=== PATIENT | male | born 1980 | race Caucasian/White ===

== ENCOUNTER 2019-08-31 14:27 | Emergency (ER) | payer OTHER ==
[2019-08-31 14:33] VITALS: RESP 18
[2019-08-31] MEDS ORDERED: ONDANSETRON 4 MG/2 ML VIAL IVP STA (14:55)
[2019-08-31] MEDS ORDERED: SODIUM CHLORIDE 0.9% 1,000 ML IV STA (14:55)
[2019-08-31 15:05] LABS: Basophils # (A) 0.1 k/uL (0-0.2); Basophils % (A) 1 %; Eosinophils # (A) 0.1 k/uL (0-0.7); Eosinophils % (A) 1 %; HCT 45.2 % (39.0-53.0); HGB 15.1 gm/dL (13.0-17.5); Lymphocytes # (A) 1.1 k/uL (1.0-4.8); Lymphocytes % (A) 12 %; MCH 30.5 pg (25.0-35.0); MCHC 33.3 g/dL (31.0-37.0); MCV 91.6 fL (80.0-100.0); Mean Platelet Volume 7.4; Monocytes # (A) 0.3 k/uL (0-1.0); Monocytes % (A) 3 %; Neutrophils # (A) 7.1 k/uL (1.3-7.7); Neutrophils % (A) 82 %; Platelet Count 351 k/uL (150-450); RBC 4.94 m/uL (4.30-5.90); RDW 14.8 % (11.5-15.5); WBC 8.7 k/uL (3.8-10.6)
--- NOTE | 2019-08-31 15:10 | ED ---
General Adult HPI - General Chief complaint: Abdominal Pain Stated complaint: Vomiting Time Seen by Provider: 08/31/19 14:38 Source: patient, RN notes reviewed Mode of arrival: ambulatory Limitations: no limitations - History of Present Illness Initial comments: 39-year-old male with a past medical history of kidney stones, psoriasis, alcoholism presents to the emergency department for a little nausea vomiting. Patient states he has been nauseous with episodes of vomiting for the past 24 hours. Patient states he thinks he has food poisoning. He denies any significant abdominal pain. Denies any diarrhea. Patient states that with a possible he actually started feeling better but they seem he needs some fluids and antinausea medication. He does not have any history of fevers.Patient has no other complaints at this time including shortness of breath, chest pain, abdominal pain, headache, or visual changes. - Related Data Home Medications Medication Instructions Recorded Confirmed Divalproex [Depakote] 500 mg PO TID 09/10/14 05/14/15 Ibuprofen [Motrin] 800 mg PO Q6HR PRN 09/10/14 05/14/15 diphenhydrAMINE [Benadryl] 50 mg PO HS PRN 09/10/14 05/14/15 PARoxetine [Paxil] 20 mg PO DAILY 05/14/15 05/14/15 Previous Rx's Medication Instructions Recorded Dicyclomine [Bentyl] 20 mg PO QID #20 tablet 05/14/15 Ondansetron Odt [Zofran ODT] 4 mg PO Q8HR PRN #15 tab 05/14/15 Ondansetron [Zofran ODT] 4 mg PO Q8HR PRN #15 tab 08/31/19 Allergies Allergy/AdvReac Type Severity Reaction Status Date / Time No Known Allergies Allergy Verified 08/31/19 14:29 Review of Systems ROS Statement: Those systems with pertinent positive or pertinent negative responses have been documented in the HPI. ROS Other: All systems not noted in ROS Statement are negative. Past Medical History Past Medical History: Seizure Disorder Additional Past Medical History / Comment(s): kidney stones, psorasis, hx alcoho lism History of Any Multi-Drug Resistant Organisms: None Reported Additional Past Surgical History / Comment(s): oral surgery Past Psychological History: Anxiety Smoking Status: Current every day smoker Past Alcohol Use History: Daily, Occasional Past Drug Use History: Marijuana General Exam Limitations: no limitations General appearance: alert, in no apparent distress Head exam: Present: atraumatic, normocephalic, normal inspection Eye exam: Present: normal appearance, PERRL, EOMI. Absent: scleral icterus, conjunctival injection, periorbital swelling ENT exam: Present: normal exam, mucous membranes moist Neck exam: Present: normal inspection, full ROM. Absent: tenderness, m eningismus, lymphadenopathy Respiratory exam: Present: normal lung sounds bilaterally. Absent: respiratory distress, wheezes, rales, rhonchi, stridor Cardiovascular Exam: Present: regular rate, normal rhythm, normal heart sounds. Absent: systolic murmur, diastolic murmur, rubs, gallop, clicks GI/Abdominal exam: Present: soft, normal bowel sounds. Absent: distended, tenderness, guarding, rebound, rigid Neurological exam: Present: alert Course Vital Signs 08/31/19 14:30 Temperature 98.7 F Pulse Rate 87 Respiratory 18 Rate Blood Pressure 134/79 O2 Sat by Pulse 100 Oximetry Medical Decision Making - Medical Decision Making Vitals are stable. CBC CMP unremarkable. Anion gap of 15 likely related to start racing a ptosis. Amylase and lipase minimally elevated however not 3 times above normal limits. Patient does not have any abdominal pain consistent with pancreatitis. Patient was given fluids and Zofran and actually had significant improvement in pain. Patient will be discharged home to follow up with primary care. He will return here to the emergency room for any worsening symptoms. - Lab Data Result diagrams: 08/31/19 14:43 08/31/19 14:57 Lab Results 08/31/19 08/31/19 Range/Units 14:43 14:57 WBC 8.7 (3.8-10.6) k/uL RBC 4.94 (4.30-5.90) m/uL Hgb 15.1 (13.0-17.5) gm/dL Hct 45.2 (39.0-53.0) % MCV 91.6 (80.0-100.0) fL MCH 30.5 (25.0-35.0) pg MCHC 33.3 (31.0-37.0) g/dL RDW 14.8 (11.5-15.5) % Plt Count 351 (150-450) k/uL Neutrophils % 82 % Lymphocytes % 12 % Monocytes % 3 % Eosinophils % 1 % Basophils % 1 % Neutrophils # 7.1 (1.3-7.7) k/uL Lymphocytes # 1.1 (1.0-4.8) k/uL Monocytes # 0.3 (0-1.0) k/uL Eosinophils # 0.1 (0-0.7) k/uL Basophils # 0.1 (0-0.2) k/uL Sodium 142 (137-145) mmol/L Potassium 4.0 (3.5-5.1) mmol/L Chloride 110 H (98-107) mmol/L Carbon Dioxide 17 L (22-30) mmol/L Anion Gap 15 mmol/L BUN 10 (9-20) mg/dL Creatinine 0.52 L (0.66-1.25) mg/dL Est GFR (CKD-EPI)AfAm >90 (>60 ml/min/1.73 sqM) Est GFR (CKD-EPI)NonAf >90 (>60 ml/min/1.73 sqM) Glucose 108 H (74-99) mg/dL Calcium 9.5 (8.4-10.2) mg/dL Total Bilirubin 0.3 (0.2-1.3) mg/dL AST 28 (17-59) U/L ALT 26 (4-49) U/L Alkaline Phosphatase 70 (38-126) U/L Total Protein 7.2 (6.3-8.2) g/dL Albumin 4.7 (3.5-5.0) g/dL Amylase 115 H (30-110) U/L Lipase 343 H (23-300) U/L Disposition Clinical Impression: Nausea and vomiting Disposition: HOME SELF-CARE Condition: Good Instructions (If sedation given, give patient instructions): Acute Nausea and Vomiting (ED) Additional Instructions: Please take Zofran as directed. Please follow-up with primary care in 1-2 days. Return here to the emergency room for any worsening symptoms. Prescriptions: Ondansetron [Zofran ODT] 4 mg PO Q8HR PRN #15 tab PRN Reason: Nausea Is patient prescribed a controlled substance at d/c from ED?: No Referrals: Roshni Valerio MD [Primary Care Provider] - 1-2 days Time of Disposition: 15:42
[2019-08-31 15:13] LABS: ALT 26 U/L (4-49); AST 28 U/L (17-59); African American GFR (CKD) >90 (>60 ml/min/1.73 sqM); Albumin 4.7 g/dL (3.5-5.0); Alkaline Phosphatase 70 U/L (38-126); Amylase 115 U/L (30-110); Anion Gap 15 mmol/L; Blood Urea Nitrogen 10 mg/dL (9-20); Calcium 9.5 mg/dL (8.4-10.2); Carbon Dioxide 17 mmol/L (22-30); Chloride 110 mmol/L (98-107); Glucose 108 mg/dL (74-99); Non-African American GFR(CKD) >90 (>60 ml/min/1.73 sqM); Sodium 142 mmol/L (137-145); Total Bilirubin 0.3 mg/dL (0.2-1.3); Total Protein 7.2 g/dL (6.3-8.2)
--- NOTE | 2019-08-31 15:22 | XR ---
EXAMINATION TYPE: XR KUB DATE OF EXAM: 08/31/2019 COMPARISON: 05/14/2015 HISTORY: Abdominal pain TECHNIQUE: 2 views upright FINDINGS: There is no sign of intestinal obstruction or pneumoperitoneum. Fecal pattern is normal. Yanci ng bases are clear. There are no pathologic calcifications. IMPRESSION: Nonacute abdomen. No change.
[2019-08-31] MEDS ORDERED: ONDANSETRON 4 MG ODT STARTER PACK 2 TAB BTL PO STA (15:43)
[2019-08-31 15:51] VITALS: BP 120/85; PULSE 88; TEMP 99
== END 2019-08-31 15:51 | disposition home or self-care (01) ==
LOC: EC 14:27
DX: R11.2 Nausea with vomiting, unspecified (principal); G40.909 Epilepsy, unspecified, not intractable, without status epilepticus; F41.9 Anxiety disorder, unspecified; F17.200 Nicotine dependence, unspecified, uncomplicated; Z79.899 Other long term (current) drug therapy
CPT/HCPCS: 36415; 80053; 82150; 83690; 85025; 74018; 99284; 96374; 96361; J2405; S0119

== ENCOUNTER 2019-11-03 08:46 | Emergency (ER) | payer OTHER ==
[2019-11-03 08:58] VITALS: RESP 18
--- NOTE | 2019-11-03 09:11 | ED ---
General Adult HPI - General Chief complaint: Psychiatric Symptoms Stated complaint: (Withdrawal/suicidal thoughts Time Seen by Provider: 11/03/19 08:58 Source: patient, RN notes reviewed Mode of arrival: ambulatory Limitations: no limitations - History of Present Illness Initial comments: Patient is a pleasant 39-year-old male presenting to the emergency department with thoughts of getting off opiates. Patient states he has been on opiates for years and wants to get off them. Last used yesterday. Patient states he has had problems with fentanyl and hydrocodone and others. Patient states he does feel achy all over. Patient states earlier today he felt a little bit suicidal. Patient denies having any plan. No homicidal thoughts. - Related Data Home Medications Medication Instructions Recorded Confirmed Adalimumab [Humira Pen] 40 mg SQ Q14D 11/03/19 11/03/19 PARoxetine HCL [Paxil] 30 mg PO DAILY 11/03/19 11/03/19 Sildenafil Citrate 50 mg PO DAILY PRN 11/03/19 11/03/19 Terbinafine [LamISIL] 250 mg PO DAILY 11/03/19 11/03/19 tiZANidine HCL 4 mg PO DAILY 11/03/19 11/03/19 traZODone HCL [Desyrel] 100 mg PO HS 11/03/19 11/03/19 Allergies Allergy/AdvReac Type Severity Reaction Status Date / Time No Known Allergies Allergy Verified 11/03/19 10:13 Review of Systems ROS Statement: Those systems with pertinent positive or pertinent negative responses have been documented in the HPI. ROS Other: All systems not noted in ROS Statement are negative. Constitutional: Denies: fever Eyes: Denies: eye pain ENT: Denies: ear pain Respiratory: Denies: cough Cardiovascular: Denies: chest pain Gastrointestinal: Denies: vomiting Genitourinary: Denies: dysuria Musculoskeletal: Denies: arthralgia Skin: Reports: rash (Patient states he has psoriasis that is actually improving) Neurological: Reports: headache (Mild headache) Psychiatric: Reports: as per HPI Past Medical History Past Medical History: Seizure Disorder Additional Past Medical History / Comment(s): kidney stones, psorasis, hx alcoholism History of Any Multi-Drug Resistant Organisms: None Reported Additional Past Surgical History / Comment(s): oral surgery Past Psychological History: Anxiety, Bipolar Smoking Status: Current every day smoker, Vaper Past Alcohol Use History: None Reported Past Drug Use History: Marijuana, Opiates General Exam Limitations: no limitations General appearance: alert, in no apparent distress Head exam: Present: normocephalic Eye exam: Present: normal appearance Neck exam: Present: normal inspection Respiratory exam: Present: normal lung sounds bilaterally Cardiovascular Exam: Present: regular rate, normal rhythm GI/Abdominal exam: Present: soft. Absent: tenderness Extremities exam: Present: normal inspection Neurological exam: Present: alert Psychiatric exam: Present: normal affect, normal mood Skin exam: Present: other (Patient has diffuse lesions including the back that appear chronic with patient's history of psoriasis) Course Vital Signs 11/03/19 11/03/19 08:52 12:45 Temperature 98.1 F 99.2 F Pulse Rate 85 74 Respiratory 18 18 Rate Blood Pressure 133/87 127/72 O2 Sat by Pulse 100 98 Oximetry Medical Decision Making - Medical Decision Making Patient seen by mental health services with plan for discharge. Patient reevaluated and denies suicidal ideation and does contract for safety. Patient states he'll head to [place] tomorrow for rehab. Patient was given rehab facility numbers. - Lab Data Lab Results 11/03/19 Range/Units 09:19 Urine Opiates Screen Not Detected (NotDetected) Ur Oxycodone Screen Not Detected (NotDetected) Urine Methadone Screen Not Detected (NotDetected) Ur Propoxyphene Screen Not Detected (NotDetected) Ur Barbiturates Screen Not Detected (NotDetected) U Tricyclic Antidepress Not Detected (NotDetected) Ur Phencyclidine Scrn Not Detected (NotDetected) Ur Amphetamines Screen Not Detected (NotDetected) U Methamphetamines Scrn Not Detected (NotDetected) U Benzodiazepines Scrn Not Detected (NotDetected) Urine Cocaine Screen Not Detected (NotDetected) U Marijuana (THC) Screen Detected H (NotDetected) Disposition Clinical Impression: Depression, Opiate abuse, continuous Disposition: HOME SELF-CARE Condition: Stable Instructions (If sedation given, give patient instructions): Depression (ED), Opioid Withdrawal (ED), Opioid Use Disorder (ED) Additional Instructions: Please follow-up with primary care physician in the next couple days for reche ck. Please follow-up with drug rehab, number provided. Return for thoughts of self-harm, worsening symptoms or other concerns. Is patient prescribed a controlled substance at d/c from ED?: No Referrals: Roshni Valerio MD [Primary Care Provider] - 1-2 days Time of Disposition: 14:36
[2019-11-03 10:38] LABS: Amphetamine Screen,Urine Not Detected (NotDetected); Barbiturate Screen,Urine Not Detected (NotDetected); Benzodiazepines Screen,Urine Not Detected (NotDetected); Cocaine Screen,Urine Not Detected (NotDetected); Methadone Screen, Urine Not Detected (NotDetected); Opiate Screen,Urine Not Detected (NotDetected); Oxycodone Screen, Urine Not Detected (NotDetected); Phencyclidine Screen,Urine Not Detected (NotDetected); Tricyclic Antidepressant,Urine Not Detected (NotDetected); Urn Cannabinoid Scrn Detected (NotDetected)
[2019-11-03] MEDS ORDERED: LORazepam 1 MG TAB PO STA (12:14)
[2019-11-03 14:58] VITALS: BP 134/86; PULSE 82; TEMP 98.8
== END 2019-11-03 14:59 | disposition home or self-care (01) ==
LOC: EC 08:46
DX: F31.9 Bipolar disorder, unspecified (principal); F11.10 Opioid abuse, uncomplicated; L98.9 Disorder of the skin and subcutaneous tissue, unspecified; F41.9 Anxiety disorder, unspecified; F17.290 Nicotine dependence, other tobacco product, uncomplicated; Z79.899 Other long term (current) drug therapy
CPT/HCPCS: 80306; 82075; 99285

== ENCOUNTER 2020-06-12 18:38 | Inpatient (IN) | payer OTHER ==
[2020-06-12 20:02] LABS: Basophils # (A) 0.1 k/uL (0-0.2); Basophils % (A) 1 %; Eosinophils # (A) 0.1 k/uL (0-0.7); Eosinophils % (A) 1 %; HCT 50.3 % (39.0-53.0); HGB 17.3 gm/dL (13.0-17.5); Lymphocytes # (A) 2.1 k/uL (1.0-4.8); Lymphocytes % (A) 19 %; MCH 30.1 pg (25.0-35.0); MCHC 34.5 g/dL (31.0-37.0); MCV 87.2 fL (80.0-100.0); Mean Platelet Volume 7.2; Monocytes # (A) 0.5 k/uL (0-1.0); Monocytes % (A) 5 %; Neutrophils # (A) 8.3 k/uL (1.3-7.7); Neutrophils % (A) 74 %; Platelet Count 304 k/uL (150-450); RBC 5.76 m/uL (4.30-5.90); RDW 14.9 % (11.5-15.5); WBC 11.2 k/uL (3.8-10.6)
[2020-06-12 20:08] LABS: Amphetamine Screen,Urine Not Detected (NotDetected); Barbiturate Screen,Urine Not Detected (NotDetected); Benzodiazepines Screen,Urine Not Detected (NotDetected); Cocaine Screen,Urine Not Detected (NotDetected); Methadone Screen, Urine Not Detected (NotDetected); Opiate Screen,Urine Not Detected (NotDetected); Oxycodone Screen, Urine Not Detected (NotDetected); Phencyclidine Screen,Urine Not Detected (NotDetected); Tricyclic Antidepressant,Urine Not Detected (NotDetected); Urn Cannabinoid Scrn Detected (NotDetected)
[2020-06-12 20:09] LABS: Appearance,Urine Clear (Clear); Bilirubin,Urine Negative (Negative); Blood,Urine Moderate (Negative); Color,Urine Yellow; Glucose,Urine (UA) 4+ (Negative); Ketones,Urine 1+ (Negative); Leukocyte Esterase,Urine Negative (Negative); Mucus,Urine Moderate /hpf; Nitrite,Urine Negative (Negative); Protein,Urine 2+ (Negative); RBC,Urine 6 /hpf (0-5); Specific Gravity,Urine 1.008 (1.001-1.035); Urobilinogen,Urine <2.0 mg/dL (<2.0); WBC,Urine 4 /hpf (0-5)
[2020-06-12 20:10] LABS: ALT 104 U/L (4-49); AST 248 U/L (17-59); African American GFR (CKD) >90 (>60 ml/min/1.73 sqM); Alkaline Phosphatase 80 U/L (38-126); Anion Gap 17 mmol/L; Blood Urea Nitrogen 15 mg/dL (9-20); Calcium 9.4 mg/dL (8.4-10.2); Carbon Dioxide 25 mmol/L (22-30); Chloride 100 mmol/L (98-107); Glucose 238 mg/dL (74-99); Non-African American GFR(CKD) >90 (>60 ml/min/1.73 sqM); Potassium 3.9 mmol/L (3.5-5.1); Sodium 142 mmol/L (137-145); Total Bilirubin 0.6 mg/dL (0.2-1.3); Total Protein 7.4 g/dL (6.3-8.2)
[2020-06-12] MEDS ORDERED: ONDANSETRON 4 MG/2 ML VIAL IVP STA (20:17)
--- NOTE | 2020-06-12 20:20 | ED ---
General Adult HPI - General Source: patient Mode of arrival: ambulatory Limitations: no limitations <Kumar Milton - Last Filed: 06/12/20 21:28> <Jenn Barragan - Last Filed: 06/16/20 02:52> - General Chief complaint: Nausea/Vomiting/Diarrhea Stated complaint: Mental Health/suicidal Time Seen by Provider: 06/12/20 20:15 - History of Present Illness Initial comments: 40-year-old male with history of alcohol abuse presents to emergency Department with a chief complaint of alcohol withdrawal. Patient reports he typically drinks about half a gallon of vodka per day. States his been ongoing for the past year since the pandemic again. Patient reports he lost a job and has turned to alcohol. Patient reports the last time he drank was 12 PM so it has been about 8 hours since his last alcohol drink. Patient reports now he has developed tremors, diaphoretic, increased anxiety nausea, vomiting but no diar jossue. He denies any chest pain or shortness of breath. Patient states he wants to go to [facility] for rehab on Monday but needs some help until then. He's been also expresses suicidal thoughts due to increased drinking. He has a plan to do it with an opiate overdose. (Kumar Milton) - Related Data Home Medications Medication Instructions Recorded Confirmed Adalimumab [Humira(Cf) Pen] 40 mg SQ Q14D 11/03/19 06/12/20 PARoxetine HCL [Paxil] 30 mg PO DAILY 11/03/19 06/12/20 traZODone HCL [Desyrel] 100 mg PO HS 11/03/19 06/12/20 Loratadine [Claritin] 10 mg PO DAILY PRN 06/12/20 06/12/20 Meloxicam 15 mg PO DAILY 06/12/20 06/12/20 busPIRone HCl [Buspar] 5 mg PO BID 06/12/20 06/12/20 Previous Rx's Medication Instructions Recorded ARIPiprazole [Abilify] 2.5 mg PO DAILY #30 tab 06/15/20 Folic Acid 1 mg PO DAILY #30 tablet 06/15/20 Ibuprofen [Motrin] 400 mg PO Q6HR PRN tab 06/15/20 LORazepam [Ativan] 1 mg PO TID PRN #10 tab 06/15/20 Multivitamins, Thera [Multivitamin] 1 tab PO DAILY #30 tablet 06/15/20 Thiamine [Vitamin B-1] 100 mg PO DAILY #30 tablet 06/15/20 chlordiazePOXIDE HCl [Librium] 25 mg PO QID #30 cap 06/15/20 Allergies Allergy/AdvReac Type Severity Reaction Status Date / Time No Known Allergies Allergy Verified 06/12/20 20:44 Review of Systems ROS Other: All systems not noted in ROS Statement are negative. <Kumar Milton - Last Filed: 06/12/20 21:28> ROS Other: All systems not noted in ROS Statement are negative. <Jenn Barragan - Last Filed: 06/16/20 02:52> ROS Statement: Those systems with pertinent positive or pertinent negative responses have been documented in the HPI. Past Medical History Past Medical History: Seizure Disorder Additional Past Medical History / Comment(s): kidney stones, psorasis, hx alcoholism, History of Any Multi-Drug Resistant Organisms: None Reported Additional Past Surgical History / Comment(s): oral surgery, Past Psychological History: Anxiety, Bipolar Smoking Status: Current every day smoker, Vaper Past Alcohol Use History: Abuse, Daily, Heavy Past Drug Use History: Marijuana, Opiates <Kumar Milton - Last Filed: 06/12/20 21:28> General Exam Limitations: no limitations General appearance: alert, in no apparent distress, anxious Head exam: Present: atraumatic, normocephalic, normal inspection Eye exam: Present: normal appearance, PERRL, EOMI Pupils: Present: normal accommodation ENT exam: Present: normal exam, normal oropharynx Neck exam: Present: normal inspection, full ROM. Absent: tenderness Respiratory exam: Present: normal lung sounds bilaterally. Absent: respiratory distress, wheezes, rales, rhonchi, stridor, chest wall tenderness Cardiovascular Exam: Present: regular rate, normal rhythm, normal heart sounds. Absent: systolic murmur GI/Abdominal exam: Present: soft. Absent: distended, tenderness, guarding Extremities exam: Present: normal inspection, full ROM, normal capillary refill. Absent: tenderness, pedal edema, joint swelling Back exam: Present: normal inspection, full ROM. Absent: tenderness, CVA tenderness (R), CVA tenderness (L) Neurological exam: Present: alert, oriented X3, normal gait Psychiatric exam: Present: normal affect, anxious, other (Tremors) Skin exam: Present: warm, dry, intact, normal color <Kumar Milton - Last Filed: 06/12/20 21:28> Course Vital Signs 06/12/20 06/12/20 06/12/20 18:48 21:00 22:09 Temperature 97.4 F L 98.6 F Pulse Rate 124 H 112 H 101 H Respiratory 18 18 18 Rate Blood Pressure 144/78 138/79 O2 Sat by Pulse 100 99 99 Oximetry EKG Findings - EKG Comments: EKG Findings:: Sinus tachycardia, inverted T waves in lead 3. Ventricular rate 123, IN 128, QRS 130, QTC 386. <Kumar Milton - Last Filed: 06/12/20 21:28> Medical Decision Making - Lab Data Result diagrams: 06/12/20 20:38 06/12/20 19:54 <Kumar Milton - Last Filed: 06/12/20 21:28> - Lab Data Result diagrams: 06/14/20 05:04 06/14/20 05:04 <Jenn Barragan - Last Filed: 06/16/20 02:52> - Medical Decision Making 40-year-old male presents to the emergency department with a chief complaint of alcohol intoxication. Does have history of alcohol abuse for the past year due to his life circumstances. On physical examination, patient is very anxious and is tearing up when talking. Patient is also tremulous and diaphoretic, as well as tachycardic. He did express suicidal thoughts with a plan. CBC reveals mild leukocytosis of 11.2 K likely reactive to the vomiting. CMP reveals h yperglycemia of 248. Anion gap of 17. UA also showed glucosuria along with +1 ketones. Blood alcohol 275. However, patient states that he is not diabetic. He also reports decreased food intake over the last few days and has been getting his caloric intake from alcohol. Drug screen positive for marijuana only. Patient will be admitted medically for alcohol intoxication with a psychiatric consult. Case discussed with I spoke with Dr Rizo who will admit. (Kumar Milton) I was available for consultation in the emergency department. The history and physical exam were done by the midlevel provider. I was consulted for this patients care. I reviewed the case with the midlevel provider and based on their presentation of the patient, I agree with the assessment, medical decision making and plan of care as documented. Chart was dictated using [employer] dictation software. Attempts were made to correct any dictation errors however some typographical errors may persist. Patient was seen during a national state of emergency due to the Covid-19 pandemic. (Jenn Barragan) - Lab Data Lab Results 06/12/20 06/12/20 06/12/20 Range/Units 19:31 19:31 19:54 WBC 11.2 H (3.8-10.6) k/uL RBC 5.76 (4.30-5.90) m/uL Hgb 17.3 (13.0-17.5) gm/dL Hct 50.3 (39.0-53.0) % MCV 87.2 (80.0-100.0) fL MCH 30.1 (25.0-35.0) pg MCHC 34.5 (31.0-37.0) g/dL RDW 14.9 (11.5-15.5) % Plt Count 304 (150-450) k/uL MPV 7.2 Neutrophils % 74 % Lymphocytes % 19 % Monocytes % 5 % Eosinophils % 1 % Basophils % 1 % Neutrophils # 8.3 H (1.3-7.7) k/uL Lymphocytes # 2.1 (1.0-4.8) k/uL Monocytes # 0.5 (0-1.0) k/uL Eosinophils # 0.1 (0-0.7) k/uL Basophils # 0.1 (0-0.2) k/uL Sodium (137-145) mmol/L Potassium (3.5-5.1) mmol/L Chloride (98-107) mmol/L Carbon Dioxide (22-30) mmol/L Anion Gap mmol/L BUN (9-20) mg/dL Creatinine (0.66-1.25) mg/dL Est GFR (CKD-EPI)AfAm (>60 ml/min/1.73 sqM) Est GFR (CKD-EPI)NonAf (>60 ml/min/1.73 sqM) Glucose (74-99) mg/dL POC Glucose (mg/dL) (75-99) mg/dL POC Glu Train Attendant ID Calcium (8.4-10.2) mg/dL Magnesium (1.6-2.3) mg/dL Total Bilirubin (0.2-1.3) mg/dL AST (17-59) U/L ALT (4-49) U/L Alkaline Phosphatase (38-126) U/L Total Protein (6.3-8.2) g/dL Albumin (3.5-5.0) g/dL Urine Color Yellow Urine Appearance Clear (Clear) Urine pH 6.0 (5.0-8.0) Ur Specific [place] 1.008 (1.001-1.035) Urine Protein 2+ H (Negative) Urine Glucose (UA) 4+ H (Negative) Urine Ketones 1+ H (Negative) Urine Blood Moderate H (Negative) Urine Nitrite Negative (Negative) Urine Bilirubin Negative (Negative) Urine Urobilinogen <2.0 (<2.0) mg/dL Ur Leukocyte Esterase Negative (Negative) Urine RBC 6 H (0-5) /hpf Urine WBC 4 (0-5) /hpf Urine Mucus Moderate H (None) /hpf Urine Opiates Screen Not Detected (NotDetected) Ur Oxycodone Screen Not Detected (NotDetected) Urine Methadone Screen Not Detected (NotDetected) Ur Propoxyphene Screen Not Detected (NotDetected) Ur Barbiturates Screen Not Detected (NotDetected) U Tricyclic Antidepress Not Detected (NotDetected) Ur Phencyclidine Scrn Not Detected (NotDetected) Ur Amphetamines Screen Not Detected (NotDetected) U Methamphetamines Scrn Not Detected (NotDetected) U Benzodiazepines Scrn Not Detected (NotDetected) Urine Cocaine Screen Not Detected (NotDetected) U Marijuana (THC) Screen Detected H (NotDetected) Serum Alcohol mg/dL Coronavirus (PCR) (Not Detectd) 06/12/20 06/12/20 06/12/20 Range/Units 19:54 20:38 21:15 WBC 11.2 H (3.8-10.6) k/uL RBC 5.56 (4.30-5.90) m/uL Hgb 17.2 (13.0-17.5) gm/dL Hct 48.4 (39.0-53.0) % MCV 87.0 (80.0-100.0) fL MCH 30.9 (25.0-35.0) pg MCHC 35.5 (31.0-37.0) g/dL RDW 14.9 (11.5-15.5) % Plt Count 298 (150-450) k/uL MPV 7.2 Neutrophils % 74 % Lymphocytes % 19 % Monocytes % 5 % Eosinophils % 1 % Basophils % 1 % Neutrophils # 8.3 H (1.3-7.7) k/uL Lymphocytes # 2.1 (1.0-4.8) k/uL Monocytes # 0.6 (0-1.0) k/uL Eosinophils # 0.1 (0-0.7) k/uL Basophils # 0.1 (0-0.2) k/uL Sodium 142 (137-145) mmol/L Potassium 3.9 (3.5-5.1) mmol/L Chloride 100 (98-107) mmol/L Carbon Dioxide 25 (22-30) mmol/L Anion Gap 17 mmol/L BUN 15 (9-20) mg/dL Creatinine 0.72 (0.66-1.25) mg/dL Est GFR (CKD-EPI)AfAm >90 (>60 ml/min/1.73 sqM) Est GFR (CKD-EPI)NonAf >90 (>60 ml/min/1.73 sqM) Glucose 238 H (74-99) mg/dL POC Glucose (mg/dL) (75-99) mg/dL POC Glu Train Attendant ID Calcium 9.4 (8.4-10.2) mg/dL Magnesium (1.6-2.3) mg/dL Total Bilirubin 0.6 (0.2-1.3) mg/dL AST 248 H (17-59) U/L ALT 104 H (4-49) U/L Alkaline Phosphatase 80 (38-126) U/L Total Protein 7.4 (6.3-8.2) g/dL Albumin 5.0 (3.5-5.0) g/dL Urine Color Urine Appearance (Clear) Urine pH (5.0-8.0) Ur Specific [place] (1.001-1.035) Urine Protein (Negative) Urine Glucose (UA) (Negative) Urine Ketones (Negative) Urine Blood (Negative) Urine Nitrite (Negative) Urine Bilirubin (Negative) Urine Urobilinogen (<2.0) mg/dL Ur Leukocyte Esterase (Negative) Urine RBC (0-5) /hpf Urine WBC (0-5) /hpf Urine Mucus (None) /hpf Urine Opiates Screen (NotDetected) Ur Oxycodone Screen (NotDetected) Urine Methadone Screen (NotDetected) Ur Propoxyphene Screen (NotDetected) Ur Barbiturates Screen (NotDetected) U Tricyclic Antidepress (NotDetected) Ur Phencyclidine Scrn (NotDetected) Ur Amphetamines Screen (NotDetected) U Methamphetamines Scrn (NotDetected) U Benzodiazepines Scrn (NotDetected) Urine Cocaine Screen (NotDetected) U Marijuana (THC) Screen (NotDetected) Serum Alcohol 273 H* mg/dL Coronavirus (PCR) Not Detected (Not Detectd) 06/12/20 06/13/20 06/13/20 Range/Units 21:54 06:19 11:45 WBC (3.8-10.6) k/uL RBC (4.30-5.90) m/uL Hgb (13.0-17.5) gm/dL Hct (39.0-53.0) % MCV (80.0-100.0) fL MCH (25.0-35.0) pg MCHC (31.0-37.0) g/dL RDW (11.5-15.5) % Plt Count (150-450) k/uL MPV Neutrophils % % Lymphocytes % % Monocytes % % Eosinophils % % Basophils % % Neutrophils # (1.3-7.7) k/uL Lymphocytes # (1.0-4.8) k/uL Monocytes # (0-1.0) k/uL Eosinophils # (0-0.7) k/uL Basophils # (0-0.2) k/uL Sodium (137-145) mmol/L Potassium (3.5-5.1) mmol/L Chloride (98-107) mmol/L Carbon Dioxide (22-30) mmol/L Anion Gap mmol/L BUN (9-20) mg/dL Creatinine (0.66-1.25) mg/dL Est GFR (CKD-EPI)AfAm (>60 ml/min/1.73 sqM) Est GFR (CKD-EPI)NonAf (>60 ml/min/1.73 sqM) Glucose (74-99) mg/dL POC Glucose (mg/dL) 81 93 102 H (75-99) mg/dL POC Glu Train Attendant Nayana Neavrez, Mary Castillo Calcium (8.4-10.2) mg/dL Magnesium (1.6-2.3) mg/dL Total Bilirubin (0.2-1.3) mg/dL AST (17-59) U/L ALT (4-49) U/L Alkaline Phosphatase (38-126) U/L Total Protein (6.3-8.2) g/dL Albumin (3.5-5.0) g/dL Urine Color Urine Appearance (Clear) Urine pH (5.0-8.0) Ur Specific [place] (1.001-1.035) Urine Protein (Negative) Urine Glucose (UA) (Negative) Urine Ketones (Negative) Urine Blood (Negative) Urine Nitrite (Negative) Urine Bilirubin (Negative) Urine Urobilinogen (<2.0) mg/dL Ur Leukocyte Esterase (Negative) Urine RBC (0-5) /hpf Urine WBC (0-5) /hpf Urine Mucus (None) /hpf Urine Opiates Screen (NotDetected) Ur Oxycodone Screen (NotDetected) Urine Methadone Screen (NotDetected) Ur Propoxyphene Screen (NotDetected) Ur Barbiturates Screen (NotDetected) U Tricyclic Antidepress (NotDetected) Ur Phencyclidine Scrn (NotDetected) Ur Amphetamines Screen (NotDetected) U Methamphetamines Scrn (NotDetected) U Benzodiazepines Scrn (NotDetected) Urine Cocaine Screen (NotDetected) U Marijuana (THC) Screen (NotDetected) Serum Alcohol mg/dL Coronavirus (PCR) (Not Detectd) 06/13/20 06/13/20 06/13/20 Range/Units 11:47 11:47 17:11 WBC 7.7 (3.8-10.6) k/uL RBC 5.01 (4.30-5.90) m/uL Hgb 14.6 (13.0-17.5) gm/dL Hct 44.9 (39.0-53.0) % MCV 89.5 (80.0-100.0) fL MCH 29.2 (25.0-35.0) pg MCHC 32.6 (31.0-37.0) g/dL RDW 15.3 (11.5-15.5) % Plt Count 190 (150-450) k/uL MPV 7.5 Neutrophils % 73 % Lymphocytes % 19 % Monocytes % 5 % Eosinophils % 2 % Basophils % 1 % Neutrophils # 5.6 (1.3-7.7) k/uL Lymphocytes # 1.5 (1.0-4.8) k/uL Monocytes # 0.4 (0-1.0) k/uL Eosinophils # 0.1 (0-0.7) k/uL Basophils # 0.0 (0-0.2) k/uL Sodium 135 L (137-145) mmol/L Potassium 4.1 (3.5-5.1) mmol/L Chloride 98 (98-107) mmol/L Carbon Dioxide 31 H (22-30) mmol/L Anion Gap 6 mmol/L BUN 15 (9-20) mg/dL Creatinine 0.73 (0.66-1.25) mg/dL Est GFR (CKD-EPI)AfAm >90 (>60 ml/min/1.73 sqM) Est GFR (CKD-EPI)NonAf >90 (>60 ml/min/1.73 sqM) Glucose 103 H (74-99) mg/dL POC Glucose (mg/dL) 128 H (75-99) mg/dL POC Glu Train Attendant ID Adelia Lozoya Calcium 9.4 (8.4-10.2) mg/dL Magnesium 1.4 L (1.6-2.3) mg/dL Total Bilirubin (0.2-1.3) mg/dL AST (17-59) U/L ALT (4-49) U/L Alkaline Phosphatase (38-126) U/L Total Protein (6.3-8.2) g/dL Albumin (3.5-5.0) g/dL Urine Color Urine Appearance (Clear) Urine pH (5.0-8.0) Ur Specific [place] (1.001-1.035) Urine Protein (Negative) Urine Glucose (UA) (Negative) Urine Ketones (Negative) Urine Blood (Negative) Urine Nitrite (Negative) Urine Bilirubin (Negative) Urine Urobilinogen (<2.0) mg/dL Ur Leukocyte Esterase (Negative) Urine RBC (0-5) /hpf Urine WBC (0-5) /hpf Urine Mucus (None) /hpf Urine Opiates Screen (NotDetected) Ur Oxycodone Screen (NotDetected) Urine Methadone Screen (NotDetected) Ur Propoxyphene Screen (NotDetected) Ur Barbiturates Screen (NotDetected) U Tricyclic Antidepress (NotDetected) Ur Phencyclidine Scrn (NotDetected) Ur Amphetamines Screen (NotDetected) U Methamphetamines Scrn (NotDetected) U Benzodiazepines Scrn (NotDetected) Urine Cocaine Screen (NotDetected) U Marijuana (THC) Screen (NotDetected) Serum Alcohol mg/dL Coronavirus (PCR) (Not Detectd) Disposition Is patient prescribed a controlled substance at d/c from ED?: No Time of Disposition: 21:12 <Kumar Milton - Last Filed: 06/12/20 21:28> <Jenn Barragan - Last Filed: 06/16/20 02:52> Clinical Impression: Alcohol intoxication, Hyperglycemia Disposition: ADMITTED IP TO THIS HOSP Condition: Fair
[2020-06-12] MEDS ORDERED: THIAMINE 100 MG/ML 2 ML VIAL IVP STA (20:31)
[2020-06-12] MEDS ORDERED: LORazepam 2 MG/ML INJ IV STA (20:33)
[2020-06-12] MEDS ORDERED: SODIUM CHLORIDE 0.9% 1,000 ML IV STA (20:33)
[2020-06-12 20:36] LABS: Alcohol 273 mg/dL
[2020-06-12 20:43] LABS: Basophils # (A) 0.1 k/uL (0-0.2); Basophils % (A) 1 %; Eosinophils # (A) 0.1 k/uL (0-0.7); Eosinophils % (A) 1 %; HCT 48.4 % (39.0-53.0); HGB 17.2 gm/dL (13.0-17.5); Lymphocytes # (A) 2.1 k/uL (1.0-4.8); Lymphocytes % (A) 19 %; MCH 30.9 pg (25.0-35.0); MCHC 35.5 g/dL (31.0-37.0); Mean Platelet Volume 7.2; Monocytes # (A) 0.6 k/uL (0-1.0); Monocytes % (A) 5 %; Neutrophils # (A) 8.3 k/uL (1.3-7.7); Neutrophils % (A) 74 %; Platelet Count 298 k/uL (150-450); RBC 5.56 m/uL (4.30-5.90); RDW 14.9 % (11.5-15.5); WBC 11.2 k/uL (3.8-10.6)
[2020-06-12] MEDS ORDERED: THIAMINE 100 MG/ML 2 ML VIAL IM STA (21:28)
[2020-06-12] MEDS ORDERED: MORPHINE SULFATE 4 MG/ML SYRINGE IV PRN (21:28)
[2020-06-12] MEDS ORDERED: LORazepam 2 MG/ML INJ IV PRN ×2 (21:28)
[2020-06-12] MEDS ORDERED: IBUPROFEN 400 MG TAB PO PRN (21:28)
[2020-06-12] MEDS ORDERED: ACETAMINOPHEN TAB 325 MG TAB PO PRN (21:28)
[2020-06-12] MEDS ORDERED: NALOXONE 0.4 MG/ML 1 ML VIAL IV PRN (21:28)
[2020-06-12] MEDS ORDERED: ONDANSETRON 4 MG/2 ML VIAL IVP PRN (21:28)
[2020-06-12] MEDS: LORazepam 2 MG/ML INJ IV PRN ×2 (21:56→23:14)
[2020-06-12 22:11] LABS: Glucose,Whole Blood 81 mg/dL (75-99)
[2020-06-13] MEDS: LORazepam 2 MG/ML INJ IV PRN ×4 (01:21→19:47)
[2020-06-13 06:21] LABS: Glucose,Whole Blood 93 mg/dL (75-99)
[2020-06-13] MEDS: THIAMINE 100 MG TAB PO SCH ×2 (08:55→16:51)
[2020-06-13 11:48] LABS: Glucose,Whole Blood 102 mg/dL (75-99)
[2020-06-13 12:07] LABS: Basophils % (A) 1 %; Eosinophils # (A) 0.1 k/uL (0-0.7); Eosinophils % (A) 2 %; HCT 44.9 % (39.0-53.0); HGB 14.6 gm/dL (13.0-17.5); Lymphocytes # (A) 1.5 k/uL (1.0-4.8); Lymphocytes % (A) 19 %; MCH 29.2 pg (25.0-35.0); MCHC 32.6 g/dL (31.0-37.0); MCV 89.5 fL (80.0-100.0); Mean Platelet Volume 7.5; Monocytes # (A) 0.4 k/uL (0-1.0); Monocytes % (A) 5 %; Neutrophils # (A) 5.6 k/uL (1.3-7.7); Neutrophils % (A) 73 %; Platelet Count 190 k/uL (150-450); RBC 5.01 m/uL (4.30-5.90); RDW 15.3 % (11.5-15.5); WBC 7.7 k/uL (3.8-10.6)
[2020-06-13 12:15] LABS: African American GFR (CKD) >90 (>60 ml/min/1.73 sqM); Anion Gap 6 mmol/L; Blood Urea Nitrogen 15 mg/dL (9-20); Calcium 9.4 mg/dL (8.4-10.2); Carbon Dioxide 31 mmol/L (22-30); Chloride 98 mmol/L (98-107); Glucose 103 mg/dL (74-99); Magnesium 1.4 mg/dL (1.6-2.3); Non-African American GFR(CKD) >90 (>60 ml/min/1.73 sqM); Potassium 4.1 mmol/L (3.5-5.1); Sodium 135 mmol/L (137-145)
[2020-06-13] MEDS ORDERED: LORATADINE 10 MG TAB PO PRN (17:08)
--- NOTE | 2020-06-13 17:10 | P.HPIM ---
History of Present Illness H&P Date: 06/13/20 Chief Complaint: Nausea/Vomiting/Diarrhea 40-year-old male with history of alcohol abuse presents to emergency Department with a chief complaint of alcohol withdrawal. Patient reports he typically drinks about half a gallon of vodka per day. States his been ongoing for the past year since the pandemic again. Patient reports he lost a job and has turned to alcohol. Patient reports the last time he drank was 12 PM so it has been about 8 hours since his last alcohol drink. Patient reports now he has developed tremors, diaphoretic, increased anxiety nausea, vomiting but no diarrhea. He denies any chest pain or shortness of breath. Patient states he wants to go to [facility] for rehab on Monday but needs some help until then. He's been also expresses suicidal thoughts due to increased drinking. He has a plan to do it with an opiate overdose. CBC reveals mild leukocytosis of 11.2 K likely reactive to the vomiting. CMP reveals hyperglycemia of 248. Anion gap of 17. UA also showed glucosuria along with +1 ketones. Blood alcohol 275. However, patient states that he is not diabetic. He also reports decreased food intake over the last few days and has been getting his caloric intake from alcohol. Drug screen positive for marijuana only. Patient will be admitted medically for alcohol intoxication with a psychiatric consult. Review of Systems REVIEW OF SYSTEMS: CONSTITUTIONAL: No fever, no malaise, no fatigue. HEENT: No recent visual problems or hearing problems. Denied any sore throat. CARDIOVASCULAR: No chest pain, orthopnea, PND, no palpitations, no syncope. PULMONARY: No shortness of breath, no cough, no hemoptysis. GASTROINTESTINAL: No diarrhea, no nausea, no vomiting, no abdominal pain. NEUROLOGICAL: No headaches, no weakness, no numbness. HEMATOLOGICAL: Denies any bleeding or petechiae. GENITOURINARY: Denies any burning micturition, frequency, or urgency. MUSCULOSKELETAL/RHEUMATOLOGICAL: Denies any joint pain, swelling, or any muscle pain. ENDOCRINE: Denies any polyuria or polydipsia. The rest of the 14-point review of systems is negative. Past Medical History Past Medical History: Seizure Disorder Additional Past Medical History / Comment(s): kidney stones, psorasis, hx alcoholism, History of Any Multi-Drug Resistant Organisms: None Reported Additional Past Surgical History / Comment(s): oral surgery, Past Psychological History: Anxiety, Bipolar Smoking Status: Current every day smoker, Vaper Past Alcohol Use History: Abuse, Daily, Heavy Past Drug Use History: Marijuana, Opiates Medications and Allergies Home Medications Medication Instructions Recorded Confirmed Type Adalimumab [Humira Pen] 40 mg SQ Q14D 11/03/19 06/12/20 History PARoxetine HCL [Paxil] 30 mg PO DAILY 11/03/19 06/12/20 History traZODone HCL [Desyrel] 100 mg PO HS 11/03/19 06/12/20 History Loratadine [Claritin] 10 mg PO DAILY PRN 06/12/20 06/12/20 History Meloxicam 15 mg PO DAILY 06/12/20 06/12/20 History busPIRone HCl [Buspar] 5 mg PO BID 06/12/20 06/12/20 History Allergies Allergy/AdvReac Type Severity Reaction Status Date / Time No Known Allergies Allergy Verified 06/12/20 20:44 Physical Exam Vitals: Vital Signs Temp Pulse Pulse Resp BP BP Pulse Ox 06/13/20 05:39 98.2 F 88 17 95/55 97 06/12/20 23:21 98.2 F 123 H 18 149/75 98 06/12/20 22:09 98.6 F 101 H 18 138/79 99 06/12/20 21:00 112 H 18 99 06/12/20 18:48 97.4 F L 124 H 18 144/78 100 Intake and Output 06/12/20 06/13/20 06/13/20 22:59 06:59 14:59 Intake Total 620 Balance 620 Intake: Oral 620 Other: # Voids 2 Weight 72.575 kg PHYSICAL EXAMINATION: GENERAL: The patient is alert and oriented x3, tremulous and looks ill. HEENT: Pupils are round and equally reacting to light. EOMI. No scleral icterus. No conjunctival pallor. Normocephalic, atraumatic. No pharyngeal erythema. No thyromegaly. CARDIOVASCULAR: S1 and S2 present. No murmurs, rubs, or gallops. PULMONARY: Chest is clear to auscultation, no wheezing or crackles. ABDOMEN: Soft, nontender, nondistended, normoactive bowel sounds. No palpable organomegaly. MUSCULOSKELETAL: No joint swelling or deformity. EXTREMITIES: No cyanosis, clubbing, or pedal edema. NEUROLOGICAL: Gross neurological examination did not reveal any focal deficits. SKIN: No rashes. Results CBC & Chem 7: 06/13/20 11:47 06/13/20 11:47 Labs: Abnormal Lab Results - Last 24 Hours (Table) 06/12/20 06/12/20 06/12/20 Range/Units 19:31 19:31 19:54 WBC 11.2 H (3.8-10.6) k/uL Neutrophils # 8.3 H (1.3-7.7) k/uL Glucose (74-99) mg/dL AST (17-59) U/L ALT (4-49) U/L Urine Protein 2+ H (Negative) Urine Glucose (UA) 4+ H (Negative) Urine Ketones 1+ H (Negative) Urine Blood Moderate H (Negative) Urine RBC 6 H (0-5) /hpf Urine Mucus Moderate H (None) /hpf U Marijuana (THC) Screen Detected H (NotDetected) Serum Alcohol mg/dL 06/12/20 06/12/20 Range/Units 19:54 20:38 WBC 11.2 H (3.8-10.6) k/uL Neutrophils # 8.3 H (1.3-7.7) k/uL Glucose 238 H (74-99) mg/dL AST 248 H (17-59) U/L ALT 104 H (4-49) U/L Urine Protein (Negative) Urine Glucose (UA) (Negative) Urine Ketones (Negative) Urine Blood (Negative) Urine RBC (0-5) /hpf Urine Mucus (None) /hpf U Marijuana (THC) Screen (NotDetected) Serum Alcohol 273 H* mg/dL Thrombosis Risk Factor Assmnt - Choose All That Apply Each Factor Represents 1 point: Age 41-60 years Other Risk Factors: No Thrombosis Risk Factor Assessment Total Risk Factor Score: 1 Thrombosis Risk Factor Assessment Level: Low Risk Assessment and Plan Assessment: 1. EtOH intoxication/withdrawal - We will place patient on banana bag and CIWA protocol with Ativan; schedule Librium; consult [employer] - Seizure precautions 2. Suicidal ideation; psych is consulted and recommendations are pending 3. Hyperglycemia; patient doesn't have any history of diabetes; we will monitor Accu-Cheks every before meals and at bedtime with insulin sliding scale; final recommendations at time of discharge 4. Mild leukocytosis; possibly stress-induced; no signs of infection 5. Psoriasis; we will continue with meloxicam 15 mg daily; patient takes Humira at home; we will hold off while in hospital 6. Depression/anxiety/insomnia; continue with BuSpar, Paxil and trazodone DVT prophylaxis; SCDs CODE STATUS; full code
[2020-06-13 17:25] LABS: Glucose,Whole Blood 128 mg/dL (75-99)
[2020-06-13] MEDS: 1: MVI, ADULT NO.4 WITH VIT K 10 ML, THIAMINE 100 MG, FOLIC ACID 1 MG in SODIUM CHLORIDE IV SCH ×4 (18:08)
[2020-06-13] MEDS: busPIRone HCl 5 MG TAB PO SCH (20:20)
[2020-06-13] MEDS: traZODone HCL 100 MG TAB PO SCH (20:20)
[2020-06-14 00:09] LABS: Glucose,Whole Blood 104 mg/dL (75-99)
[2020-06-14] MEDS: 1: MVI, ADULT NO.4 WITH VIT K 10 ML, THIAMINE 100 MG, FOLIC ACID 1 MG in SODIUM CHLORIDE IV SCH ×12 (03:23→23:43)
[2020-06-14 05:39] LABS: Basophils # (A) 0.1 k/uL (0-0.2); Basophils % (A) 1 %; Eosinophils # (A) 0.3 k/uL (0-0.7); Eosinophils % (A) 5 %; HCT 43.3 % (39.0-53.0); HGB 14.9 gm/dL (13.0-17.5); Lymphocytes # (A) 2.1 k/uL (1.0-4.8); Lymphocytes % (A) 31 %; MCH 30.2 pg (25.0-35.0); MCHC 34.5 g/dL (31.0-37.0); MCV 87.3 fL (80.0-100.0); Mean Platelet Volume 7.9; Monocytes # (A) 0.3 k/uL (0-1.0); Monocytes % (A) 4 %; Neutrophils # (A) 3.9 k/uL (1.3-7.7); Neutrophils % (A) 58 %; Platelet Count 178 k/uL (150-450); RBC 4.95 m/uL (4.30-5.90); RDW 14.4 % (11.5-15.5); WBC 6.7 k/uL (3.8-10.6)
[2020-06-14 07:10] LABS: Glucose,Whole Blood 116 mg/dL (75-99)
[2020-06-14] MEDS: LORazepam 2 MG/ML INJ IV PRN ×3 (08:19→16:35)
[2020-06-14] MEDS: PARoxetine 10 MG TAB PO SCH (08:19)
[2020-06-14] MEDS: THIAMINE 100 MG TAB PO SCH ×2 (08:19→16:32)
[2020-06-14] MEDS: busPIRone HCl 5 MG TAB PO SCH ×2 (08:19→21:01)
[2020-06-14] MEDS: MELOXICAM 7.5 MG TAB PO SCH (08:19)
[2020-06-14 09:06] LABS: African American GFR (CKD) 135.9 (60.0-200.0); Anion Gap 7.2 mmol/L (4.00-12.00); Calcium 9.4 mg/dL (8.7-10.3); Carbon Dioxide 25.8 mmol/L (21.6-31.8); Magnesium 1.6 mg/dL (1.5-2.4); Non-African American GFR(CKD) 117.2 (60.0-200.0); Potassium 3.6 mmol/L (3.5-5.5)
[2020-06-14 11:41] LABS: Glucose,Whole Blood 96 mg/dL (75-99)
[2020-06-14 12:04] VITALS: RESP 18
[2020-06-14 17:07] LABS: Glucose,Whole Blood 91 mg/dL (75-99)
[2020-06-14] MEDS: chlordiazePOXIDE 25 MG CAP PO SCH ×2 (17:28→21:46)
--- NOTE | 2020-06-14 17:34 | P.PN ---
Subjective Progress Note Date: 06/14/20 Principal diagnosis: EtOH abuse/withdrawal Suicidal ideation 40-year-old male with history of alcohol abuse presents to emergency Department with a chief complaint of alcohol withdrawal. Patient reports he typically drinks about half a gallon of vodka per day. States his been ongoing for the past year since the pandemic again. Patient reports he lost a job and has turned to alcohol. Patient reports the last time he drank was 12 PM so it has been about 8 hours since his last alcohol drink. Patient reports now he has developed tremors, diaphoretic, increased anxiety nausea, vomiting but no diarrhea. He denies any chest pain or shortness of breath. Patient states he wants to go to [facility] for rehab on Monday but needs some help until then. He's been also expresses suicidal thoughts due to increased drinking. He has a plan to do it with an opiate overdose. CBC reveals mild leukocytosis of 11.2 K likely reactive to the vomiting. CMP reveals hyperglycemia of 248. Anion gap of 17. UA also showed glucosuria along with +1 ketones. Blood alcohol 275. However, patient states that he is not diabetic. He also reports decreased food intake over the last few days and has been getting his caloric intake from alcohol. Drug screen positive for marijuana only. Patient will be admitted medically for alcohol intoxication with a psychiatric consult. 06/14/2020 Patient is seen and evaluated at sitter at bedside; discuss with nursing staff; patient has started going through withdrawals requiting frequent doses of Ativan Vital signs are reviewed temperature of 98.6, pulse 85, respiration 18 and blood pressure 136/87 Labs are reviewed and are stable We will continue with CIWA protocol with Ativan; patient was placed on Librium 10 mg 4 times a day which will be titrated up to 25 mg by mouth; continue with IV hydration with banana bag; site to see patient regarding suicidal ideation Objective - Vital Signs Vital signs: Vital Signs Temp 98.6 F 06/14/20 11:37 Pulse 85 06/14/20 11:37 Resp 18 06/14/20 11:37 BP 136/87 06/14/20 11:37 Pulse Ox 99 06/14/20 11:37 Intake & Output 06/13/20 06/14/20 06/14/20 18:59 06:59 18:59 Intake Total 2520 Balance 2520 Intake: Intake, IV Titration 1200 Amount Sodium Chloride 0.9% 1, 1200 000 ml @ 100 mls/hr IV . BY DURATION GEOVANNA Rx#: [id number] Oral 1320 Other: Voiding Method Toilet # Voids 2 1 - Exam PHYSICAL EXAMINATION: GENERAL: The patient is alert and oriented x3, not in any acute distress. Well developed, well nourished. HEENT: Pupils are round and equally reacting to light. EOMI. No scleral icterus. No conjunctival pallor. Normocephalic, atraumatic. No pharyngeal erythema. No thyromegaly. CARDIOVASCULAR: S1 and S2 present. No murmurs, rubs, or gallops. PULMONARY: Chest is clear to auscultation, no wheezing or crackles. ABDOMEN: Soft, nontender, nondistended, normoactive bowel sounds. No palpable organomegaly. MUSCULOSKELETAL: No joint swelling or deformity. EXTREMITIES: No cyanosis, clubbing, or pedal edema. NEUROLOGICAL: Gross neurological examination did not reveal any focal deficits. SKIN: No rashes. - Labs CBC & Chem 7: 06/14/20 05:04 06/14/20 05:04 Labs: Abnormal Lab Results - Last 24 Hours (Table) 06/13/20 06/14/20 06/14/20 Range/Units 17:11 00:07 07:03 POC Glucose (mg/dL) 128 H 104 H 116 H (75-99) mg/dL Assessment and Plan Assessment: 1. EtOH intoxication/withdrawal - We will place patient on banana bag and CIWA protocol with Ativan; schedule Librium; consult HUMAN RESOURCES TALENT MANAGER - Seizure precautions 2. Suicidal ideation; psych is consulted and recommendations are pending 3. Hyperglycemia; patient doesn't have any history of diabetes; we will monitor Accu-Cheks every before meals and at bedtime with insulin sliding scale; final recommendations at time of discharge 4. Mild leukocytosis; possibly stress-induced; no signs of infection 5. Psoriasis; we will continue with meloxicam 15 mg daily; patient takes Humira at home; we will hold off while in hospital 6. Depression/anxiety/insomnia; continue with BuSpar, Paxil and trazodone DVT prophylaxis; SCDs CODE STATUS; full code
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
[2020-06-14] MEDS: ARIPiprazole 5 MG TAB PO SCH ×2 (19:07→19:19)
[2020-06-14 20:30] LABS: Glucose,Whole Blood 97 mg/dL (75-99)
[2020-06-14 20:48] VITALS: TEMP 98.5
[2020-06-14] MEDS: traZODone HCL 100 MG TAB PO SCH (21:02)
[2020-06-15] MEDS: LORazepam 2 MG/ML INJ IV PRN (04:32)
[2020-06-15 06:04] VITALS: BP 114/74; PULSE 73
[2020-06-15 07:14] LABS: Glucose,Whole Blood 108 mg/dL (75-99)
[2020-06-15] MEDS: MELOXICAM 7.5 MG TAB PO SCH (09:28)
[2020-06-15] MEDS: ARIPiprazole 5 MG TAB PO SCH (09:28)
[2020-06-15] MEDS: busPIRone HCl 5 MG TAB PO SCH (09:29)
[2020-06-15] MEDS: chlordiazePOXIDE 25 MG CAP PO SCH (09:29)
[2020-06-15] MEDS: THIAMINE 100 MG TAB PO SCH (09:29)
[2020-06-15] MEDS: PARoxetine 10 MG TAB PO SCH (09:30)
--- NOTE | 2020-06-15 11:44 | DS ---
DISCHARGE SUMMARY FINAL DIAGNOSES: 1. Acute alcohol intoxication withdrawal. 2. Acute delirium tremens. 3. Suicidal ideations, Psychiatry cleared. 4. Hyperglycemia. 5. Mild leukocytosis. 6. Psoriasis. 7. Depression, anxiety, insomnia. DISCHARGE DISPOSITION: The patient will be discharged in stable condition with guarded prognosis. HISTORY OF PRESENT ILLNESS: This 40-year-old gentleman with a past medical history of multiple medical problems being followed by Dr. Valerio in the outpatient setting was admitted with alcohol intoxication as well as delirium tremens, treated symptomatically. Psychiatry saw the patient. Medication adjusted. The patient improved significantly. Rehab is being planned. The patient is making arrangements to check into a rehab at this time. On exam, vitals are stable. CARDIOVASCULAR: S1, S2 muffled. ABDOMEN: Soft. NERVOUS SYSTEM: No focal deficits. No tremors. DISCHARGE ADVICE: 1. Diet is cardiac. 2. Activity limited until followup. 3. No EtOH. 4. Follow up with Dr. Valerio in 2-3 days. 5. Follow up with Psych as recommended. Medications are: 1. BuSpar 5 mg p.o. b.i.d. 2. Claritin 10 mg daily. 3. Desyrel 100 mg at bedtime. 4. Humira as before. 5. Meloxicam 15 mg daily. 6. Paxil 30 mg p.o. daily. 7. Abilify 2.5 mg daily. 8. Ativan 1 mg t.i.d. p.r.n. 9. Folic acid 1 mg daily. 10.Librium 25 mg p.o. q.i.d. 11.Motrin 400 mg q.6 p.r.n. 12.Multivitamin 1 p.o. daily. 13.Thiamine 100 mg p.o. daily. Abilify was started by Psychiatry to be followed up in the outpatient setting with Psychiatry, recommended to f/u. MMASIAL / LOUISEN: [id number] / MTDD
== END 2020-06-15 11:33 | disposition home or self-care (01) | DRG 897 ==
LOC: EC 18:38 → 5NMEDONC 21:01 → OBSVTOIN 06-13 22:44
PROVIDERS: ADMIT Internal Medicine; ATTEND Internal Medicine
DX: F10.229 Alcohol dependence with intoxication, unspecified (principal); R45.851 Suicidal ideations; D72.829 Elevated white blood cell count, unspecified; F10.231 Alcohol dependence with withdrawal delirium; F17.290 Nicotine dependence, other tobacco product, uncomplicated; F31.9 Bipolar disorder, unspecified; F41.9 Anxiety disorder, unspecified; G40.909 Epilepsy, unspecified, not intractable, without status epilepticus; G47.00 Insomnia, unspecified; L40.9 Psoriasis, unspecified; Y90.8 Blood alcohol level of 240 mg/100 ml or more; Z79.1 Long term (current) use of non-steroidal anti-inflammatories (NSAID); Z79.899 Other long term (current) drug therapy; Z87.442 Personal history of urinary calculi; Z62.810 Personal history of physical and sexual abuse in childhood; R73.9 Hyperglycemia, unspecified; Z20.822 Contact with and (suspected) exposure to COVID-19; Z56.0 Unemployment, unspecified; F11.11 Opioid abuse, in remission; F12.11 Cannabis abuse, in remission
CPT/HCPCS: 36415; 80048; 80053; 80306; 80320; 81001; 83735; 85025; 87635; 93005; 96374; 96375; 99285

== ENCOUNTER 2020-10-06 20:45 | Inpatient (IN) | payer MEDICAID, OTHER ==
[2020-10-06 22:06] LABS: Glucose,Whole Blood 97 mg/dL (75-99)
[2020-10-06 22:26] LABS: Basophils # (A) 0.1 k/uL (0-0.2); Basophils % (A) 1 %; Eosinophils # (A) 0.1 k/uL (0-0.7); Eosinophils % (A) 1 %; HCT 48.5 % (39.0-53.0); HGB 16.5 gm/dL (13.0-17.5); Lymphocytes # (A) 2.7 k/uL (1.0-4.8); Lymphocytes % (A) 26 %; MCH 30.6 pg (25.0-35.0); MCV 89.8 fL (80.0-100.0); Mean Platelet Volume 7.4; Monocytes # (A) 0.5 k/uL (0-1.0); Monocytes % (A) 5 %; Neutrophils # (A) 6.8 k/uL (1.3-7.7); Neutrophils % (A) 65 %; Platelet Count 339 k/uL (150-450); RDW 14.4 % (11.5-15.5); WBC 10.5 k/uL (3.8-10.6)
[2020-10-06 22:36] LABS: ALT 17 U/L (4-49); AST 34 U/L (17-59); African American GFR (CKD) >90 (>60 ml/min/1.73 sqM); Albumin 4.5 g/dL (3.5-5.0); Alkaline Phosphatase 83 U/L (38-126); Anion Gap 13 mmol/L; Blood Urea Nitrogen 11 mg/dL (9-20); Calcium 9.3 mg/dL (8.4-10.2); Carbon Dioxide 21 mmol/L (22-30); Chloride 105 mmol/L (98-107); Glucose 95 mg/dL (74-99); Lipase 300 U/L (23-300); Magnesium 1.7 mg/dL (1.6-2.3); Non-African American GFR(CKD) >90 (>60 ml/min/1.73 sqM); Potassium 4.6 mmol/L (3.5-5.1); Sodium 139 mmol/L (137-145); Total Bilirubin 0.4 mg/dL (0.2-1.3); Total Protein 6.9 g/dL (6.3-8.2)
[2020-10-06 22:38] LABS: Alcohol 237 mg/dL
[2020-10-06] MEDS ORDERED: NICOTINE 21MG/24HR PATCH TRANSDERM STA (22:42)
--- NOTE | 2020-10-06 23:40 | ED ---
Alcohol HPI - General Source: patient Mode of arrival: ambulatory Limitations: no limitations <Kumar Milton - Last Filed: 10/07/20 01:54> <Maciej Strickland - Last Filed: 10/07/20 21:31> - General Chief Complaint: Alcohol Stated Complaint: Alcohol Detox Time Seen by Provider: 10/06/20 21:31 - History of Present Illness Initial Comments: 40-year-old male with history of alcohol abuse presents to emergency room with a chief complaint of alcohol intoxication. Patient reports he was in rehab but then relapsed. States he has been drinking about 1 gallon of vodka per day. Patient reports she is depressed and is attempting to his problems with any alcohol intake. Patient reports that he seeking help. States if he is not drinking he feels suicidal but does not have a plan. Denies any homicidal thou ghts or ideations. Denies any other complaints at this time. States he also stopped taking his Paxil (Kumar Milton) - Related Data Home Medications Medication Instructions Recorded Confirmed Adalimumab [Humira(Cf) Pen] 40 mg SQ Q14D 11/03/19 10/07/20 PARoxetine HCL [Paxil] 30 mg PO DAILY 11/03/19 10/07/20 traZODone HCL [Desyrel] 100 mg PO HS 11/03/19 10/07/20 Loratadine [Claritin] 10 mg PO DAILY PRN 06/12/20 10/07/20 Meloxicam 15 mg PO DAILY 06/12/20 10/07/20 Sildenafil Citrate 50 mg PO DAILY PRN 10/06/20 10/07/20 busPIRone HCL [Buspar] 7.5 mg PO TID PRN 10/06/20 10/07/20 tiZANidine HCL 4 mg PO HS 10/06/20 10/07/20 Previous Rx's Medication Instructions Recorded ARIPiprazole [Abilify] 2.5 mg PO DAILY #30 tab 06/15/20 Folic Acid 1 mg PO DAILY #30 tablet 06/15/20 Ibuprofen [Motrin] 400 mg PO Q6HR PRN tab 06/15/20 Multivitamins, Thera [Multivitamin] 1 tab PO DAILY #30 tablet 06/15/20 Thiamine [Vitamin B-1] 100 mg PO DAILY #30 tablet 06/15/20 Allergies Allergy/AdvReac Type Severity Reaction Status Date / Time No Known Allergies Allergy Verified 10/07/20 19:51 Review of Systems ROS Other: All systems not noted in ROS Statement are negative. <Kumar Milton - Last Filed: 10/07/20 01:54> ROS Other: All systems not noted in ROS Statement are negative. <Maciej Strickland - Last Filed: 10/07/20 21:31> ROS Statement: Those systems with pertinent positive or pertinent negative responses have been documented in the HPI. Past Medical History Past Medical History: Seizure Disorder Additional Past Medical History / Comment(s): kidney stones, psorasis, hx alcoholism, History of Any Multi-Drug Resistant Organisms: None Reported Additional Past Surgical History / Comment(s): oral surgery, Past Psychological History: Anxiety, Bipolar Smoking Status: Current every day smoker, Vaper Past Alcohol Use History: Abuse, Daily, Heavy Past Drug Use History: Marijuana, Opiates <Kumar Milton - Last Filed: 10/07/20 01:54> General Exam Limitations: no limitations General appearance: alert, in no apparent distress, anxious Head exam: Present: atraumatic, normocephalic, normal inspection Eye exam: Present: normal appearance, PERRL, EOMI Pupils: Present: normal accommodation ENT exam: Present: normal exam, normal oropharynx Neck exam: Present: normal inspection, full ROM. Absent: tenderness Respiratory exam: Present: normal lung sounds bilaterally. Absent: respiratory distress, wheezes Cardiovascular Exam: Present: regular rate, normal rhythm, normal heart sounds. Absent: systolic murmur Extremities exam: Present: normal inspection, full ROM. Absent: tenderness Back exam: Present: normal inspection, full ROM. Absent: tenderness Neurological exam: Present: alert, oriented X3 Psychiatric exam: Present: normal affect, normal mood Skin exam: Present: warm, dry, intact, normal color <Kumar Milton - Last Filed: 10/07/20 01:54> Course <Maciej Strickland - Last Filed: 10/07/20 21:31> Vital Signs 10/06/20 10/07/20 10/07/20 21:22 06:17 07:10 Temperature 98.5 F 98.7 F Pulse Rate 105 H 71 Pulse Rate [ 85 Right] Respiratory 18 20 20 Rate Blood Pressure 165/72 132/72 Blood Pressure 147/87 [Right Arm] O2 Sat by Pulse 96 97 Oximetry 10/07/20 10/07/20 08:00 08:03 Temperature 98.5 F Pulse Rate 71 Pulse Rate [ Right] Respiratory 18 18 Rate Blood Pressure 132/72 Blood Pressure [Right Arm] O2 Sat by Pulse 97 Oximetry - Reevaluation(s) Reevaluation #1: 10/07/20 Medical record is reviewed Medically clear for psychiatric evaluation (Maciej Strickland) Medical Decision Making - Lab Data Result diagrams: 10/06/20 22:06 10/06/20 22:06 <Kumar Milton - Last Filed: 10/07/20 01:54> - Lab Data Result diagrams: 10/07/20 12:03 10/07/20 12:03 <Maciej Strickland - Last Filed: 10/07/20 21:31> - Medical Decision Making 40 male to the ER for evaluation with significant alcohol intoxication. Patient presents today was also found to be significantly depressed and suicidal. Patient be transferred for inpatient psychiatric evaluation and treatment (Maciej Strickland) - Lab Data Lab Results 10/06/20 10/06/20 10/06/20 Range/Units 22:05 22:06 22:06 WBC 10.5 (3.8-10.6) k/uL RBC 5.40 (4.30-5.90) m/uL Hgb 16.5 (13.0-17.5) gm/dL Hct 48.5 (39.0-53.0) % MCV 89.8 (80.0-100.0) fL MCH 30.6 (25.0-35.0) pg MCHC 34.0 (31.0-37.0) g/dL RDW 14.4 (11.5-15.5) % Plt Count 339 (150-450) k/uL MPV 7.4 Neutrophils % 65 % Lymphocytes % 26 % Monocytes % 5 % Eosinophils % 1 % Basophils % 1 % Neutrophils # 6.8 (1.3-7.7) k/uL Lymphocytes # 2.7 (1.0-4.8) k/uL Monocytes # 0.5 (0-1.0) k/uL Eosinophils # 0.1 (0-0.7) k/uL Basophils # 0.1 (0-0.2) k/uL Sodium 139 (137-145) mmol/L Potassium 4.6 (3.5-5.1) mmol/L Chloride 105 (98-107) mmol/L Carbon Dioxide 21 L (22-30) mmol/L Anion Gap 13 mmol/L BUN 11 (9-20) mg/dL Creatinine 0.51 L (0.66-1.25) mg/dL Est GFR (CKD-EPI)AfAm >90 (>60 ml/min/1.73 sqM) Est GFR (CKD-EPI)NonAf >90 (>60 ml/min/1.73 sqM) Glucose 95 (74-99) mg/dL POC Glucose (mg/dL) 97 (75-99) mg/dL POC Glu Drop Count Associate ID Brigida Soliz Calcium 9.3 (8.4-10.2) mg/dL Magnesium 1.7 (1.6-2.3) mg/dL Total Bilirubin 0.4 (0.2-1.3) mg/dL AST 34 (17-59) U/L ALT 17 (4-49) U/L Alkaline Phosphatase 83 (38-126) U/L Total Protein 6.9 (6.3-8.2) g/dL Albumin 4.5 (3.5-5.0) g/dL Lipase 300 (23-300) U/L Urine Opiates Screen (NotDetected) Ur Oxycodone Screen (NotDetected) Urine Methadone Screen (NotDetected) Ur Propoxyphene Screen (NotDetected) Ur Barbiturates Screen (NotDetected) U Tricyclic Antidepress (NotDetected) Ur Phencyclidine Scrn (NotDetected) Ur Amphetamines Screen (NotDetected) U Methamphetamines Scrn (NotDetected) U Benzodiazepines Scrn (NotDetected) Urine Cocaine Screen (NotDetected) U Marijuana (THC) Screen (NotDetected) Serum Alcohol 237 H* mg/dL 10/06/20 Range/Units 22:06 WBC (3.8-10.6) k/uL RBC (4.30-5.90) m/uL Hgb (13.0-17.5) gm/dL Hct (39.0-53.0) % MCV (80.0-100.0) fL MCH (25.0-35.0) pg MCHC (31.0-37.0) g/dL RDW (11.5-15.5) % Plt Count (150-450) k/uL MPV Neutrophils % % Lymphocytes % % Monocytes % % Eosinophils % % Basophils % % Neutrophils # (1.3-7.7) k/uL Lymphocytes # (1.0-4.8) k/uL Monocytes # (0-1.0) k/uL Eosinophils # (0-0.7) k/uL Basophils # (0-0.2) k/uL Sodium (137-145) mmol/L Potassium (3.5-5.1) mmol/L Chloride (98-107) mmol/L Carbon Dioxide (22-30) mmol/L Anion Gap mmol/L BUN (9-20) mg/dL Creatinine (0.66-1.25) mg/dL Est GFR (CKD-EPI)AfAm (>60 ml/min/1.73 sqM) Est GFR (CKD-EPI)NonAf (>60 ml/min/1.73 sqM) Glucose (74-99) mg/dL POC Glucose (mg/dL) (75-99) mg/dL POC Glu Drop Count Associate ID Calcium (8.4-10.2) mg/dL Magnesium (1.6-2.3) mg/dL Total Bilirubin (0.2-1.3) mg/dL AST (17-59) U/L ALT (4-49) U/L Alkaline Phosphatase (38-126) U/L Total Protein (6.3-8.2) g/dL Albumin (3.5-5.0) g/dL Lipase (23-300) U/L Urine Opiates Screen Not Detected (NotDetected) Ur Oxycodone Screen Not Detected (NotDetected) Urine Methadone Screen Not Detected (NotDetected) Ur Propoxyphene Screen Not Detected (NotDetected) Ur Barbiturates Screen Not Detected (NotDetected) U Tricyclic Antidepress Not Detected (NotDetected) Ur Phencyclidine Scrn Not Detected (NotDetected) Ur Amphetamines Screen Not Detected (NotDetected) U Methamphetamines Scrn Not Detected (NotDetected) U Benzodiazepines Scrn Not Detected (NotDetected) Urine Cocaine Screen Not Detected (NotDetected) U Marijuana (THC) Screen Detected H (NotDetected) Serum Alcohol mg/dL - EKG Data EKG Comments: Sinus rhythm without acute ischemic changes Atripla rate 90, HI 132, QRS 86, QTC 445. (Kumar Milton) Disposition <Kumar Milton - Last Filed: 10/07/20 01:54> Is patient prescribed a controlled substance at d/c from ED?: No <Maciej Strickland - Last Filed: 10/07/20 21:31> Clinical Impression: Alcohol intoxication, Depression, Suicidal ideation Disposition: ADMITTED IP TO THIS HOSP Condition: Fair
[2020-10-07 00:10] LABS: Amphetamine Screen,Urine Not Detected (NotDetected); Barbiturate Screen,Urine Not Detected (NotDetected); Benzodiazepines Screen,Urine Not Detected (NotDetected); Cocaine Screen,Urine Not Detected (NotDetected); Methadone Screen, Urine Not Detected (NotDetected); Opiate Screen,Urine Not Detected (NotDetected); Oxycodone Screen, Urine Not Detected (NotDetected); Phencyclidine Screen,Urine Not Detected (NotDetected); Tricyclic Antidepressant,Urine Not Detected (NotDetected); Urn Cannabinoid Scrn Detected (NotDetected)
[2020-10-07] MEDS ORDERED: LORazepam 2 MG/ML INJ IV STA (06:23)
[2020-10-07] MEDS ORDERED: MAG HYDROX/AL HYDROX/SIMETH 30 ML CUP PO PRN (07:11)
[2020-10-07] MEDS ORDERED: ACETAMINOPHEN TAB 325 MG TAB PO PRN (07:11)
[2020-10-07] MEDS ORDERED: LORazepam 1 MG TAB PO PRN ×3 (07:11→10:39)
[2020-10-07] MEDS ORDERED: MAGNESIUM HYDROXIDE 2,400 MG/10 ML CUP PO PRN (07:11)
[2020-10-07] MEDS ORDERED: LORazepam 2 MG/ML INJ IM PRN (07:14)
[2020-10-07] MEDS ORDERED: HALOPERIDOL LACTATE 5 MG/ML 1 ML VIAL IM PRN (07:15)
[2020-10-07] MEDS ORDERED: NICOTINE 14MG/24HR PATCH TRANSDERM SCH (09:00)
[2020-10-07] MEDS ORDERED: traZODone HCL 50 MG TAB PO PRN (10:42)
[2020-10-07] MEDS ORDERED: diazePAM 5 MG TAB PO SCH ×2 (10:45→16:00)
[2020-10-07 10:52] LABS: Glucose,Whole Blood 103 mg/dL (75-99)
--- NOTE | 2020-10-07 11:08 | P.HP ---
Psychiatric H&P - . H&P Date: 10/07/20 History & Physical: Allergies Allergy/AdvReac Type Severity Reaction Status Date / Time No Known Allergies Allergy Verified 10/07/20 08:52 Vital Signs Temp 98.5 F 10/07/20 08:03 Pulse 71 10/07/20 08:03 Resp 18 10/07/20 08:03 BP 132/72 10/07/20 08:03 Pulse Ox 97 10/07/20 08:03 Intake & Output 10/06/20 10/07/20 10/07/20 18:59 06:59 18:59 Weight 72.575 kg 62.6 kg Laboratory Last Values WBC 10.5 k/uL (3.8-10.6) 10/06/20 22:06 RBC 5.40 m/uL (4.30-5.90) 10/06/20 22:06 Hgb 16.5 gm/dL (13.0-17.5) 10/06/20 22:06 Hct 48.5 % (39.0-53.0) 10/06/20 22:06 MCV 89.8 fL (80.0-100.0) 10/06/20 22:06 MCH 30.6 pg (25.0-35.0) 10/06/20 22:06 MCHC 34.0 g/dL (31.0-37.0) 10/06/20 22:06 RDW 14.4 % (11.5-15.5) 10/06/20 22:06 Plt Count 339 k/uL (150-450) 10/06/20 22:06 MPV 7.4 10/06/20 22:06 Neutrophils % 65 % 10/06/20 22:06 Lymphocytes % 26 % 10/06/20 22:06 Monocytes % 5 % 10/06/20 22:06 Eosinophils % 1 % 10/06/20 22:06 Basophils % 1 % 10/06/20 22:06 Neutrophils # 6.8 k/uL (1.3-7.7) 10/06/20 22:06 Lymphocytes # 2.7 k/uL (1.0-4.8) 10/06/20 22:06 Monocytes # 0.5 k/uL (0-1.0) 10/06/20 22:06 Eosinophils # 0.1 k/uL (0-0.7) 10/06/20 22:06 Basophils # 0.1 k/uL (0-0.2) 10/06/20 22:06 Sodium 139 mmol/L (137-145) 10/06/20 22:06 Potassium 4.6 mmol/L (3.5-5.1) 10/06/20 22:06 Chloride 105 mmol/L (98-107) 10/06/20 22:06 Carbon Dioxide 21 mmol/L (22-30) L 10/06/20 22:06 Anion Gap 13 mmol/L 10/06/20 22:06 BUN 11 mg/dL (9-20) 10/06/20 22:06 Creatinine 0.51 mg/dL (0.66-1.25) L 10/06/20 22:06 Est GFR (CKD-EPI)AfAm >90 (>60 ml/min/1.73 sqM) 10/06/20 22:06 Est GFR (CKD-EPI)NonAf >90 (>60 ml/min/1.73 sqM) 10/06/20 22:06 Glucose 95 mg/dL (74-99) 10/06/20 22:06 POC Glucose (mg/dL) 97 mg/dL (75-99) 10/06/20 22:05 POC Glu Ink Grinder ID Brigida Soliz 10/06/20 22:05 Calcium 9.3 mg/dL (8.4-10.2) 10/06/20 22:06 Magnesium 1.7 mg/dL (1.6-2.3) 10/06/20 22:06 Total Bilirubin 0.4 mg/dL (0.2-1.3) 10/06/20 22:06 AST 34 U/L (17-59) 10/06/20 22:06 ALT 17 U/L (4-49) 10/06/20 22:06 Alkaline Phosphatase 83 U/L (38-126) 10/06/20 22:06 Total Protein 6.9 g/dL (6.3-8.2) 10/06/20 22:06 Albumin 4.5 g/dL (3.5-5.0) 10/06/20 22:06 Lipase 300 U/L (23-300) 10/06/20 22:06 Urine Opiates Screen Not Detected (NotDetected) 10/06/20 22:06 Ur Oxycodone Screen Not Detected (NotDetected) 10/06/20 22:06 Urine Methadone Screen Not Detected (NotDetected) 10/06/20 22:06 Ur Propoxyphene Screen Not Detected (NotDetected) 10/06/20 22:06 Ur Barbiturates Screen Not Detected (NotDetected) 10/06/20 22:06 U Tricyclic Antidepress Not Detected (NotDetected) 10/06/20 22:06 Ur Phencyclidine Scrn Not Detected (NotDetected) 10/06/20 22:06 Ur Amphetamines Screen Not Detected (NotDetected) 10/06/20 22:06 U Methamphetamines Scrn Not Detected (NotDetected) 10/06/20 22:06 U Benzodiazepines Scrn Not Detected (NotDetected) 10/06/20 22:06 Urine Cocaine Screen Not Detected (NotDetected) 10/06/20 22:06 U Marijuana (THC) Screen Detected (NotDetected) H 10/06/20 22:06 Serum Alcohol 237 mg/dL H* 10/06/20 22:06 10/07/20 10:18 IDENTIFYING DATA: Patient is a 40 yo male with hx of alcohol use disorder and depression Who currently lives in a house with a roommate has no kids and works for [employer] HPI: Patient presented to the hospital initially to the ER with etoh intoxication with a BAL of 237. He had claimed in the ER that he Was in rehab and then recently relapsed on alcohol use. He claims that he has been drinking approximately 1 gallon of vodka per day. Patient has reported depression and ongoing suicidal ideation. He also had reported to have stopped taking his psychiatric medications including Paxil. Patient's UDS was positive for THC. Patient was seen to today by entry writer and agreeable to speak with entry writer in The office today. Patient appears to be sweating and was covering himself with a blanket and claims that he is feeling tremulous at this time and feeling as though he has "bodyaches". He described these as the alcohol withdrawal that he is having and states that he has had severe withdrawal symptoms in the past including a withdrawal seizure several years ago. He denies any history of DTs. He claims that his sleep has been poor and he has been feeling depressed. He states that he relapsed back on alcohol approximately 5 weeks ago. He states that his last drink was 24 hours ago. He states that he stopped taking his psychiatric meds because "I didn't think I needed them anymore". He claims that he is not happy with his life as to his financial situation and his career. He claims that he is willing to go to rehab upon discharge. He states that his mood is "not good" and is describing depression and anxiety at this time. Patient denies any current suicidal or homicidal ideations intent or plan. At this time patient denies any auditory or visual hallucinations. Patient denies any flight of ideas racing thoughts and increased in goal directed behavior. Patient admits to using Alcohol greater than a fifth of vodka a day for the past 5-6 weeks. He states that he has been to rehab in the past. He claims that he smokes marijuana occasionally and smokes cigarettes. PAST PSYCHIATRIC HISTORY: Patient states that [He has a history of depression and anxiety and alcohol use]. Patient was previously on BuSpar, Paxil and trazodone and was taking Abilify in the past. [Patient denies any previous psychiatric hospitalizations.] [Patient denies any psychiatric outpatient follow-up.] [Patient denies any history of suicide attempts in the past.] Past Medical History: Seizure Disorder Additional Past Medical History / Comment(s): kidney stones, psorasis, hx alcoholism ALLERGIES: as per EMR CHEMICAL DEPENDENCY HISTORY: as per HPI FAMILY PSYCHIATRIC/SUBSTANCE USE HISTORY: States that his mother has some form of mental illness. SOCIAL HISTORY: Patient was born and raised in [facility] and states that he left his mother 13 years old and has been "on my own since". He states that he dropped out of high school [employer] and finish his bachelor's in [employer] arts at the [facility] [employer] [facility]. He states that he is currently working another degree at this time. He denies ever going to senior living or snf. He states that he did not have any kids is unmarried and lives in a house with a roommate. he claims he currently works for [employer] MENTAL STATUS EXAM: General Appearance: Patient appears to be [Tremulous, sweating,] stated age is alert, Attempts to cooperate. Patient appears to have [poor] hygiene and groomi ng. Behavior: Patient is seated without any agitated behavior. Attempts to cooperate Speech: Patient's speech is [fluent and nonpressured.] Mood/Affect: Patient reports their mood is [depressed and anxious], affect is congruent Suicidality/Homicidality: Patient denies having any homicidal ideation intent or plan. Denies any suicidal ideations intent or plan Perceptions: Patient denies any visual hallucinations [and denies any auditory hallucinations] Though content/process: [There is no evidence of any delusional thought content and thought process is linear and goal-directed.] Memory and concentration: AOX3, grossly intact for the purposes of this session. Can spell "WORLD" backwards Judgment and insight: [poor] STRENGTHS/WEAKNESSES: strength is that patient is [resilient]. Weakness is that patient [has poor judgment and is impulsive] INTELLECT: [average] IMPRESSIONS: Major depressive disorder, recurrent, without psychotic features Alcohol use disorder, currently in withdrawal Cannabis use disorder Nicotine dependence PLAN: -Patient is admitted under voluntary status to MHU for stabilization of psychiatric symptoms and safety. Patient has signed [adult voluntary form and] is placed in patient's chart. -Medications : Will start patient on Valium 10 mg every 8 hours for alcohol withdrawal, hold for sedation. Trazodone 50 mg daily at bedtime when necessary for insomnia/mood. -Ativan and Haldol PRN for agitation/aggression -Started thiamine, MVM for etoh use -CIWA protocol with Ativan PRN for ETOH withdrawal, monitor closely every 4hrs. -Patient was counselled on substance abuse and desired to cut back on use. He wants to go back to rehab upon discharge. -Patient was informed of the risks, benefits and side effects of the medication and patient verbally consented to taking the medications. Patient signed med consent form and was placed in chart. -Internal Medicine consult to perform medical evaluation and physical. -NRT - nicotine patch -SW on board for discharge planning. Encourage patient to participate in groups to work on coping skills. SW to give patient access line number to call for rehab 10/07/20 10:59 10/07/20 11:03
[2020-10-07] MEDS ORDERED: LORATADINE 10 MG TAB PO PRN (11:10)
[2020-10-07] MEDS ORDERED: busPIRone HCl 5 MG TAB PO PRN (11:10)
[2020-10-07] MEDS ORDERED: THIAMINE 100 MG TAB PO SCH (11:15)
[2020-10-07] MEDS ORDERED: MULTIVITAMINS, THERA 1 EACH TAB PO SCH (11:15)
[2020-10-07] MEDS ORDERED: FOLIC ACID 1 MG TAB PO SCH (11:15)
[2020-10-07 12:08] VITALS: RESP 16
[2020-10-07 12:27] LABS: Basophils # (A) 0.1 k/uL (0-0.2); Basophils % (A) 1 %; Eosinophils % (A) 1 %; HCT 49.4 % (39.0-53.0); HGB 16.2 gm/dL (13.0-17.5); Lymphocytes # (A) 1.4 k/uL (1.0-4.8); Lymphocytes % (A) 17 %; MCH 30.1 pg (25.0-35.0); MCHC 32.8 g/dL (31.0-37.0); MCV 91.7 fL (80.0-100.0); Mean Platelet Volume 7.4; Monocytes # (A) 0.6 k/uL (0-1.0); Monocytes % (A) 7 %; Neutrophils # (A) 5.9 k/uL (1.3-7.7); Neutrophils % (A) 72 %; Platelet Count 318 k/uL (150-450); RBC 5.38 m/uL (4.30-5.90); RDW 14.6 % (11.5-15.5); WBC 8.2 k/uL (3.8-10.6)
[2020-10-07 12:44] LABS: ALT 19 U/L (4-49); AST 32 U/L (17-59); African American GFR (CKD) >90 (>60 ml/min/1.73 sqM); Albumin 4.5 g/dL (3.5-5.0); Alkaline Phosphatase 88 U/L (38-126); Anion Gap 9 mmol/L; Blood Urea Nitrogen 14 mg/dL (9-20); Calcium 10.3 mg/dL (8.4-10.2); Carbon Dioxide 27 mmol/L (22-30); Chloride 101 mmol/L (98-107); Glucose 96 mg/dL (74-99); Non-African American GFR(CKD) >90 (>60 ml/min/1.73 sqM); Sodium 137 mmol/L (137-145); Total Protein 6.8 g/dL (6.3-8.2)
[2020-10-07] MEDS ORDERED: PANTOPRAZOLE 40 MG TABLET PO SCH (13:15)
[2020-10-07 14:30] VITALS: BP 132/89; PULSE 91; TEMP 98
[2020-10-07] MEDS ORDERED: IPRATROPIUM-ALBUTEROL 3 ML NEB INHALATION PRN (16:16)
--- NOTE | 2020-10-07 16:22 | P.CONS ---
History of Present Illness - Reason for Consult Alcohol withdrawal - History of Present Illness Patient was admitted to psychiatric floor because of suicidal ideation depression. Patient the drinks about half a gallon of hard liquor every day. Patient has been drinking everyday patient had history of a delirium tremens with seizures in the past. I was called to evaluate the patient has patient has high CIWA score. As told patient has high CIWA score of around 20 when I valid the patient patient the was not insulin and withdrawals. Although patient will benefit from transfer to medical floor as his withdrawals are expected to get worse. Patient last drink was yesterday patient came in with the blood alcohol level of 237. Patient did go to alcohol rehabitation program but relapsed. Patient denied any fever chills patient any cough. Patient does smoke. He smokes about 1 pack per day use to smoke 2 packs per day. Patient has wheezing on exam along with cough and greenish sputum production. REVIEW OF SYSTEMS: CONSTITUTIONAL: No fever, no malaise, no fatigue. HEENT: No recent visual problems or hearing problems. Denied any sore throat. CARDIOVASCULAR: No chest pain, orthopnea, PND, no palpitations, no syncope. PULMONARY: No shortness of breath, no cough, no hemoptysis. GASTROINTESTINAL: No diarrhea, no nausea, no vomiting, no abdominal pain. NEUROLOGICAL: No headaches, no weakness, no numbness. HEMATOLOGICAL: Denies any bleeding or petechiae. GENITOURINARY: Denies any burning micturition, frequency, or urgency. MUSCULOSKELETAL/RHEUMATOLOGICAL: Denies any joint pain, swelling, or any muscle pain. ENDOCRINE: Denies any polyuria or polydipsia. The rest of the 14-point review of systems is negative. PHYSICAL EXAMINATION: GENERAL: The patient is alert and oriented x3, not in any acute distress. Well developed, well nourished. HEENT: Pupils are round and equally reacting to light. EOMI. No scleral icterus. No conjunctival pallor. Normocephalic, atraumatic. No pharyngeal erythema. No thyromegaly. CARDIOVASCULAR: S1 and S2 present. No murmurs, rubs, or gallops. PULMONARY: Significant expiratory wheezing on exam ABDOMEN: Soft, nontender, nondistended, normoactive bowel sounds. No palpable organomegaly. MUSCULOSKELETAL: No joint swelling or deformity. EXTREMITIES: No cyanosis, clubbing, or pedal edema. NEUROLOGICAL: Gross neurological examination did not reveal any focal deficits. SKIN: No rashes. Assessment and plan -Alcohol abuse, possibly of alcohol withdrawal patient will transfer to medical floor, started on Librium and Ativan, patient will be on alcohol withdrawal precautions. Counseling regarding alcohol use was provided. -COPD with acute exacerbation patient was started on inhalational treatments and steroids if his wheezing doesn't improve with more patient was started on systemic steroids at the time -Marijuana use: Counseling was provided -Nicotine abuse -History of psoriasis for which patient is on oral Dilantin body which will be continued patient is also on meloxicam for arthritis.-DVT prophylaxis: Past Medical History Past Medical History: Seizure Disorder Additional Past Medical History / Comment(s): kidney stones, psorasis, hx alcoholism, History of Any Multi-Drug Resistant Organisms: None Reported Additional Past Surgical History / Comment(s): oral surgery, Past Anesthesia/Blood Transfusion Reactions: No Reported Reaction Past Psychological History: Anxiety, Bipolar Smoking Status: Current every day smoker, Vaper Past Alcohol Use History: Abuse, Daily, Heavy Past Drug Use History: Marijuana, Opiates Medications and Allergies Home Medications Medication Instructions Recorded Confirmed Type Adalimumab [Humira(Cf) Pen] 40 mg SQ Q14D 11/03/19 10/06/20 History PARoxetine HCL [Paxil] 30 mg PO DAILY 11/03/19 10/06/20 History traZODone HCL [Desyrel] 100 mg PO HS 11/03/19 10/06/20 History Loratadine [Claritin] 10 mg PO DAILY PRN 06/12/20 10/06/20 History Meloxicam 15 mg PO DAILY 06/12/20 10/06/20 History ARIPiprazole [Abilify] 2.5 mg PO DAILY #30 tab 06/15/20 10/06/20 Rx Folic Acid 1 mg PO DAILY #30 tablet 06/15/20 10/06/20 Rx Ibuprofen [Motrin] 400 mg PO Q6HR PRN tab 06/15/20 10/06/20 Rx Multivitamins, Thera [Multivitamin] 1 tab PO DAILY #30 tablet 06/15/20 10/06/20 Rx Thiamine [Vitamin B-1] 100 mg PO DAILY #30 tablet 06/15/20 10/06/20 Rx Sildenafil Citrate 50 mg PO DAILY PRN 10/06/20 10/06/20 History busPIRone HCL [Buspar] 7.5 mg PO TID PRN 10/06/20 10/06/20 History tiZANidine HCL 4 mg PO HS 10/06/20 10/06/20 History Allergies Allergy/AdvReac Type Severity Reaction Status Date / Time No Known Allergies Allergy Verified 10/07/20 08:52 Physical Exam Vitals: Vital Signs Temp Pulse Pulse Resp BP BP Pulse Ox 10/07/20 14:29 98 F 91 16 132/89 99 10/07/20 12:00 97.8 F 79 16 107/64 98 10/07/20 10:50 97.5 F L 102 H 22 132/86 96 10/07/20 08:03 98.5 F 71 18 132/72 97 10/07/20 08:00 18 10/07/20 07:10 98.7 F 85 20 147/87 10/07/20 06:17 71 20 132/72 97 10/06/20 21:22 98.5 F 105 H 18 165/72 96 Intake and Output 10/07/20 10/07/20 10/07/20 06:59 14:59 22:59 Intake Total 860 Balance 860 Intake: Oral 860 Other: Voiding Method Toilet Weight 62.6 kg Results CBC & Chem 7: 10/07/20 12:03 10/07/20 12:03 Labs: Abnormal Lab Results - Last 24 Hours (Table) 10/06/20 10/06/20 10/07/20 Range/Units 22:06 22:06 10:50 Carbon Dioxide 21 L (22-30) mmol/L Creatinine 0.51 L (0.66-1.25) mg/dL POC Glucose (mg/dL) 103 H (75-99) mg/dL Calcium (8.4-10.2) mg/dL TSH (0.465-4.680) mIU/L U Marijuana (THC) Screen Detected H (NotDetected) Serum Alcohol 237 H* mg/dL 10/07/20 Range/Units 12:03 Carbon Dioxide (22-30) mmol/L Creatinine 0.55 L (0.66-1.25) mg/dL POC Glucose (mg/dL) (75-99) mg/dL Calcium 10.3 H (8.4-10.2) mg/dL TSH 0.297 L (0.465-4.680) mIU/L U Marijuana (THC) Screen (NotDetected) Serum Alcohol mg/dL
[2020-10-07] MEDS ORDERED: BUDESONIDE 0.5 MG/2 ML NEBU INHALATION SCH (20:00)
[2020-10-07] MEDS ORDERED: IPRATROPIUM-ALBUTEROL 3 ML NEB INHALATION SCH (20:00)
[2020-10-07] MEDS ORDERED: DOXYCYCLINE 100 MG CAP PO SCH (21:00)
[2020-10-07 21:16] LABS: Hemoglobin A1C 5.6 % (4.0-6.0)
[2020-10-07] MEDS ORDERED: chlordiazePOXIDE 25 MG CAP PO SCH (22:00)
[2020-10-08] MEDS ORDERED: MELOXICAM 7.5 MG TAB PO SCH (09:00)
--- NOTE | 2020-10-08 11:15 | P.DS ---
Providers Date of admission: 10/07/20 07:02 Expected date of discharge: 10/07/20 Attending physician: Daivd Fenton MD Consults: 10/07/20 09:29 Consult Physician Routine Consulting Provider: Viviane Jacques Consult Reason/Comments: history and physical Do you want consulting provider notified?: Already Contacted Primary care physician: Teodoro Barakat - Discharge Diagnosis(es) (1) Major depressive disorder with psychotic features Status: Acute Priority: High (2) Alcohol use disorder Status: Acute Priority: High (3) Cannabis use disorder, mild, abuse Status: Acute Priority: Low (4) Nicotine dependence Status: Acute Priority: Low Hospital Course: Admission HPI: Admission note was completed by [designer/writer] "[Patient is a 40 yo male with hx of alcohol use disorder and depression Who currently lives in a house with a roommate has no kids and works for [employer]. Patient presented to the hospital initially to the ER with etoh intoxication with a BAL of 237. He had claimed in the ER that he Was in rehab and then recently relapsed on alcohol use. He claims that he has been drinking approximately 1 gallon of vodka per day. Patient has reported depression and ongoing suicidal ideation. He also had reported to have stopped taking his psychiatric medications including Paxil. Patient's UDS was positive for THC. Patient was seen to today by designer/writer and agreeable to speak with designer/writer in The office today. Patient appears to be sweating and was covering himself with a blanket and claims that he is feeling tremulous at this time and feeling as though he has "bodyaches". He described these as the alcohol withdrawal that he is having and states that he has had severe withdrawal symptoms in the past including a withdrawal seizure several years ago. He denies any history of DTs. He claims that his sleep has been poor and he has been feeling depressed. He states that he relapsed back on alcohol approximately 5 weeks ago. He states that his last drink was 24 hours ago. He states that he stopped taking his psychiatric meds because "I didn't think I needed them anymore". He claims that he is not happy with his life as to his financial situation and his career. He claims that he is willing to go to rehab upon discharge. He states that his mood is "not good" and is describing depression and anxiety at this time. Patient denies any current suicidal or homicidal ideations intent or plan. At this time patient denies any auditory or visual hallucinations. Patient denies any flight of ideas racing thoughts and increased in goal directed behavior. Patient admits to using Alcohol greater than a fifth of vodka a day for the past 5-6 weeks. He states that he has been to rehab in the past. He claims that he smokes depressed marijuana occasionally and smokes cigarettes.]" Hospital course: Upon admission to the unit patient was initially [depressed, anxious and going through etoh w/ds]. Patient was however [directable and agreeable to commence treatment and signed adult voluntary form]. Patient mainly isolated in his room. Patient was started on Valium 10mg tid for etoh w/d and ciwa with ativan prn with q4hr ciwa monitoring. Patient was also started on trazodone 50mg qhs for insomnia/mood. Patient was also seen by medical team for history and physical exam and due to patients history of severe etoh w/d and possible DTs in the past and history of w/d seizures and scoring high on CIWAs, the decision was made to transfer patient to medical floors for further and closer monitoring/treatment. Mental status exam: please see MSE from writers H&P on 10/07 Impression: major depressive disorder, recurrent, severe without psychotic features alcohol use disorder, currently in withdrawal cannabis use disorder nicotine dependence Plan: -Due to patients severe Etoh w/d sx and history of possible DTs and withdrawal seizures the decision was made to transfer patient to the medical floors for further monitoring and treatment. -continue with either standing Librium or Valium plus ciwa protocol with prn ativan for w/d -please consult psychiatry to follow along with care. Patient Condition at Discharge: Serious Plan - Discharge Summary Discharge Rx Participant: No New Discharge Prescriptions: No Action PARoxetine HCL [Paxil] 30 mg PO DAILY Adalimumab [Humira(Cf) Pen] 40 mg SQ Q14D traZODone HCL [Desyrel] 100 mg PO HS Meloxicam 15 mg PO DAILY tiZANidine HCL 4 mg PO HS Loratadine [Claritin] 10 mg PO DAILY PRN PRN Reason: Allergy Symptoms ARIPiprazole [Abilify] 2.5 mg PO DAILY #30 tab Folic Acid 1 mg PO DAILY #30 tablet Ibuprofen [Motrin] 400 mg PO Q6HR PRN tab PRN Reason: Mild Pain Or Fever > 100.5 Multivitamins, Thera [Multivitamin] 1 tab PO DAILY #30 tablet Thiamine [Vitamin B-1] 100 mg PO DAILY #30 tablet busPIRone HCL [Buspar] 7.5 mg PO TID PRN PRN Reason: Anxiety Sildenafil Citrate 50 mg PO DAILY PRN PRN Reason: E.D. Discharge Medication List Adalimumab [Humira(Cf) Pen] 40 mg SQ Q14D 11/03/19 [History] PARoxetine HCL [Paxil] 30 mg PO DAILY 11/03/19 [History] traZODone HCL [Desyrel] 100 mg PO HS 11/03/19 [History] Loratadine [Claritin] 10 mg PO DAILY PRN 06/12/20 [History] Meloxicam 15 mg PO DAILY 06/12/20 [History] ARIPiprazole [Abilify] 2.5 mg PO DAILY #30 tab 06/15/20 [Rx] Folic Acid 1 mg PO DAILY #30 tablet 06/15/20 [Rx] Ibuprofen [Motrin] 400 mg PO Q6HR PRN tab 06/15/20 [Rx] Multivitamins, Thera [Multivitamin] 1 tab PO DAILY #30 tablet 06/15/20 [Rx] Thiamine [Vitamin B-1] 100 mg PO DAILY #30 tablet 06/15/20 [Rx] Sildenafil Citrate 50 mg PO DAILY PRN 10/06/20 [History] busPIRone HCL [Buspar] 7.5 mg PO TID PRN 10/06/20 [History] tiZANidine HCL 4 mg PO HS 10/06/20 [History] Follow up Appointment(s)/Referral(s): Roshni Valerio MD [Primary Care Provider] - 1-2 days Activity/Diet/Wound Care/Special Instructions: Activity and diet as tolerated. Avoid the use of street drugs and alcohol. Take all medications as prescribed. When you are in need of refills on your medications please contact your medical provider and/or outpatient psychiatrist to have this done. Please go to scheduled outpatient appointment for aftercare treatment. If symptoms return or become worse, call the crisis line at and/or go to the nearest emergency room for evaluation. Discharge Disposition: HOME SELF-CARE
[2020-10-08] MEDS ORDERED: chlordiazePOXIDE 5 MG CAPSULE PO SCH (16:00)
== END 2020-10-07 18:24 | disposition home or self-care (01) | DRG 885 ==
LOC: EC 20:45 → 3MHU 10-07 07:02 → 3SCARD 10-07 13:46
PROVIDERS: ADMIT Psychiatry & Neurology Psychiatry; ATTEND Psychiatry & Neurology Psychiatry
DX: F33.2 Major depressive disorder, recurrent severe without psychotic features (principal); R45.851 Suicidal ideations; J44.1 Chronic obstructive pulmonary disease with (acute) exacerbation; F10.239 Alcohol dependence with withdrawal, unspecified; F10.229 Alcohol dependence with intoxication, unspecified; F12.10 Cannabis abuse, uncomplicated; F41.9 Anxiety disorder, unspecified; L40.9 Psoriasis, unspecified; Y90.7 Blood alcohol level of 200-239 mg/100 ml; M19.90 Unspecified osteoarthritis, unspecified site; G47.00 Insomnia, unspecified; F17.210 Nicotine dependence, cigarettes, uncomplicated; F17.290 Nicotine dependence, other tobacco product, uncomplicated; Z71.6 Tobacco abuse counseling; Z79.1 Long term (current) use of non-steroidal anti-inflammatories (NSAID); Z79.899 Other long term (current) drug therapy; Z86.69 Personal history of other diseases of the nervous system and sense organs; Z87.442 Personal history of urinary calculi
CPT/HCPCS: 36415; 80053; 80306; 80320; 82075; 83036; 83690; 83735; 84439; 84443; 85025; 93005; 96374; 99285

== ENCOUNTER 2020-10-07 13:37 | Inpatient (IN) | payer MEDICAID, OTHER ==
[2020-10-07] MEDS ORDERED: ACETAMINOPHEN TAB 325 MG TAB PO PRN (19:00)
[2020-10-07] MEDS ORDERED: MAGNESIUM HYDROXIDE 2,400 MG/10 ML CUP PO PRN (19:01)
[2020-10-07] MEDS ORDERED: MAG HYDROX/AL HYDROX/SIMETH 30 ML CUP PO PRN (19:01)
[2020-10-07] MEDS ORDERED: LORazepam 2 MG/ML INJ IM PRN (19:02)
[2020-10-07] MEDS ORDERED: LORazepam 1 MG TAB PO PRN ×2 (19:03)
[2020-10-07] MEDS ORDERED: busPIRone HCl 5 MG TAB PO PRN (19:05)
[2020-10-07] MEDS ORDERED: LORATADINE 10 MG TAB PO PRN (19:05)
[2020-10-07] MEDS ORDERED: IPRATROPIUM-ALBUTEROL 3 ML NEB INHALATION PRN (19:06)
[2020-10-07] MEDS ORDERED: HALOPERIDOL LACTATE 5 MG/ML 1 ML VIAL IM PRN (19:09)
[2020-10-07] MEDS ORDERED: traZODone HCL 50 MG TAB PO PRN (19:10)
[2020-10-07] MEDS: LORazepam 2 MG/ML INJ IV PRN ×4 (19:31→22:43)
[2020-10-07] MEDS: IPRATROPIUM-ALBUTEROL 3 ML NEB INHALATION SCH (20:31)
[2020-10-07] MEDS: BUDESONIDE 0.5 MG/2 ML NEBU INHALATION SCH (20:31)
[2020-10-07] MEDS: chlordiazePOXIDE 25 MG CAP PO SCH (20:32)
[2020-10-07] MEDS: DOXYCYCLINE 100 MG CAP PO SCH (20:32)
[2020-10-08] MEDS: LORazepam 2 MG/ML INJ IV PRN ×12 (01:03→22:41)
[2020-10-08] MEDS: PANTOPRAZOLE 40 MG TABLET PO SCH (06:14)
[2020-10-08 08:13] LABS: HCT 46.2 % (39.0-53.0); HGB 15.6 gm/dL (13.0-17.5); MCH 31.1 pg (25.0-35.0); MCHC 33.8 g/dL (31.0-37.0); Platelet Count 264 k/uL (150-450); RBC 5.02 m/uL (4.30-5.90); RDW 14.7 % (11.5-15.5); WBC 7.2 k/uL (3.8-10.6)
[2020-10-08] MEDS: BUDESONIDE 0.5 MG/2 ML NEBU INHALATION SCH ×2 (08:24→20:42)
[2020-10-08] MEDS: IPRATROPIUM-ALBUTEROL 3 ML NEB INHALATION SCH ×4 (08:24→20:42)
[2020-10-08 08:28] LABS: African American GFR (CKD) >90 (>60 ml/min/1.73 sqM); Anion Gap 9 mmol/L; Blood Urea Nitrogen 16 mg/dL (9-20); Calcium 9.5 mg/dL (8.4-10.2); Carbon Dioxide 24 mmol/L (22-30); Chloride 103 mmol/L (98-107); Glucose 91 mg/dL (74-99); Non-African American GFR(CKD) >90 (>60 ml/min/1.73 sqM); Potassium 3.8 mmol/L (3.5-5.1); Sodium 136 mmol/L (137-145)
[2020-10-08] MEDS: MELOXICAM 7.5 MG TAB PO SCH (08:39)
[2020-10-08] MEDS: THIAMINE 100 MG TAB PO SCH (08:40)
[2020-10-08] MEDS: MULTIVITAMINS, THERA 1 EACH TAB PO SCH (08:40)
[2020-10-08] MEDS: FOLIC ACID 1 MG TAB PO SCH (08:40)
[2020-10-08] MEDS: chlordiazePOXIDE 25 MG CAP PO SCH (08:41)
[2020-10-08] MEDS: DOXYCYCLINE 100 MG CAP PO SCH ×2 (08:41→20:40)
[2020-10-08] MEDS ORDERED: NICOTINE 14MG/24HR PATCH TRANSDERM SCH (09:00)
[2020-10-08] MEDS ORDERED: busPIRone HCl 5 MG TAB PO PRN (11:42)
[2020-10-08] MEDS: SERTRALINE 50 MG TAB PO SCH (12:10)
--- NOTE | 2020-10-08 12:35 | P.CN ---
Psychiatric Consult - . Consult date: 10/08/20 Consult:: 10/08/20 11:15 IDENTIFYING DATA: Patient is a 40 yo male with hx of alcohol use disorder and depression Who currently lives in a house with a roommate has no kids and works for [employer] Reason for consult: depression, etoh use and continued follow up. HPI: Patient initially presented to the hospital initially to the ER with etoh intoxication with a BAL of 237. He had claimed in the ER that he Was in rehab and then recently relapsed on alcohol use. He claimed that he has been drinking approximately 1 gallon of vodka per day. Patient has reported depression and ongoing suicidal ideation. He also had reported to have stopped taking his psychiatric medications including Paxil. Patient's UDS was positive for THC. Patient was seen to today by underwriter mortgage loan and agreeable to speak with underwriter mortgage loan in The office today. Patient appears to be sweating and was covering himself with a blanket and claims that he is feeling tremulous at this time and feeling as though he has "bodyaches". He described these as the alcohol withdrawal that he is having and states that he has had severe withdrawal symptoms in the past including a withdrawal seizure several years ago. He denies any history of DTs. He claims that his sleep has been poor and he has been feeling depressed. He states that he relapsed back on alcohol approximately 5 weeks ago. He states that his last drink was 24 hours before being admitted to the hospital. He states that he stopped taking his psychiatric meds because "I didn't think I needed them anymore". He claims that he is not happy with his life as to his financial situation and his career. He claims that he is willing to go to rehab upon discharge. After evaluation on the mental health unit by underwriter mortgage loan, patient began experiencing more severe withdrawal symptoms and was scoring CIWA scores in the 15 range. After medicine evaluation, patient was deemed high risk for going into withdrawals and possibly DTs and was transferred to the medical floors. Patient was seen today by underwriter mortgage loan at the bedside and appeared to be less tremulous today and claims that he is doing "a bit better" with regard to his withdrawal symptoms and his mood. He states that his anxiety is still "up and down". He claims that he is feeling less depressed today and was requesting to be placed on a new antidepressant. He states that he is still wanting to go to rehab when he leaves the hospital and was future oriented. He claims that he did not sleep well last night. He claims to have been improving appetite. He is denying any current suicidal or homicidal ideations intent or plan. He is denying any auditory or visual hallucinations. Patient denies any flight of ideas racing thoughts and increased in goal directed behavior. Patient admits to using Alcohol greater than a fifth of vodka a day for the past 5-6 weeks. He states that he has been to rehab in the past. He claims that he smokes marijuana occasionally and smokes cigarettes. PAST PSYCHIATRIC HISTORY: Patient states that He has a history of depression and anxiety and alcohol use. Patient was previously on BuSpar, Paxil and trazodone and was taking Abilify in the past. Patient denies any previous psychiatric hospitalizations. Patient denies any psychiatric outpatient follow-up. Patient denies any history of suicide attempts in the past. Past Medical History: Seizure Disorder Additional Past Medical History / Comment(s): kidney stones, psorasis, hx alcoholism ALLERGIES: as per EMR CHEMICAL DEPENDENCY HISTORY: as per HPI FAMILY PSYCHIATRIC/SUBSTANCE USE HISTORY: States that his mother has some form of mental illness. SOCIAL HISTORY: Patient was born and raised in [facility] and states that he left his mother 13 years old and has been "on my own since". He states that he dropped out of high school [place] and finish his bachelor's in [employer] arts at the [employer]. He states that he is currently working another degree at this time. He denies ever going to fci or penitentiary. He states that he did not have any kids is unmarried and lives in a house with a roommate. he claims he currently works for [employer] MENTAL STATUS EXAM: General Appearance: Patient appears to be less tremulous, sweating today, stated age is alert, Attempts to cooperate. Patient appears to have improving hygiene and grooming. Behavior: Patient is seated without any agitated behavior. Attempts to cooperate Speech: Patient's speech is fluent and nonpressured. Mood/Affect: Patient reports their mood is improving mildly, affect is congruent and constricted Suicidality/Homicidality: Patient denies having any homicidal ideation intent or plan. Denies any suicidal ideations intent or plan Perceptions: Patient denies any visual hallucinations and denies any auditory hallucinations Though content/process: There is no evidence of any delusional thought content and thought process is linear and goal-directed. More future oriented today Memory and concentration: AOX3, grossly intact for the purposes of this session. Can spell "WORLD" backwards Judgment and insight: Improving STRENGTHS/WEAKNESSES: strength is that patient is resilient. Weakness is that patient has poor judgment and poor social support. INTELLECT: average IMPRESSIONS: Major depressive disorder, recurrent, without psychotic features Alcohol use disorder, currently in withdrawal Cannabis use disorder Nicotine dependence PLAN: -At this time patient DOES NOT meet criteria for inpatient psychiatric admission. -Would recommend the following medication changes/additions: Started Zoloft 50 mg daily for mood/anxiety. Increase trazodone 2000 mg daily at bedtime for mood/insomnia, BuSpar 15 mg twice a day when necessary for anxiety. -CIWA protocol with PRN Ativan for alcohol withdrawal. Continue to monitor vital signs. Continue with Librium 25mg tid for etoh w/d or consider Valium standing dose if librium is not possible at this time. -nuclear worker technician to provide patient with outpatient mental health/psychiatry resources for appropriate follow up upon discharge -Butcher Fish spoke with patient about substance abuse and the harmful effects on medical and mental health, patient verbally understood and agreed. -nuclear worker technician to provide patient substance use treatment resources including AA/NA meetings in the community. -nuclear worker technician to provide patient with access line number to call for inpatient substance rehab -Communicated plan to patient's nurse and SW -Will continue to follow along and likely sign off tomorrow if patient improves -Please contact with any questions.
--- NOTE | 2020-10-08 14:31 | P.HPIM ---
History of Present Illness Patient was admitted to psychiatric floor because of suicidal ideation depression. Patient the drinks about half a gallon of hard liquor every day. Patient has been drinking everyday patient had history of a delirium tremens with seizures in the past. I was called to evaluate the patient has patient has high CIWA score. As told patient has high CIWA score of around 20 when I valid the patient patient the was not insulin and withdrawals. Although patient will benefit from transfer to medical floor as his withdrawals are expected to get worse. Patient last drink was yesterday patient came in with the blood alcohol level of 237. Patient did go to alcohol rehabitation program but relapsed. Patient denied any fever chills patient any cough. Patient does smoke. He smokes about 1 pack per day use to smoke 2 packs per day. Patient has wheezing on exam along with cough and greenish sputum production yesterday. Patient wheezing did improve. Patient is still requiring Ativan every 1 hour because of which patient will need to stay in inpatient medical floor. Patient overall feeling much better today. REVIEW OF SYSTEMS: CONSTITUTIONAL: No fever, no malaise, no fatigue. HEENT: No recent visual problems or hearing problems. Denied any sore throat. CARDIOVASCULAR: No chest pain, orthopnea, PND, no palpitations, no syncope. PULMONARY: No shortness of breath, no cough, no hemoptysis. GASTROINTESTINAL: No diarrhea, no nausea, no vomiting, no abdominal pain. NEUROLOGICAL: No headaches, no weakness, no numbness. HEMATOLOGICAL: Denies any bleeding or petechiae. GENITOURINARY: Denies any burning micturition, frequency, or urgency. MUSCULOSKELETAL/RHEUMATOLOGICAL: Denies any joint pain, swelling, or any muscle pain. ENDOCRINE: Denies any polyuria or polydipsia. The rest of the 14-point review of systems is negative. PHYSICAL EXAMINATION: GENERAL: The patient is alert and oriented x3, not in any acute distress. Well developed, well nourished. HEENT: Pupils are round and equally reacting to light. EOMI. No scleral icterus. No conjunctival pallor. Normocephalic, atraumatic. No pharyngeal erythema. No thyromegaly. CARDIOVASCULAR: S1 and S2 present. No murmurs, rubs, or gallops. PULMONARY: Wheezing completely resolved good air entry into bilateral lung ferrell no crackles were appreciated ABDOMEN: Soft, nontender, nondistended, normoactive bowel sounds. No palpable organomegaly. MUSCULOSKELETAL: No joint swelling or deformity. EXTREMITIES: No cyanosis, clubbing, or pedal edema. NEUROLOGICAL: Gross neurological examination did not reveal any focal deficits. SKIN: No rashes. Assessment and plan -Alcohol abuse, counseling was provided -Alcohol withdrawal patient is still having significant withdrawals requiring Ativan every 1 hour patient is presently on Ativan [facility] protocol -COPD with acute exacerbation, improved with inhalational steroids and inhalational treatments. Patient is also on doxycycline -Marijuana use: Counseling was provided -Major depression: Patient had suicidal additional admission patient was evaluated by psychiatry here. -Nicotine abuse -History of psoriasis for which patient is on oral Dilantin body which will be continued patient is also on meloxicam for arthritis. -DVT prophylaxis: Lovenox Past Medical History Past Medical History: Seizure Disorder Additional Past Medical History / Comment(s): kidney stones, psorasis, hx alcoholism, History of Any Multi-Drug Resistant Organisms: None Reported Additional Past Surgical History / Comment(s): oral surgery, Past Anesthesia/Blood Transfusion Reactions: No Reported Reaction Past Psychological History: Anxiety, Bipolar Smoking Status: Current every day smoker Past Alcohol Use History: Abuse, Daily, Heavy Past Drug Use History: Marijuana, Opiates Medications and Allergies Home Medications Medication Instructions Recorded Confirmed Type Adalimumab [Humira(Cf) Pen] 40 mg SQ Q14D 11/03/19 10/07/20 History PARoxetine HCL [Paxil] 30 mg PO DAILY 11/03/19 10/07/20 History traZODone HCL [Desyrel] 100 mg PO HS 11/03/19 10/07/20 History Loratadine [Claritin] 10 mg PO DAILY PRN 06/12/20 10/07/20 History Meloxicam 15 mg PO DAILY 06/12/20 10/07/20 History ARIPiprazole [Abilify] 2.5 mg PO DAILY #30 tab 06/15/20 10/07/20 Rx Folic Acid 1 mg PO DAILY #30 tablet 06/15/20 10/07/20 Rx Ibuprofen [Motrin] 400 mg PO Q6HR PRN tab 06/15/20 10/07/20 Rx Multivitamins, Thera [Multivitamin] 1 tab PO DAILY #30 tablet 06/15/20 10/07/20 Rx Thiamine [Vitamin B-1] 100 mg PO DAILY #30 tablet 06/15/20 10/07/20 Rx Sildenafil Citrate 50 mg PO DAILY PRN 10/06/20 10/07/20 History busPIRone HCL [Buspar] 7.5 mg PO TID PRN 10/06/20 10/07/20 History tiZANidine HCL 4 mg PO HS 10/06/20 10/07/20 History Allergies Allergy/AdvReac Type Severity Reaction Status Date / Time No Known Allergies Allergy Verified 10/07/20 19:51 Physical Exam Vitals: Vital Signs Temp Pulse Pulse Resp BP Pulse Ox 10/08/20 13:22 88 18 10/08/20 12:01 92 10/08/20 11:52 88 10/08/20 11:09 98 F 88 18 119/68 98 10/08/20 08:39 90 10/08/20 08:26 86 10/08/20 07:49 84 16 10/08/20 07:48 97.7 F 84 16 110/67 98 10/08/20 03:48 98.8 F 83 18 102/64 99 10/08/20 00:00 98.9 F 99 17 107/70 98 10/07/20 20:45 96 10/07/20 20:32 91 10/07/20 20:00 98.7 F 92 18 121/79 97 10/07/20 18:44 98 F 68 16 98 Intake and Output 10/07/20 10/08/20 10/08/20 22:59 06:59 14:59 Intake Total 325 540 540 Output Total 600 Balance 325 540 -60 Intake: Oral 325 540 540 Output: Urine 600 Other: Voiding Method Toilet Toilet Toilet # Voids 1 1 Weight 72.575 kg 61.9 kg Results CBC & Chem 7: 10/08/20 06:46 10/08/20 06:46 Labs: Abnormal Lab Results - Last 24 Hours (Table) 10/08/20 Range/Units 06:46 Sodium 136 L (137-145) mmol/L Creatinine 0.48 L (0.66-1.25) mg/dL Thrombosis Risk Factor Assmnt - Choose All That Apply Any of the Below Risk Factors Present?: No
[2020-10-08] MEDS: chlordiazePOXIDE 5 MG CAPSULE PO SCH ×2 (15:14→19:59)
[2020-10-08] MEDS: NICOTINE 21MG/24HR PATCH TRANSDERM SCH (20:40)
[2020-10-08] MEDS ORDERED: traZODone HCL 100 MG TAB PO SCH (21:00)
[2020-10-09] MEDS: LORazepam 2 MG/ML INJ IV PRN ×3 (00:31→08:08)
[2020-10-09] MEDS ORDERED: LORazepam 2 MG/ML INJ IV STA (05:41)
[2020-10-09 08:00] VITALS: TEMP 98
[2020-10-09] MEDS: MELOXICAM 7.5 MG TAB PO SCH (08:06)
[2020-10-09] MEDS: THIAMINE 100 MG TAB PO SCH (08:06)
[2020-10-09] MEDS: NICOTINE 21MG/24HR PATCH TRANSDERM SCH (08:06)
[2020-10-09] MEDS: PANTOPRAZOLE 40 MG TABLET PO SCH (08:07)
[2020-10-09] MEDS: FOLIC ACID 1 MG TAB PO SCH (08:07)
[2020-10-09] MEDS: SERTRALINE 50 MG TAB PO SCH (08:07)
[2020-10-09] MEDS: chlordiazePOXIDE 5 MG CAPSULE PO SCH (08:07)
[2020-10-09] MEDS: MULTIVITAMINS, THERA 1 EACH TAB PO SCH (08:07)
[2020-10-09] MEDS: DOXYCYCLINE 100 MG CAP PO SCH (08:07)
[2020-10-09] MEDS: BUDESONIDE 0.5 MG/2 ML NEBU INHALATION SCH (08:28)
[2020-10-09] MEDS: IPRATROPIUM-ALBUTEROL 3 ML NEB INHALATION SCH ×2 (08:28→11:52)
[2020-10-09] MEDS ORDERED: ENOXAPARIN 40 MG/0.4 ML SYRINGE SQ SCH (09:00)
[2020-10-09] MEDS: LORazepam 1 MG TAB PO SCH ×2 (09:34→12:09)
[2020-10-09 10:04] VITALS: BP 121/68; RESP 16
[2020-10-09] MEDS ORDERED: diphenhydrAMINE 25 MG CAP PO PRN (11:19)
--- NOTE | 2020-10-09 11:34 | P.PN ---
Progress Note - Text Progress Note Date: 10/09/20 Interval History: Patient was seen today for psychiatric follow-up regarding patient's depression and alcohol use/withdrawal. Patient claims that he is doing better overall in terms of his mood and anxiety. He states that she did not realize that he is taking Zoloft and thought he was taking Paxil. He continues to be fairly future oriented and speaking about wanting to go to rehab once he is discharged at [facility]. He spoke about the negative effects of alcohol. He states that he did not sleep well last night and was agreeable to have his trazodone increased and also try Benadryl if needed. He claims that his withdrawal symptoms have been improving however just received Ativan. He noted that he is not having any tremors at this time however his CIWA scores were fairly elevated today ranging anywhere from 12-20. He was fairly focused on discharge during the conversation. At this time patient denies any suicidal or homical ideations, intent or plan. Patient denies any auditory, visual hallucinations and denies any paranoia or delusions. Patient denies any side effects from the medications and has been compliant with meds. Mental Status Exam: General Appearance: Patient appears to be less tremulous, sweating today, stated age is alert, Attempts to cooperate. Patient appears to have improving hygiene and grooming. Behavior: Patient is seated without any agitated behavior. Attempts to cooperate Speech: Patient's speech is fluent and nonpressured. Mood/Affect: Patient reports their mood is improving, affect is congruent and constricted Suicidality/Homicidality: Patient denies having any homicidal ideation intent or plan. Denies any suicidal ideations intent or plan Perceptions: Patient denies any visual hallucinations and denies any auditory hallucinations Though content/process: There is no evidence of any delusional thought content and thought process is linear and goal-directed. More future oriented. Focused on discharge Memory and concentration: AOX3, grossly intact for the purposes of this session Judgment and insight: Improving Assessment Major depressive disorder, recurrent, without psychotic features Alcohol use disorder, currently in withdrawal Cannabis use disorder Nicotine dependence Plan: -At this time patient DOES NOT meet criteria for inpatient psychiatric admission. -Would recommend the following medication changes/additions: Zoloft 50 mg daily for mood/anxiety. Increase trazodone 150 mg daily at bedtime for mood/insomnia, BuSpar 15 mg twice a day when necessary for anxiety. added benadryl 25mg qhs prn for insomnia -CIWA protocol with PRN Ativan for alcohol withdrawal. Continue to monitor vital signs. Continue with Librium 25mg tid prn for etoh w/d -derrick worker well service to provide patient with outpatient mental health/psychiatry resources for appropriate follow up upon discharge -Shank Pinner spoke with patient about substance abuse and the harmful effects on medical and mental health, patient verbally understood and agreed. -derrick worker well service to provide patient substance use treatment resources including AA/NA meetings in the community. -derrick worker well service to provide patient with access line number to call for inpatient substance rehab -Communicated plan to patient's nurse -At this time psychiatry will sign off. -Please contact with any questions.
[2020-10-09 12:03] VITALS: PULSE 72
--- NOTE | 2020-10-09 14:15 | P.PN ---
Subjective Progress Note Date: 10/09/20 Patient was admitted to psychiatric floor because of suicidal ideation depression. Patient the drinks about half a gallon of hard liquor every day. Patient has been drinking everyday patient had history of a delirium tremens with seizures in the past. I was called to evaluate the patient has patient has high CIWA score. As told patient has high CIWA score of around 20 when I valid the patient patient the was not insulin and withdrawals. Although patient will benefit from transfer to medical floor as his withdrawals are expected to get worse. Patient last drink was yesterday patient came in with the blood alcohol level of 237. Patient did go to alcohol rehabitation program but relapsed. P atient denied any fever chills patient any cough. Patient does smoke. He smokes about 1 pack per day use to smoke 2 packs per day. Patient has wheezing on exam along with cough and greenish sputum production yesterday. Patient wheezing did improve. Patient is still requiring Ativan every 1 hour because of which patient will need to stay in inpatient medical floor. Patient overall feeling much better today. 10/09/2020 Patient is seen and evaluated in follow-up today extremely anxious and states he will be leaving as he has to go to work. Patient has been seen and evaluated by psychiatry stating he does not meet criteria and has been cleared and recommending outpatient resources with [facility]. Patient denies any suicidal ideation or thoughts of wanting to harm himself or others. Nursing staff patient has been scoring above 10 on the CIWA protocol requiring Ativan continuous every 2 hours. Have added oral Ativan and instructed nursing staff to limit IV Ativan if possible. Patient is adamant about leaving today. Vital signs are stable. Patient denies any chest pain or palpitations. Patient is up and walking throughout the halls and to the bathroom with no difficulty. Patient is tolerating diet with no reports of nausea or vomiting noted. Will continue CIWA protocol and monitor closely. Review of systems: Constitutional: No reports of fatigue, fever, or chills Cardiovascular: No reports of chest pain or palpitations Respiratory: No reports of shortness of breath or cough GI: No reports of nausea, vomiting, or diarrhea : No reports of dysuria or retention Neurovascular: No reports of weakness or numbness All medications have been reviewed PHYSICAL EXAMINATION: GENERAL: The patient is alert and oriented x3, not in any acute distress. Well developed, well nourished. HEENT: Pupils are round and equally reacting to light. EOMI. No scleral icterus. No conjunctival pallor. Normocephalic, atraumatic. No pharyngeal erythema. No thyromegaly. CARDIOVASCULAR: S1 and S2 present. No murmurs, rubs, or gallops. PULMONARY: Chest is clear to auscultation with no wheezing or rhonchi noted. ABDOMEN: Soft, nontender, nondistended, normoactive bowel sounds. No palpable organomegaly. MUSCULOSKELETAL: No joint swelling or deformity. EXTREMITIES: No cyanosis, clubbing, or pedal edema. NEUROLOGICAL: Gross neurological examination did not reveal any focal deficits. SKIN: No rashes. Assessment and plan -Alcohol abuse, counseling was provided -Alcohol withdrawal patient is still having significant withdrawals requiring Ativan every 2 hours patient is presently on Ativan CIWA protocol -COPD with acute exacerbation, improved with inhalational steroids and inhalational treatments. Patient is also on doxycycline -Marijuana use: Counseling was provided -Major depression: Patient had suicidal additional admission patient was evaluated by psychiatry here. -Nicotine abuse -History of psoriasis for which patient is on oral Dilantin body which will be continued patient is also on meloxicam for arthritis. -DVT prophylaxis: Lovenox Plan: Patient will be continued on CIWA protocol as nursing staff reports he has been requiring Ativan almost every 2 hours. Patient is extremely anxious and states he is sleeping today. Given his high CIWA scoring discussed with the patient about monitoring overnight with possibility of discharged tomorrow. Patient states he is leaving regardless. Patient is alert and oriented 3 and denies any suicidal ideation or thoughts of wanting to harm himself or others. Patient states he has to get to work as he has bills to pay and cannot stay here any longer. Psychiatry has evaluated the patient recommending outpatient community mental health resources and following up with primary care provider. Objective - Vital Signs Vital signs: Vital Signs Temp 98 F 10/09/20 10:03 Pulse 72 10/09/20 12:03 Resp 16 10/09/20 10:03 BP 121/68 10/09/20 10:03 Pulse Ox 98 10/09/20 10:03 Intake & Output 10/08/20 10/09/20 10/09/20 18:59 06:59 18:59 Intake Total 720 780 Output Total 600 Balance 120 780 Weight 70.2 kg Intake: Oral 720 780 Output: Urine 600 Other: Voiding Method Toilet Toilet # Voids 3 1 2 - Labs CBC & Chem 7: 10/08/20 06:46 10/08/20 06:46
--- NOTE | 2020-10-09 14:21 | P.DS ---
Providers Date of admission: 10/07/20 18:39 Expected date of discharge: 10/09/20 Attending physician: Eliana Gilliam Consults: 10/07/20 21:53 Consult Physician Routine Consulting Provider: David Fenton Consult Reason/Comments: 3 west tx Do you want consulting provider notified?: Yes, Notify in am Primary care physician: Eliana Gilliam Hospital Course: Final diagnosis -Alcohol abuse, counseling was provided -Alcohol withdrawal patient maintained on CIWA protocol -COPD with acute exacerbation, improved -Marijuana use: Counseling was provided -Major depression -Nicotine abuse -History of seizure disorder -DVT prophylaxis Discharge disposition Patient has left AGAINST MEDICAL ADVICE. Patient agreeable to sign the paperwork. Patient states he has to get to work and denies any further withdrawals. Please refer to previous progress note and further documentation for further HPI. Hospital course Patient was admitted to psychiatric floor because of suicidal ideation depression. Patient the drinks about half a gallon of hard liquor every day. Patient has been drinking everyday patient had history of a delirium tremens with seizures in the past. I was called to evaluate the patient has patient has high CIWA score. As told patient has high CIWA score of around 20 when I valid the patient patient the was not insulin and withdrawals. Although patient will benefit from transfer to medical floor as his withdrawals are expected to get worse. Patient last drink was yesterday patient came in with the blood alcohol level of 237. Patient did go to alcohol rehabitation program but relapsed. Patient denied any fever chills patient any cough. Patient does smoke. He smokes about 1 pack per day use to smoke 2 packs per day. Patient has wheezing on exam along with cough and greenish sputum production yesterday. Patient wheezing did improve. Patient is still requiring Ativan every 1 hour because of which patient will need to stay in inpatient medical floor. Patient overall feeling much better today. Discussed with the patient about close monitoring and maintaining CIWA protocol as he has been requiring IV Ativan almost every 2 hours per nursing staff and patient refused and stated he had to go to work and will be leaving. Risk versus benefits discussed and explained in detail with the patient and patient is persistently bleeding. Will be leaving AMA. GENERAL: The patient is alert and oriented x3, not in any acute distress. Well developed, well nourished. Vital signs are stable. Gait is steady with no active signs of withdrawal at this time, patient is extremely anxious to leave HEENT: Pupils are round and equally reacting to light. EOMI. No scleral icterus. No conjunctival pallor. Normocephalic, atraumatic. No pharyngeal erythema. No thyromegaly. CARDIOVASCULAR: S1 and S2 present. No murmurs, rubs, or gallops. PULMONARY: Chest is clear to auscultation with no wheezing or rhonchi noted. ABDOMEN: Soft, nontender, nondistended, normoactive bowel sounds. No palpable organomegaly. MUSCULOSKELETAL: No joint swelling or deformity. EXTREMITIES: No cyanosis, clubbing, or pedal edema. NEUROLOGICAL: Gross neurological examination did not reveal any focal deficits. SKIN: No rashes. Patient Condition at Discharge: Fair Plan - Discharge Summary Discharge Rx Participant: Yes New Discharge Prescriptions: No Action PARoxetine HCL [Paxil] 30 mg PO DAILY Adalimumab [Humira(Cf) Pen] 40 mg SQ Q14D traZODone HCL [Desyrel] 100 mg PO HS Meloxicam 15 mg PO DAILY tiZANidine HCL 4 mg PO HS Loratadine [Claritin] 10 mg PO DAILY PRN PRN Reason: Allergy Symptoms ARIPiprazole [Abilify] 2.5 mg PO DAILY #30 tab Folic Acid 1 mg PO DAILY #30 tablet Ibuprofen [Motrin] 400 mg PO Q6HR PRN tab PRN Reason: Mild Pain Or Fever > 100.5 Multivitamins, Thera [Multivitamin] 1 tab PO DAILY #30 tablet Thiamine [Vitamin B-1] 100 mg PO DAILY #30 tablet busPIRone HCL [Buspar] 7.5 mg PO TID PRN PRN Reason: Anxiety Sildenafil Citrate 50 mg PO DAILY PRN PRN Reason: E.D. Discharge Medication List Adalimumab [Humira(Cf) Pen] 40 mg SQ Q14D 11/03/19 [History] PARoxetine HCL [Paxil] 30 mg PO DAILY 11/03/19 [History] traZODone HCL [Desyrel] 100 mg PO HS 11/03/19 [History] Loratadine [Claritin] 10 mg PO DAILY PRN 06/12/20 [History] Meloxicam 15 mg PO DAILY 06/12/20 [History] ARIPiprazole [Abilify] 2.5 mg PO DAILY #30 tab 06/15/20 [Rx] Folic Acid 1 mg PO DAILY #30 tablet 06/15/20 [Rx] Ibuprofen [Motrin] 400 mg PO Q6HR PRN tab 06/15/20 [Rx] Multivitamins, Thera [Multivitamin] 1 tab PO DAILY #30 tablet 06/15/20 [Rx] Thiamine [Vitamin B-1] 100 mg PO DAILY #30 tablet 06/15/20 [Rx] Sildenafil Citrate 50 mg PO DAILY PRN 10/06/20 [History] busPIRone HCL [Buspar] 7.5 mg PO TID PRN 10/06/20 [History] tiZANidine HCL 4 mg PO HS 10/06/20 [History] Discharge/Stand Alone Forms: Who Do I Call?, AA Meetings, Community Resources, Outpatient Counseling Discharge Disposition: Left Against Medical Advice
[2020-10-09] MEDS ORDERED: traZODone HCL 50 MG TAB PO SCH (21:00)
== END 2020-10-09 12:24 | disposition left against medical advice (07) | DRG 894 ==
LOC: 3SCARD 18:39
PROVIDERS: ADMIT Internal Medicine; ATTEND Internal Medicine
DX: F10.239 Alcohol dependence with withdrawal, unspecified (principal); J44.1 Chronic obstructive pulmonary disease with (acute) exacerbation; R45.851 Suicidal ideations; F33.9 Major depressive disorder, recurrent, unspecified; F41.9 Anxiety disorder, unspecified; F12.10 Cannabis abuse, uncomplicated; L40.9 Psoriasis, unspecified; M19.90 Unspecified osteoarthritis, unspecified site; Y90.7 Blood alcohol level of 200-239 mg/100 ml; F17.210 Nicotine dependence, cigarettes, uncomplicated; Z71.6 Tobacco abuse counseling; Z79.1 Long term (current) use of non-steroidal anti-inflammatories (NSAID); Z79.899 Other long term (current) drug therapy; Z60.2 Problems related to living alone; Z71.41 Alcohol abuse counseling and surveillance of alcoholic; Z71.51 Drug abuse counseling and surveillance of drug abuser; Z86.69 Personal history of other diseases of the nervous system and sense organs; Z87.442 Personal history of urinary calculi
CPT/HCPCS: 80048; 85027; 94640

== ENCOUNTER → 2021-03-18 | Outpatient (CLI) | payer OTHER ==
[2021-03-18 23:06] LABS: Basophils # (A) 0.06 X 10*3/uL (0.00-0.10); Basophils % (A) 1.3 %; Eosinophils # (A) 0.09 X 10*3/uL (0.04-0.35); HCT 45.7 % (39.6-50.0); HGB 14.7 g/dL (13.0-17.0); Lymphocytes # (A) 0.93 X 10*3/uL (0.90-5.00); Lymphocytes % (A) 20.7 %; MCH 29.2 pg (27.0-32.0); MCHC 32.2 g/dL (32.0-37.0); MCV 90.7 fL (80.0-97.0); Mean Platelet Volume 10.6 fL (9.5-12.2); Monocytes % (A) 13.3 %; Neutrophils # (A) 2.81 X 10*3/uL (1.80-7.70); Neutrophils % (A) 62.5 %; Platelet Count 251 X 10*3/uL (140-440); RBC 5.04 X 10*6/uL (4.40-5.60); RDW 14.2 % (11.5-14.5)
[2021-03-18 23:24] LABS: Hepatitis B Surface Antigen Nonreactive (Nonreactive)
[2021-03-18 23:59] LABS: African American GFR (CKD) 126.1 (60.0-200.0); Non-African American GFR(CKD) 108.8 (60.0-200.0)
[2021-03-19 08:50] LABS: Hepatitis B Surface AB- Quant 3.5 mIU/mL; Hepatitis B Surface Antibody Nonreactive (Nonreactive)
== END | disposition home or self-care (01) ==
LOC: LABWHC1 14:46
PROVIDERS: ATTEND Nurse Practitioner Family
DX: L40.0 Psoriasis vulgaris (principal); L81.4 Other melanin hyperpigmentation; D22.5 Melanocytic nevi of trunk; D22.61 Melanocytic nevi of right upper limb, including shoulder; D22.62 Melanocytic nevi of left upper limb, including shoulder
CPT/HCPCS: 36415; 82565; 84450; 84460; 85025; 86480; 86706; 87340

== ENCOUNTER 2021-08-07 15:21 | Emergency (ER) | payer OTHER ==
[2021-08-07] MEDS ORDERED: SODIUM CHLORIDE 0.9% 1,000 ML IV STA (16:07)
[2021-08-07] MEDS ORDERED: levETIRAcetam IV 1,000 MG in SALINE 1 100ML.BAG IVPB STA (16:07)
[2021-08-07 17:02] LABS: Basophils # (A) 0.1 k/uL (0-0.2); Basophils % (A) 1 %; Eosinophils # (A) 0.1 k/uL (0-0.7); Eosinophils % (A) 2 %; HCT 46.4 % (39.0-53.0); HGB 14.5 gm/dL (13.0-17.5); Lymphocytes # (A) 1.7 k/uL (1.0-4.8); Lymphocytes % (A) 18 %; MCH 29.4 pg (25.0-35.0); MCHC 31.3 g/dL (31.0-37.0); Mean Platelet Volume 7.6; Monocytes # (A) 0.6 k/uL (0-1.0); Monocytes % (A) 6 %; Neutrophils # (A) 6.7 k/uL (1.3-7.7); Neutrophils % (A) 71 %; Platelet Count 270 k/uL (150-450); RBC 4.93 m/uL (4.30-5.90); WBC 9.5 k/uL (3.8-10.6)
[2021-08-07 17:09] LABS: ALT 16 U/L (4-49); AST 27 U/L (17-59); African American GFR (CKD) >90 (>60 ml/min/1.73 sqM); Albumin 4.4 g/dL (3.5-5.0); Alcohol <10 mg/dL; Alkaline Phosphatase 54 U/L (38-126); Anion Gap 7 mmol/L; Blood Urea Nitrogen 15 mg/dL (9-20); Calcium 8.4 mg/dL (8.4-10.2); Carbon Dioxide 25 mmol/L (22-30); Chloride 106 mmol/L (98-107); Glucose 98 mg/dL (74-99); Magnesium 1.9 mg/dL (1.6-2.3); Non-African American GFR(CKD) >90 (>60 ml/min/1.73 sqM); Potassium 4.1 mmol/L (3.5-5.1); Sodium 138 mmol/L (137-145); Total Bilirubin 0.2 mg/dL (0.2-1.3); Total Protein 6.6 g/dL (6.3-8.2)
[2021-08-07 17:11] LABS: Amphetamine Screen,Urine Not Detected (NotDetected); Barbiturate Screen,Urine Not Detected (NotDetected); Benzodiazepines Screen,Urine Not Detected (NotDetected); Cocaine Screen,Urine Not Detected (NotDetected); Methadone Screen, Urine Not Detected (NotDetected); Opiate Screen,Urine Not Detected (NotDetected); Oxycodone Screen, Urine Not Detected (NotDetected); Phencyclidine Screen,Urine Not Detected (NotDetected); Tricyclic Antidepressant,Urine Not Detected (NotDetected); Urn Cannabinoid Scrn Detected (NotDetected)
[2021-08-07 17:16] LABS: Appearance,Urine Cloudy (Clear); Bacteria,Urine Rare /hpf; Bilirubin,Urine Negative (Negative); Blood,Urine Moderate (Negative); Color,Urine Yellow; Glucose,Urine (UA) Negative (Negative); Hyaline Casts,Urine 14 /lpf (0-2); Ketones,Urine Negative (Negative); Leukocyte Esterase,Urine Trace (Negative); Mucus,Urine Few /hpf; Nitrite,Urine Negative (Negative); PH, Urine 5.5 (5.0-8.0); Protein,Urine 1+ (Negative); RBC,Urine 137 /hpf (0-5); Specific Gravity,Urine 1.017 (1.001-1.035); Urobilinogen,Urine <2.0 mg/dL (<2.0); WBC,Urine 5 /hpf (0-5)
--- NOTE | 2021-08-07 17:47 | ED ---
General Adult HPI - General Chief complaint: Seizure Stated complaint: Seizures Time Seen by Provider: 08/07/21 15:59 Source: patient, EMS, RN notes reviewed, old records reviewed Mode of arrival: EMS Limitations: no limitations - History of Present Illness Initial comments: Patient is a 41-year-old male who presents emergency Department with a breakthr ough seizure. 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 Has been off antiepileptic medications for multiple years. Last seizure was approximately 5 years ago. Was at home today when he believes he had a seizure. Was feeling tired and the next thing he knew he was being run out of his room by EMS. States he had similar feelings to the seizure. Was unwitnessed at that time. Otherwise now feels normal. May have bitten his tongue but denies urinary incontinence. Is uncertain which antiepileptic medications he should be on. Denies any history of alcohol withdrawals, DVTs. Denies any fevers, chills, cough, chest pain. His no current symptoms at this time. Has not had a seizure since. Presents for further evaluation at this time. - Related Data Home Medications Medication Instructions Recorded Confirmed Adalimumab [Humira(Cf) Pen] 40 mg SQ Q14D 11/03/19 10/07/20 PARoxetine HCL [Paxil] 30 mg PO DAILY 11/03/19 10/07/20 traZODone HCL [Desyrel] 100 mg PO HS 11/03/19 10/07/20 Loratadine [Claritin] 10 mg PO DAILY PRN 06/12/20 10/07/20 Meloxicam 15 mg PO DAILY 06/12/20 10/07/20 Sildenafil Citrate 50 mg PO DAILY PRN 10/06/20 10/07/20 busPIRone HCL [Buspar] 7.5 mg PO TID PRN 10/06/20 10/07/20 tiZANidine HCL 4 mg PO HS 10/06/20 10/07/20 Previous Rx's Medication Instructions Recorded ARIPiprazole [Abilify] 2.5 mg PO DAILY #30 tab 06/15/20 Folic Acid 1 mg PO DAILY #30 tablet 06/15/20 Ibuprofen [Motrin] 400 mg PO Q6HR PRN tab 06/15/20 Multivitamins, Thera [Multivitamin] 1 tab PO DAILY #30 tablet 06/15/20 Thiamine [Vitamin B-1] 100 mg PO DAILY #30 tablet 06/15/20 levETIRAcetam [Keppra] 500 mg PO Q12HR 30 Days #60 tab 08/07/21 Allergies Allergy/AdvReac Type Severity Reaction Status Date / Time No Known Allergies Allergy Verified 08/07/21 15:28 Review of Systems ROS Statement: Those systems with pertinent positive or pertinent negative responses have been documented in the HPI. Review of Systems: CONST: Denies fever EYES: Denies blurry vision ENT: Denies nasal congestion C/V: Denies Chest pain RESP: Denies shortness of breath GI: Denies abdominal pain : Denies dysuria SKIN: Denies rash. MSK: Denies joint pain. NEURO: Denies headache ROS Other: All systems not noted in ROS Statement are negative. Past Medical History Past Medical History: Seizure Disorder Additional Past Medical History / Comment(s): kidney stones, psorasis, hx alcoholism, History of Any Multi-Drug Resistant Organisms: None Reported Additional Past Surgical History / Comment(s): oral surgery, Past Anesthesia/Blood Transfusion Reactions: No Reported Reaction Past Psychological History: Anxiety, Bipolar Smoking Status: Current every day smoker Past Alcohol Use History: None Reported, Abuse, Daily, Heavy Past Drug Use History: Marijuana General Exam - General Exam Comments Initial Comments: General: Appears in no acute distress. HEAD: Normal with no signs of head trauma. EYES: PERRLA, EOMI, conjunctiva normal, no discharge. Pupils are 3 mm and equal bilaterally. ENT: Hearing grossly intact, normal oropharynx.Bruising over the left lateral tongue. No obvious bleeding. RESPIRATORY: Clear breath sounds bilaterally. No wheezes, rales, or rhonchi. C/V: Regular rate and rhythm. S1 and S2 auscultated, no edema, peripheral pulses 2+ and intact throughout ABD: Abd is soft, nontender, nondistended EXT: Normal range of motion, no obvious deformity SKIN: No rashes or lesions observed on exposed skin. NEURO: Alert and oriented 4. No focal deficits. Cranial nerves 2 through 12 are intact. NIH of 0. GCS is 15. Limitations: no limitations Course Vital Signs 08/07/21 08/07/21 08/07/21 15:22 16:46 17:00 Temperature 98.3 F Pulse Rate 90 84 72 Respiratory 18 18 18 Rate Blood Pressure 128/82 124/68 116/70 O2 Sat by Pulse 95 96 95 Oximetry 08/07/21 08/07/21 18:00 19:15 Temperature 98.2 F Pulse Rate 73 70 Respiratory 16 16 Rate Blood Pressure 106/67 106/70 O2 Sat by Pulse 95 99 Oximetry Medical Decision Making - Medical Decision Making Based on the patient's presentation and physical exam, does appear that the patient may have had a breakthrough seizure. He does have signs of tongue biting on the left lateral tongue. He has a history of seizure disorder, however is not compliant with medications. We will obtain basic labs, EKG, seizure precautions were ordered. He will be given IV Keppra as well as 1 L fluid bolus. He was in agreement this plan. His no longer postictal, neuro exam is unremarkable and within normal limits at this time. EKG showed no signs of acute ischemia. Laboratory studies were all unremarkable including a normal glucose level. Urinalysis shows isolated RBCs, but no other symptoms. UDS is positive for marijuana. Alcohol level is negative. We discussed the patient's normal workup. I discussed restarting him on an antiepileptic medication, Keppra he was in agreement. We given a prescription for Keppra, as well as follow-up information for neurologist. He was observed in the emergency department for a extensive period of time. Vital signs remain within normal limits throughout his stay. He had no further seizures. I believe it is safe for him to be discharged home at this time and he is asking to leave. I will provide the patient with a prescription for Keppra. I instructed the patient to follow up with their PCP in the next 3 days. I explained that the patient should return to the emergency department if they experience any worsening symptoms. Strict return precautions were discussed with the patient. The patient expressed understanding of these instructions. I answered all q uestions that the patient had. The patient was discharged home in good condition with their prescriptions and follow up information. - Lab Data Result diagrams: 08/07/21 16:34 08/07/21 16:34 Lab Results 08/07/21 08/07/21 08/07/21 Range/Units 16:34 16:34 16:34 WBC 9.5 (3.8-10.6) k/uL RBC 4.93 (4.30-5.90) m/uL Hgb 14.5 (13.0-17.5) gm/dL Hct 46.4 (39.0-53.0) % MCV 94.0 (80.0-100.0) fL MCH 29.4 (25.0-35.0) pg MCHC 31.3 (31.0-37.0) g/dL RDW 14.0 (11.5-15.5) % Plt Count 270 (150-450) k/uL MPV 7.6 Neutrophils % 71 % Lymphocytes % 18 % Monocytes % 6 % Eosinophils % 2 % Basophils % 1 % Neutrophils # 6.7 (1.3-7.7) k/uL Lymphocytes # 1.7 (1.0-4.8) k/uL Monocytes # 0.6 (0-1.0) k/uL Eosinophils # 0.1 (0-0.7) k/uL Basophils # 0.1 (0-0.2) k/uL Sodium 138 (137-145) mmol/L Potassium 4.1 (3.5-5.1) mmol/L Chloride 106 (98-107) mmol/L Carbon Dioxide 25 (22-30) mmol/L Anion Gap 7 mmol/L BUN 15 (9-20) mg/dL Creatinine 0.78 (0.66-1.25) mg/dL Est GFR (CKD-EPI)AfAm >90 (>60 ml/min/1.73 sqM) Est GFR (CKD-EPI)NonAf >90 (>60 ml/min/1.73 sqM) Glucose 98 (74-99) mg/dL Calcium 8.4 (8.4-10.2) mg/dL Magnesium 1.9 (1.6-2.3) mg/dL Total Bilirubin 0.2 (0.2-1.3) mg/dL AST 27 (17-59) U/L ALT 16 (4-49) U/L Alkaline Phosphatase 54 (38-126) U/L Total Protein 6.6 (6.3-8.2) g/dL Albumin 4.4 (3.5-5.0) g/dL Urine Color Yellow Urine Appearance Cloudy (Clear) Urine pH 5.5 (5.0-8.0) Ur Specific [place] 1.017 (1.001-1.035) Urine Protein 1+ H (Negative) Urine Glucose (UA) Negative (Negative) Urine Ketones Negative (Negative) Urine Blood Moderate H (Negative) Urine Nitrite Negative (Negative) Urine Bilirubin Negative (Negative) Urine Urobilinogen <2.0 (<2.0) mg/dL Ur Leukocyte Esterase Trace H (Negative) Urine RBC 137 H (0-5) /hpf Urine WBC 5 (0-5) /hpf Urine Bacteria Rare H (None) /hpf Hyaline Casts 14 H (0-2) /lpf Urine Mucus Few H (None) /hpf Urine Opiates Screen Not Detected (NotDetected) Ur Oxycodone Screen Not Detected (NotDetected) Urine Methadone Screen Not Detected (NotDetected) Ur Propoxyphene Screen Not Detected (NotDetected) Ur Barbiturates Screen Not Detected (NotDetected) U Tricyclic Antidepress Not Detected (NotDetected) Ur Phencyclidine Scrn Not Detected (NotDetected) Ur Amphetamines Screen Not Detected (NotDetected) U Methamphetamines Scrn Not Detected (NotDetected) U Benzodiazepines Scrn Not Detected (NotDetected) Urine Cocaine Screen Not Detected (NotDetected) U Marijuana (THC) Screen Detected H (NotDetected) Serum Alcohol <10 mg/dL - EKG Data -: EKG Interpreted by Me EKG Comments: 12-lead Electrocardiogram Interpretation Note EKG was reviewed and interpreted by myself. 12-lead ECG performed at 1527 is interpreted by me as revealing normal sinus rhythm at a rate of 89 beats per minute. [place] is normal. TX interval is 170 ms, QRS durations 104 ms, QTc is 412 ms.. There were no ST or T wave abnormalities to suggest myocardial ischemia or injury. R wave progression across the precordium was satisfactory. By my interpretation this EKG is non-diagnostic for acute ischemia. Disposition Clinical Impression: Breakthrough seizure Narrative: You cannot operate a motor vehicle or large machinery until 6 months seizure free. Disposition: HOME SELF-CARE Condition: Good Instructions (If sedation given, give patient instructions): Seizure/Epilepsy Discharge Instructions & Follow-Up Prescriptions: levETIRAcetam [Keppra] 500 mg PO Q12HR 30 Days #60 tab Is patient prescribed a controlled substance at d/c from ED?: No Referrals: None,Stated [Primary Care Provider] - 1-2 days Ricardo Elizabeth [STAFF PHYSICIAN] - 1-2 days John Ibarra DO [STAFF PHYSICIAN] - 1-2 days Time of Disposition: 18:15
[2021-08-07 18:18] VITALS: RESP 16
[2021-08-07 19:24] VITALS: BP 106/70; PULSE 70; TEMP 98.2
== END 2021-08-07 19:15 | disposition home or self-care (01) ==
LOC: EC 15:21
DX: R56.9 Unspecified convulsions (principal); F17.200 Nicotine dependence, unspecified, uncomplicated
CPT/HCPCS: 36415; 93005; 80053; 83735; 85025; 81001; 80306; 99285; 96374; 96361; G0480; J1953; 80320

== ENCOUNTER → 2022-05-16 | Outpatient (CLI) | payer OTHER ==
[2022-05-16 22:37] LABS: Basophils # (A) 0.08 X 10*3/uL (0.00-0.10); Basophils % (A) 0.9 %; Eosinophils # (A) 0.06 X 10*3/uL (0.04-0.35); Eosinophils % (A) 0.6 %; HCT 42.5 % (39.6-50.0); HGB 13.6 g/dL (13.0-17.0); Immature Grans, Automated 0.2 %; Lymphocytes # (A) 2.07 X 10*3/uL (0.90-5.00); Lymphocytes % (A) 22.4 %; MCH 29.8 pg (27.0-32.0); MCV 93.2 fL (80.0-97.0); Mean Platelet Volume 9.9 fL (9.5-12.2); Monocytes % (A) 6.5 %; NRBC Per 100 WBC 0 /100 WBCS (0.0-0.0); Neutrophils # (A) 6.41 X 10*3/uL (1.80-7.70); Neutrophils % (A) 69.4 %; Platelet Count 394 X 10*3/uL (140-440); RBC 4.56 X 10*6/uL (4.40-5.60); RDW 14.6 % (11.5-14.5); WBC 9.24 X 10*3/uL (4.50-10.00)
[2022-05-16 23:13] LABS: African American GFR (CKD) 126.8 (60.0-200.0); Non-African American GFR(CKD) 109.4 (60.0-200.0)
== END | disposition home or self-care (01) ==
LOC: LABWHC1 15:54
PROVIDERS: ATTEND Dermatology
DX: L40.0 Psoriasis vulgaris (principal)
CPT/HCPCS: 36415; 82565; 84450; 84460; 85025; 86480

== ENCOUNTER 2023-03-31 07:34 | Emergency (ER) | payer OTHER ==
[2023-03-31] MEDS ORDERED: ALBUTEROL HFA INHALER INHALATION STA (08:07)
[2023-03-31] MEDS ORDERED: SODIUM CHLORIDE 0.9% 1,000 ML IV STA (08:07)
[2023-03-31] MEDS ORDERED: ACETAMINOPHEN TAB 500 MG TAB PO STA (08:09)
[2023-03-31 08:10] VITALS: RESP 18
--- NOTE | 2023-03-31 08:11 | ED ---
General Adult HPI - General Chief complaint: Upper Respiratory Infection Stated complaint: Cough and congestion Time Seen by Provider: 03/31/23 07:36 Source: patient, RN notes reviewed Mode of arrival: ambulatory Limitations: no limitations - History of Present Illness Initial comments: Patient is a pleasant 42-year-old male present to the emergency department with concerns with cough and congestion. Onset of symptoms was around 3 days ago. Patient does have sinus and nasal congestion. Patient also has some chest congestion and cough. Occasional sputum, unclear if there is color. Patient has had chills and myalgias and fatigue. Patient states no dyspnea. Patient did feel lightheaded prior to arrival. - Related Data Home Medications Medication Instructions Recorded Confirmed Adalimumab [Humira(Cf) Pen] 40 mg SQ Q14D 11/03/19 10/07/20 PARoxetine HCL [Paxil] 30 mg PO DAILY 11/03/19 10/07/20 traZODone HCL [Desyrel] 100 mg PO HS 11/03/19 10/07/20 Loratadine [Claritin] 10 mg PO DAILY PRN 06/12/20 10/07/20 Meloxicam 15 mg PO DAILY 06/12/20 10/07/20 Sildenafil Citrate 50 mg PO DAILY PRN 10/06/20 10/07/20 busPIRone HCL [Buspar] 7.5 mg PO TID PRN 10/06/20 10/07/20 tiZANidine HCL 4 mg PO HS 10/06/20 10/07/20 Previous Rx's Medication Instructions Recorded ARIPiprazole [Abilify] 2.5 mg PO DAILY #30 tab 06/15/20 Folic Acid 1 mg PO DAILY #30 tablet 06/15/20 Ibuprofen [Motrin] 400 mg PO Q6HR PRN tab 06/15/20 Multivitamins, Thera [Multivitamin] 1 tab PO DAILY #30 tablet 06/15/20 Thiamine [Vitamin B-1] 100 mg PO DAILY #30 tablet 06/15/20 levETIRAcetam [Keppra] 500 mg PO Q12HR 30 Days #60 tab 08/07/21 Allergies Allergy/AdvReac Type Severity Reaction Status Date / Time No Known Allergies Allergy Verified 08/07/21 15:28 Review of Systems ROS Statement: Those systems with pertinent positive or pertinent negative responses have been documented in the HPI. ROS Other: All systems not noted in ROS Statement are negative. Respiratory: Denies: dyspnea Cardiovascular: Denies: chest pain Gastrointestinal: Denies: abdominal pain Musculoskeletal: Denies: back pain Neurological: Denies: weakness Past Medical History Past Medical History: Seizure Disorder Additional Past Medical History / Comment(s): kidney stones, psorasis, hx alcoholism, History of Any Multi-Drug Resistant Organisms: None Reported Additional Past Surgical History / Comment(s): oral surgery, Past Anesthesia/Blood Transfusion Reactions: No Reported Reaction Past Psychological History: Anxiety, Bipolar Smoking Status: Current every day smoker, Vaper Past Alcohol Use History: None Reported, Abuse, Daily, Heavy Past Drug Use History: Marijuana General Exam Limitations: no limitations General appearance: alert, in no apparent distress Head exam: Present: normocephalic Eye exam: Present: normal appearance Neck exam: Present: normal inspection Respiratory exam: Present: rhonchi Cardiovascular Exam: Present: regular rate, normal rhythm GI/Abdominal exam: Present: soft. Absent: tenderness Extremities exam: Present: normal inspection. Absent: pedal edema, calf tenderness Neurological exam: Present: alert Psychiatric exam: Present: normal affect, normal mood Skin exam: Present: normal color Course Vital Signs 03/31/23 03/31/23 03/31/23 07:39 07:51 07:55 Temperature 97.2 F L Pulse Rate 58 L Respiratory 18 18 Rate Blood Pressure 110/97 O2 Sat by Pulse 100 Oximetry 03/31/23 08:50 Temperature Pulse Rate 75 Respiratory 18 Rate Blood Pressure 102/71 O2 Sat by Pulse 98 Oximetry EKG Findings - EKG Results: EKG: interpreted by ERMD (High QRS voltage with repolarization change), sinus rhythm, normal axis Medical Decision Making - Medical Decision Making Was pt. sent in by a medical professional or institution (, PA, INDUSTRIAL CHEMIST, urgent care, hospital, or care home...) When possible be specific @ -Patient was sent in by work Did you speak to anyone other than the patient for history (EMS, parent, family, police, friend...)? What history was obtained from this source @ -No Did you review nursing and triage notes (agree or disagree)? Why? @ -I reviewed and agree with nursing and triage notes Were old charts reviewed (outside hosp., previous admission, EMS record, old EKG, old radiological studies, urgent care reports/EKG's, care home records)? Report findings @ -No old charts were reviewed Differential Diagnosis (chest pain, altered mental status, abdominal pain women, abdominal pain men, vaginal bleeding, weakness, fever, dyspnea, syncope, headache, dizziness, GI bleed, back pain, seizure, CVA, palpatations, mental health, musculoskeletal)? @ -Differential Fever: Pneumonia, viral URI, endocarditis, myocarditis, pericarditis, otitis, sinusitis, peritonsillar Abscess, retropharyngeal Abscess, epiglottitis, peritonitis, appendicitis, Sara cystitis, diverticulitis, hepatitis, colitis, UTI, PID, TOA, pyelonephritis, prostatitis, epididymitis, meningitis, encephalitis, pulmonary embolism, CVA, thyroid storm, pancreatitis, adrenal c risis, cavernous sinus thrombosis, this is not meant to be an all-inclusive list. EKG interpreted by me (3pts min.). @ -As above X-rays interpreted by me (1pt min.). @ -None done CT interpreted by me (1pt min.). @ -None done U/S interpreted by me (1pt. min.). @ -None done What testing was considered but not performed or refused? (CT, X-rays, U/S, labs)? Why? @ -None What meds were considered but not given or refused? Why? @ -None Did you discuss the management of the patient with other professionals (professionals i.e. , PA, INDUSTRIAL CHEMIST, lab, RT, psych nurse, social service technician, radio communications superintendent, teacher, traffic control officer, trimming caser)? Give summary @ -No Was smoking cessation discussed for >3mins.? @ -No Was critical care preformed (if so, how long)? @ -No Were there social determinants of health that impacted care today? How? (Homelessness, low income, unemployed, alcoholism, drug addiction, alcantara sportation, low edu. Level, literacy, decrease access to med. care, long term, rehab)? @ -No Was there de-escalation of care discussed even if they declined (Discuss DNR or withdrawal of care, Hospice)? DNR status @ -No What co-morbidities impacted this encounter? (DM, HTN, Smoking, COPD, CAD, Cancer, CVA, ARF, Chemo, Hep., AIDS, mental health diagnosis, sleep apnea, morbid obesity)? @ -None Was patient admitted / discharged? Hospital course, mention meds given and route, prescriptions, significant lab abnormalities, going to OR and other pertinent info. @ -Patient reevaluated and updated. Patient will be discharged and recommended to quarantine for 2 more days and then mask for 5 days following this. Undiagnosed new problem with uncertain prognosis? @ -No Drug Therapy requiring intensive monitoring for toxicity (Heparin, Nitro, Insulin, Cardizem)? @ -No Were any procedures done? @ -No Diagnosis/symptom? @ -COVID-19 Acute, or Chronic, or Acute on Chronic? @ -Acute Uncomplicated (without systemic symptoms) or Complicated (systemic symptoms)? @ -Default Side effects of treatment? @ -No Exacerbation, Progression, or Severe Exacerbation? @ -No Poses a threat to life or bodily function? How? (Chest pain, [place], [place], pneumonia, PE, COPD, DKA, ARF, appy, cholecystitis, CVA, Diverticulitis, Homicidal, Suicidal, threat to staff... and all critical care pts) @ -No - Lab Data Result diagrams: 03/31/23 08:27 03/31/23 08:27 Lab Results 03/31/23 03/31/23 03/31/23 Range/Units 08:27 08:27 08:27 WBC 5.6 (3.8-10.6) k/uL RBC 5.21 (4.30-5.90) m/uL Hgb 15.7 (13.0-17.5) gm/dL Hct 47.7 (39.0-53.0) % MCV 91.7 (80.0-100.0) fL MCH 30.1 (25.0-35.0) pg MCHC 32.8 (31.0-37.0) g/dL RDW 13.2 (11.5-15.5) % Plt Count 180 (150-450) k/uL MPV 8.4 Neutrophils % 73 % Lymphocytes % 19 % Monocytes % 5 % Eosinophils % 0 % Basophils % 1 % Neutrophils # 4.0 (1.3-7.7) k/uL Lymphocytes # 1.0 (1.0-4.8) k/uL Monocytes # 0.3 (0-1.0) k/uL Eosinophils # 0.0 (0-0.7) k/uL Basophils # 0.0 (0-0.2) k/uL PT (10.0-12.5) sec INR (<1.2) APTT (22.0-30.0) sec D-Dimer (<0.60) mg/L FEU Sodium 139 (137-145) mmol/L Potassium 3.5 (3.5-5.1) mmol/L Chloride 104 (98-107) mmol/L Carbon Dioxide 21 L (22-30) mmol/L Anion Gap 14 mmol/L BUN 21 H (9-20) mg/dL Creatinine 0.88 (0.66-1.25) mg/dL Est GFR (CKD-EPI)AfAm >90 (>60 ml/min/1.73 sqM) Est GFR (CKD-EPI)NonAf >90 (>60 ml/min/1.73 sqM) Glucose 127 H (74-99) mg/dL Plasma Lactic Acid Roe (0.7-2.0) mmol/L Calcium 9.1 (8.4-10.2) mg/dL Magnesium 1.6 (1.6-2.3) mg/dL Total Bilirubin 0.5 (0.2-1.3) mg/dL AST 47 (17-59) U/L ALT 40 (4-49) U/L Alkaline Phosphatase 81 (38-126) U/L Total Protein 7.5 (6.3-8.2) g/dL Albumin 5.0 (3.5-5.0) g/dL Urine Color Urine Appearance (Clear) Urine pH (5.0-8.0) Ur Specific [place] (1.001-1.035) Urine Protein (Negative) Urine Glucose (UA) (Negative) Urine Ketones (Negative) Urine Blood (Negative) Urine Nitrite (Negative) Urine Bilirubin (Negative) Urine Urobilinogen (<2.0) mg/dL Ur Leukocyte Esterase (Negative) Urine RBC (0-5) /hpf Urine WBC (0-5) /hpf Ur Squamous Epith Cells (0-4) /hpf Urine Bacteria (None) /hpf Urine Mucus (None) /hpf Serum Alcohol <10 mg/dL Influenza Type A (PCR) Not Detected (Not Detectd) Influenza Type B (PCR) Not Detected (Not Detectd) RSV (PCR) Not Detected (Not Detectd) SARS-CoV-2 (PCR) Detected A (Not Detectd) 03/31/23 03/31/23 03/31/23 Range/Units 08:27 08:27 08:53 WBC (3.8-10.6) k/uL RBC (4.30-5.90) m/uL Hgb (13.0-17.5) gm/dL Hct (39.0-53.0) % MCV (80.0-100.0) fL MCH (25.0-35.0) pg MCHC (31.0-37.0) g/dL RDW (11.5-15.5) % Plt Count (150-450) k/uL MPV Neutrophils % % Lymphocytes % % Monocytes % % Eosinophils % % Basophils % % Neutrophils # (1.3-7.7) k/uL Lymphocytes # (1.0-4.8) k/uL Monocytes # (0-1.0) k/uL Eosinophils # (0-0.7) k/uL Basophils # (0-0.2) k/uL PT 10.4 (10.0-12.5) sec INR 0.9 (<1.2) APTT 43.4 H (22.0-30.0) sec D-Dimer <0.17 (<0.60) mg/L FEU Sodium (137-145) mmol/L Potassium (3.5-5.1) mmol/L Chloride (98-107) mmol/L Carbon Dioxide (22-30) mmol/L Anion Gap mmol/L BUN (9-20) mg/dL Creatinine (0.66-1.25) mg/dL Est GFR (CKD-EPI)AfAm (>60 ml/min/1.73 sqM) Est GFR (CKD-EPI)NonAf (>60 ml/min/1.73 sqM) Glucose (74-99) mg/dL Plasma Lactic Acid Roe 2.7 H* (0.7-2.0) mmol/L Calcium (8.4-10.2) mg/dL Magnesium (1.6-2.3) mg/dL Total Bilirubin (0.2-1.3) mg/dL AST (17-59) U/L ALT (4-49) U/L Alkaline Phosphatase (38-126) U/L Total Protein (6.3-8.2) g/dL Albumin (3.5-5.0) g/dL Urine Color Yellow Urine Appearance Clear (Clear) Urine pH 5.5 (5.0-8.0) Ur Specific [place] 1.027 (1.001-1.035) Urine Protein Trace H (Negative) Urine Glucose (UA) Negative (Negative) Urine Ketones 1+ H (Negative) Urine Blood Moderate H (Negative) Urine Nitrite Negative (Negative) Urine Bilirubin Negative (Negative) Urine Urobilinogen <2.0 (<2.0) mg/dL Ur Leukocyte Esterase Negative (Negative) Urine RBC 67 H (0-5) /hpf Urine WBC 2 (0-5) /hpf Ur Squamous Epith Cells <1 (0-4) /hpf Urine Bacteria Rare H (None) /hpf Urine Mucus Rare H (None) /hpf Serum Alcohol mg/dL Influenza Type A (PCR) (Not Detectd) Influenza Type B (PCR) (Not Detectd) RSV (PCR) (Not Detectd) SARS-CoV-2 (PCR) (Not Detectd) Disposition Clinical Impression: COVID-19 Disposition: HOME SELF-CARE Condition: Stable Instructions (If sedation given, give patient instructions): COVID-19 (Coronavirus Disease 2019) (ED) Additional Instructions: Please do follow-up with primary care physician in the next 1 to 2 days for recheck. Return for difficulty breathing, uncontrolled fever, not tolerating fluids, concern for dehydration, worsening symptoms or other concerns. [id number] vitamin C, vitamin D, and zinc. Continue to quarantine for 2 more days. Wear mask for 5 days following that. Is patient prescribed a controlled substance at d/c from ED?: No Referrals: Renaldo Lackey MD [STAFF PHYSICIAN] - 1-2 days Time of Disposition: 09:31
[2023-03-31 08:43] LABS: Basophils % (A) 1 %; Eosinophils % (A) 0 %; HCT 47.7 % (39.0-53.0); HGB 15.7 gm/dL (13.0-17.5); Lymphocytes % (A) 19 %; MCH 30.1 pg (25.0-35.0); MCHC 32.8 g/dL (31.0-37.0); MCV 91.7 fL (80.0-100.0); Mean Platelet Volume 8.4; Monocytes # (A) 0.3 k/uL (0-1.0); Monocytes % (A) 5 %; Neutrophils % (A) 73 %; Platelet Count 180 k/uL (150-450); RBC 5.21 m/uL (4.30-5.90); RDW 13.2 % (11.5-15.5); WBC 5.6 k/uL (3.8-10.6)
[2023-03-31 08:55] LABS: INR 0.9 (<1.2); Partial Thromboplastin Time 43.4 sec (22.0-30.0); Prothrombin Time 10.4 sec (10.0-12.5)
[2023-03-31 08:59] LABS: ALT 40 U/L (4-49); AST 47 U/L (17-59); African American GFR (CKD) >90 (>60 ml/min/1.73 sqM); Alcohol <10 mg/dL; Alkaline Phosphatase 81 U/L (38-126); Anion Gap 14 mmol/L; Blood Urea Nitrogen 21 mg/dL (9-20); Calcium 9.1 mg/dL (8.4-10.2); Carbon Dioxide 21 mmol/L (22-30); Chloride 104 mmol/L (98-107); Glucose 127 mg/dL (74-99); Magnesium 1.6 mg/dL (1.6-2.3); Non-African American GFR(CKD) >90 (>60 ml/min/1.73 sqM); Potassium 3.5 mmol/L (3.5-5.1); Sodium 139 mmol/L (137-145); Total Bilirubin 0.5 mg/dL (0.2-1.3); Total Protein 7.5 g/dL (6.3-8.2)
[2023-03-31] MEDS ORDERED: SODIUM CHLORIDE 0.9% 500 ML 500 ML IV STA (09:17)
[2023-03-31 09:18] LABS: Appearance,Urine Clear (Clear); Bacteria,Urine Rare /hpf; Bilirubin,Urine Negative (Negative); Blood,Urine Moderate (Negative); Color,Urine Yellow; Glucose,Urine (UA) Negative (Negative); Ketones,Urine 1+ (Negative); Leukocyte Esterase,Urine Negative (Negative); Mucus,Urine Rare /hpf; Nitrite,Urine Negative (Negative); PH, Urine 5.5 (5.0-8.0); Protein,Urine Trace (Negative); RBC,Urine 67 /hpf (0-5); Specific Gravity,Urine 1.027 (1.001-1.035); Squamous Epithelial Cell,Urine <1 /hpf (0-4); Urobilinogen,Urine <2.0 mg/dL (<2.0); WBC,Urine 2 /hpf (0-5)
--- NOTE | 2023-03-31 09:38 | XR ---
EXAMINATION TYPE: XR chest 2V DATE OF EXAM: 03/31/2023 COMPARISON: NONE HISTORY: Chest pain TECHNIQUE: Frontal and lateral views of the chest are obtained. FINDINGS: There is no focal air space opacity. No evidence for pneumothorax. No pleural effusion. The cardiac silhouette size is within normal limits. The osseous structures are grossly intact. IMPRESSION: 1. No acute cardiopulmonary process.
[2023-03-31 10:42] VITALS: BP 119/72; PULSE 63; TEMP 97.9
== END 2023-03-31 10:23 | disposition home or self-care (01) ==
LOC: EC 07:34
DX: U07.1 COVID-19 (principal); R00.1 Bradycardia, unspecified; F41.9 Anxiety disorder, unspecified; F31.9 Bipolar disorder, unspecified; F17.290 Nicotine dependence, other tobacco product, uncomplicated; F12.90 Cannabis use, unspecified, uncomplicated; Z79.899 Other long term (current) drug therapy
CPT/HCPCS: 36415; 94640; 93005; 85379; 80053; 87449; 83605; 83735; 85025; 85610; 85730; 81001; 87636; 71046; 99284; 96360; 96361; G0480; 80320

== ENCOUNTER 2023-08-15 03:53 | Emergency (ER) | payer BC, OTHER ==
[2023-08-15 04:02] VITALS: TEMP 98.9
[2023-08-15] MEDS: SODIUM CHLORIDE 0.9% 1,000 ML IV ONE (04:30)
[2023-08-15] MEDS: DIPH,PERTUS(ACELL)TETVAC-LF 0.5 ML VIAL IM ONE (04:32)
[2023-08-15] MEDS: MORPHINE SULFATE 4 MG/ML SYRINGE IV STA (04:35)
[2023-08-15] MEDS: ACETAMINOPHEN TAB 500 MG TAB PO STA (04:38)
[2023-08-15 04:46] LABS: Basophils # (A) 0.1 k/uL (0-0.2); Basophils % (A) 1 %; Eosinophils # (A) 0.1 k/uL (0-0.7); Eosinophils % (A) 1 %; HGB 12.3 gm/dL (13.0-17.5); Lymphocytes # (A) 1.7 k/uL (1.0-4.8); Lymphocytes % (A) 15 %; MCH 30.1 pg (25.0-35.0); MCHC 32.4 g/dL (31.0-37.0); Mean Platelet Volume 8.1; Monocytes # (A) 0.7 k/uL (0-1.0); Monocytes % (A) 7 %; Neutrophils # (A) 8.3 k/uL (1.3-7.7); Neutrophils % (A) 76 %; Platelet Count 291 k/uL (150-450); RBC 4.09 m/uL (4.30-5.90); RDW 13.4 % (11.5-15.5)
[2023-08-15] MEDS: LIDOCAINE 2%-EPI 1:100,000 20 ML VIAL SQ STA (04:55)
[2023-08-15 05:00] LABS: ALT 23 U/L (4-49); African American GFR (CKD) >90 (>60 ml/min/1.73 sqM); Anion Gap 7 mmol/L; Blood Urea Nitrogen 18 mg/dL (9-20); Calcium 7.9 mg/dL (8.4-10.2); Carbon Dioxide 24 mmol/L (22-30); Chloride 109 mmol/L (98-107); Glucose 91 mg/dL (74-99); Non-African American GFR(CKD) >90 (>60 ml/min/1.73 sqM); Sodium 140 mmol/L (137-145)
[2023-08-15 05:06] LABS: INR 0.9 (<1.2); Partial Thromboplastin Time 35.6 sec (22.0-30.0); Prothrombin Time 10.3 sec (10.0-12.5)
[2023-08-15 05:12] LABS: AST 48 U/L (17-59); Albumin 4.4 g/dL (3.5-5.0); Alkaline Phosphatase 131 U/L (38-126); Potassium 4.2 mmol/L (3.5-5.1); Total Protein 6.5 g/dL (6.3-8.2)
--- NOTE | 2023-08-15 05:50 | ED ---
General Adult HPI <Tee Echols - Last Filed: 08/15/23 05:51> <Jose Luis Oconnor Tova - Last Filed: 08/15/23 07:36> - General Source: patient, EMS, RN notes reviewed, old records reviewed Mode of arrival: EMS <Cristobal Ibrahim - Last Filed: 08/15/23 21:25> - General Chief complaint: Fall Stated complaint: Fall-[facility] Time Seen by Provider: 08/15/23 04:06 - History of Present Illness Initial comments: Patient is a 43-year-old male who presents emergency department complaining of fall. Patient works at a [employer] factory, and slipped on something at the [employer] factory fell backwards and struck his head on the ground. Believes he had brief loss of consciousness. Is not on blood thinners. Endorses some neck pain. Also has a laceration to his forehead. No other obvious injuries. Presents for further evaluation at this time. (Cristobal Ibrahim) - Related Data Home Medications Medication Instructions Recorded Confirmed Adalimumab [Humira(Cf) Pen] 40 mg SQ Q14D 11/03/19 10/07/20 PARoxetine HCL [Paxil] 30 mg PO DAILY 11/03/19 10/07/20 traZODone HCL [Desyrel] 100 mg PO HS 11/03/19 10/07/20 Loratadine [Claritin] 10 mg PO DAILY PRN 06/12/20 10/07/20 Meloxicam 15 mg PO DAILY 06/12/20 10/07/20 Sildenafil Citrate 50 mg PO DAILY PRN 10/06/20 10/07/20 busPIRone HCL [Buspar] 7.5 mg PO TID PRN 10/06/20 10/07/20 tiZANidine HCL 4 mg PO HS 10/06/20 10/07/20 Previous Rx's Medication Instructions Recorded ARIPiprazole [Abilify] 2.5 mg PO DAILY #30 tab 06/15/20 Folic Acid 1 mg PO DAILY #30 tablet 06/15/20 Ibuprofen [Motrin] 400 mg PO Q6HR PRN tab 06/15/20 Multivitamins, Thera [Multivitamin] 1 tab PO DAILY #30 tablet 06/15/20 Thiamine [Vitamin B-1] 100 mg PO DAILY #30 tablet 06/15/20 levETIRAcetam [Keppra] 500 mg PO Q12HR 30 Days #60 tab 08/07/21 Allergies Allergy/AdvReac Type Severity Reaction Status Date / Time No Known Allergies Allergy Verified 08/07/21 15:28 Review of Systems ROS Other: All systems not noted in ROS Statement are negative. <Tee Echols - Last Filed: 08/15/23 05:51> ROS Other: All systems not noted in ROS Statement are negative. <Jose Luis Oconnor - Last Filed: 08/15/23 07:36> ROS Other: All systems not noted in ROS Statement are negative. <Cristobal Ibrahim - Last Filed: 08/15/23 21:25> ROS Statement: Those systems with pertinent positive or pertinent negative responses have been documented in the HPI. Review of Systems: CONST: Denies fever EYES: Denies blurry vision ENT: Denies nasal congestion C/V: Denies Chest pain RESP: Denies shortness of breath GI: Denies abdominal pain : Denies dysuria SKIN: Endorses face laceration MSK: Endorses neck pain NEURO: Denies headache (Cristobal Ibrahim) Past Medical History Past Medical History: Seizure Disorder Additional Past Medical History / Comment(s): kidney stones, psorasis, hx alcoholism, History of Any Multi-Drug Resistant Organisms: None Reported Additional Past Surgical History / Comment(s): oral surgery, Past Anesthesia/Blood Transfusion Reactions: No Reported Reaction Past Psychological History: Anxiety, Bipolar Smoking Status: Former smoker, Vaper Past Alcohol Use History: None Reported, Abuse, Daily, Heavy Past Drug Use History: Marijuana <Cristobal Ibrahim - Last Filed: 08/15/23 21:25> General Exam <Cristobal Ibrahim - Last Filed: 08/15/23 21:25> - General Exam Comments Initial Comments: General: He is in mild distress. HEAD: Forehead laceration. Negative Walker sign, negative raccoon eyes. EYES: PERRLA, EOMI, conjunctiva normal, no discharge. Pulls are 3 mm and equal bilaterally. ENT: Hearing grossly intact, normal oropharynx. RESPIRATORY: Clear breath sounds bilaterally. No wheezes, rales, or rhonchi. C/V: Regular rate and rhythm. S1 and S2 auscultated, no edema, peripheral pulses 2+ and intact throughout ABD: Abd is soft, nontender, nondistended EXT: Normal range of motion, no obvious deformity. Mild midline cervical spine tenderness to palpation. No thoracic or lumbar spine tenderness to palpation. SKIN: 5 cm laceration over the forehead NEURO: Alert and oriented x 4. GCS of 15. (Cristobal Ibrahim) Course Vital Signs 08/15/23 08/15/23 08/15/23 03:54 05:42 07:31 Temperature 98.9 F Pulse Rate 84 Respiratory 18 14 Rate Blood Pressure 138/87 124/77 123/70 O2 Sat by Pulse 97 Oximetry 08/15/23 07:47 Temperature Pulse Rate 78 Respiratory 18 Rate Blood Pressure O2 Sat by Pulse 96 Oximetry Procedures - Laceration Laceration #1 Site: face Size (cm): 5 Description: linear Depth: simple, single layer Anesthetic Used: lidocaine 2%, with epi Anesthesia Technique: local infiltration Amount (mls): 1 Pre-repair: wound explored, irrigated extensively, deep structures intact Type of Sutures: nylon Size of Sutures: 6-0 Number of Sutures: 16 Technique: simple, interrupted Patient Tolerated Procedure: well, no complications <Tee Echols - Last Filed: 08/15/23 05:51> Medical Decision Making - Lab Data Result diagrams: 08/15/23 04:06 08/15/23 04:06 <Tee Echols - Last Filed: 08/15/23 05:51> - Lab Data Result diagrams: 08/15/23 04:06 08/15/23 04:06 <Jose Luis Oconnor - Last Filed: 08/15/23 07:36> - Lab Data Result diagrams: 08/15/23 04:06 08/15/23 04:06 <Cristobal Ibrahim - Last Filed: 08/15/23 21:25> - Medical Decision Making Patient reevaluated after signout, resting comfortably. Imaging including CT brain, CT facial bones, CT cervical spine and chest x-ray are negative for traumatic injury. Patient's laceration was repaired by Dr. Ibrahim. Patient is stable for discharge at this time. (Jose Luis Oconnor) Was pt. sent in by a medical professional or institution (, PA, ORACLE DATABASE CONSULTANT, urgent care, hospital, or [facility]...) When possible be specific @ -No Did you speak to anyone other than the patient for history (EMS, parent, family, police, friend...)? What history was obtained from this source @ -No Did you review nursing and triage notes (agree or disagree)? Why? @ -I reviewed and agree with nursing and triage notes Were old charts reviewed (outside hosp., previous admission, EMS record, old EKG, old radiological studies, urgent care reports/EKG's, [facility] records)? Report findings @ -No old charts were reviewed Differential Diagnosis (chest pain, altered mental status, abdominal pain women, abdominal pain men, vaginal bleeding, weakness, fever, dyspnea, syncope, headache, dizziness, GI bleed, back pain, seizure, CVA, palpatations, mental health, musculoskeletal)? @ -Differential Musculoskeletal Muscular strain, contusion, ligament sprain, fracture, arthritis, septic arthritis, bursitis, cellulitis, muscle spasm, nerve compression, DVT, arterial occlusion, herpes zoster, electrolyte abnormality, tumor.... This is not meant to be in all inclusive list EKG interpreted by me (3pts min.). @ -None done X-rays interpreted by me (1pt min.). @ -Pending CT interpreted by me (1pt min.). @ -Pending U/S interpreted by me (1pt. min.). @ -None done What testing was considered but not performed or refused? (CT, X-rays, U/S, labs)? Why? @ -None What meds were considered but not given or refused? Why? @ -None Did you discuss the management of the patient with other professionals (professionals i.e. , PA, ORACLE DATABASE CONSULTANT, lab, RT, psych nurse, social human services assistants, hypercil core transformer assembler, teacher, training officer, rn field case manager)? Give summary @ -No Was smoking cessation discussed for >3mins.? @ -No Was critical care preformed (if so, how long)? @ -No Were there social determinants of health that impacted care today? How? (Homelessness, low income, unemployed, alcoholism, drug addiction, transportation, low edu. Level, literacy, decrease access to med. care, fdc, rehab)? @ -No Was there de-escalation of care discussed even if they declined (Discuss DNR or withdrawal of care, Hospice)? DNR status @ -No What co-morbidities impacted this encounter? (DM, HTN, Smoking, COPD, CAD, Cancer, CVA, ARF, Chemo, Hep., AIDS, mental health diagnosis, sleep apnea, morbid obesity)? @ -None Was patient admitted / discharged? Hospital course, mention meds given and route, prescriptions, significant lab abnormalities, going to OR and other pertinent info. @ -Patient presents after mechanical fall. Fell and struck his head on the ground. Laceration repaired by assisting midlevel provider. We will obtain CT brain, C-spine, facial bones as well as chest x-ray. Patient in agreement this plan. Vital signs within acceptable limits. Will be symptomatically treated with IV fluids, tetanus booster, IV pain medications. Vital signs within acceptable limits. Laboratory studies relatively unremarkable. Imaging is still pending at this time. Patient signed out to Dr. Oconnor pending results of imaging. Undiagnosed new problem with uncertain prognosis? @ -No Drug Therapy requiring intensive monitoring for toxicity (Heparin, Nitro, Insulin, Cardizem)? @ -No Were any procedures done? @ -No Diagnosis/symptom? @ -Fall, forehead laceration, concussion Acute, or Chronic, or Acute on Chronic? @ -Acute Uncomplicated (without systemic symptoms) or Complicated (systemic symptoms)? @ -Complicated Side effects of treatment? @ -None Exacerbation, Progression, or Severe Exacerbation] @ -No Poses a threat to life or bodily function? @ -Unlikely (Cristobal Ibrahim) - Lab Data Lab Results 08/15/23 08/15/23 08/15/23 Range/Units 04:06 04:06 04:06 WBC 11.0 H (3.8-10.6) k/uL RBC 4.09 L (4.30-5.90) m/uL Hgb 12.3 L (13.0-17.5) gm/dL Hct 38.0 L (39.0-53.0) % MCV 93.0 (80.0-100.0) fL MCH 30.1 (25.0-35.0) pg MCHC 32.4 (31.0-37.0) g/dL RDW 13.4 (11.5-15.5) % Plt Count 291 (150-450) k/uL MPV 8.1 Neutrophils % 76 % Lymphocytes % 15 % Monocytes % 7 % Eosinophils % 1 % Basophils % 1 % Neutrophils # 8.3 H (1.3-7.7) k/uL Lymphocytes # 1.7 (1.0-4.8) k/uL Monocytes # 0.7 (0-1.0) k/uL Eosinophils # 0.1 (0-0.7) k/uL Basophils # 0.1 (0-0.2) k/uL PT 10.3 (10.0-12.5) sec INR 0.9 (<1.2) APTT 35.6 H (22.0-30.0) sec Sodium 140 (137-145) mmol/L Potassium 4.2 (3.5-5.1) mmol/L Chloride 109 H (98-107) mmol/L Carbon Dioxide 24 (22-30) mmol/L Anion Gap 7 mmol/L BUN 18 (9-20) mg/dL Creatinine 0.71 (0.66-1.25) mg/dL Est GFR (CKD-EPI)AfAm >90 (>60 ml/min/1.73 sqM) Est GFR (CKD-EPI)NonAf >90 (>60 ml/min/1.73 sqM) Glucose 91 (74-99) mg/dL Calcium 7.9 L (8.4-10.2) mg/dL Total Bilirubin 1.0 (0.2-1.3) mg/dL AST 48 (17-59) U/L ALT 23 (4-49) U/L Alkaline Phosphatase 131 H (38-126) U/L Total Protein 6.5 (6.3-8.2) g/dL Albumin 4.4 (3.5-5.0) g/dL Disposition <Tee Echols - Last Filed: 08/15/23 05:51> Is patient prescribed a controlled substance at d/c from ED?: No Time of Disposition: 07:37 <Jose Luis Oconnor - Last Filed: 08/15/23 07:36> Is patient prescribed a controlled substance at d/c from ED?: No <Cristobal Ibrahim - Last Filed: 08/15/23 21:25> Clinical Impression: Fall, Concussion, Laceration Disposition: HOME SELF-CARE Condition: Good Instructions (If sedation given, give patient instructions): Care For Your Stitches (DC), Concussion (ED), Facial Laceration (ED) Additional Instructions: Please return for suture removal in approximately 7 days Referrals: None,Stated [Primary Care Provider] - 1-2 days
[2023-08-15] MEDS: BACITRACIN OINT 1 EACH PACKET TOPICAL ONE (06:26)
--- NOTE | 2023-08-15 07:26 | XR ---
EXAMINATION TYPE: XR chest 1V portable DATE OF EXAM: 08/15/2023 COMPARISON: 03/31/2023 INDICATION: Fall TECHNIQUE: Single frontal view of the chest is obtained. FINDINGS: The heart size is normal. The pulmonary vasculature is normal. The lungs are clear. No pneumothorax is evident. No displaced rib fractures evident. Mediastinum luisa ears normal IMPRESSION: 1. No acute pulmonary process.
--- NOTE | 2023-08-15 07:30 | CT ---
EXAMINATION TYPE: CT brain patrick wo con DATE OF EXAM: 08/15/2023 COMPARISON: None HISTORY: Pt presents to the ED via EMS with complaints of slipping on a pickle, pt has a lac on his l eft forehead. +LOC, no thinners, pt reports neck pain. CT DLP: 1007.4 mGycm, Automated exposure control for dose reduction was used. CONTRAST: None CT of the brain is performed utilizing 3 mm thick sections through the posterior fossa and 3 mm thick sections through the remaining calvarium. Study is performed within 24 hours of arrival to the hospital. No abnormal hyperdensity is present to suggest an acute intracranial hemorrhage. No mass lesion is evident. No acute infarcts are evident. Ventricles and sulci are appropriate for the patient age. Soft tissue attenuation over the right frontal region. No underlying fracture is evident. Paranasal sinuses and mastoid air cells within the [id number]-la-yhju are clear. IMPRESSIONS: 1. No acute intracranial process. Follow-up MRI can be performed as clinically indicated. CT cervical spine. COMPARISON: None CT of the cervical spine is performed in the axial plane at 2 mm thick sections. Reconstructed image s in the coronal, and sagittal plane are reviewed on the computer. No acute fractures are evident. Vertebral body alignment is normal. Posterior spinal lamellar line is intact. Mild posterior disc space narrowing is present through the cervical spine Vertebral body heights are preserved. Anterior vertebral body spurring is present C3-C6. No spinal canal stenosis is evident. No neural foraminal stenosis is evident. There is made of a rim calcification within the lateral left lobe thyroid. IMPRESSION: 1. No acute osseous abnormality cervical spine. 2. Some mild degenerative changes are present within the cervical spine. 3. Rim calcification within the left lobe thyroid. Follow-up ultrasound thyroid can be performed.
[2023-08-15 07:32] VITALS: BP 123/70
--- NOTE | 2023-08-15 07:32 | CT ---
EXAMINATION TYPE: CT facial bones wo con DATE OF EXAM: 08/15/2023 COMPARISON: None HISTORY: Pt presents to the ED via EMS with complaints of slipping on a pickle, pt has a lac on his l eft forehead. +LOC, no thinners, pt reports neck pain. CT DLP: COMBINED W/ BRAIN C SPINE mGycm CONTRAST: None The paranasal sinuses are examined in the axial plane at 2 mm thick sections. Reconstructed images i n the coronal plane were obtained. There is dental work being hardening artifact. The maxillary sinuses are clear. The ethmoid air cells are clear. The sphenoid sinuses are clear. The frontal sinuses are clear. The septum is evaluated. There is septal deviation to the left. The ostiomeatal units are patent. No acute fractures are evident. Frontal bone appears intact. Soft tissue injuries over the frontal re gion. The bones are intact. Greater wings of the sphenoid and maxillary spine are intact. Zygomatic a rches are intact. IMPRESSION: 1. No acute facial bone fracture evident.
[2023-08-15 07:48] VITALS: PULSE 78; RESP 18
== END 2023-08-15 07:48 | disposition home or self-care (01) ==
LOC: EC 03:53
DX: S01.81XA Laceration without foreign body of other part of head, initial encounter (principal); S06.0XAA Concussion with loss of consciousness status unknown, initial encounter; F17.290 Nicotine dependence, other tobacco product, uncomplicated; Z23 Encounter for immunization; W01.0XXA Fall on same level from slipping, tripping and stumbling without subsequent striking against object, initial encounter
CPT/HCPCS: 36415; 80053; 85025; 85610; 85730; 71045; 72125; 70486; 70450; 90715; 12013; 99285; 90471; 96374; 96361; J2270

== ENCOUNTER 2024-04-25 13:41 | Emergency (ER) | payer BC, OTHER ==
[2024-04-25 13:45] VITALS: RESP 18; TEMP 98
--- NOTE | 2024-04-25 14:09 | ED ---
ENT HPI - General Chief complaint: ENT Stated complaint: Sore Throat Time Seen by Provider: 04/25/24 14:08 Source: patient, RN notes reviewed Mode of arrival: ambulatory Limitations: no limitations - History of Present Illness Initial comments: 44-year-old male presented to the ER for flulike symptoms. He states for the past week he has had a sore throat, sweats, and cough. He states he is overall feeling unwell. Patient denies any chest pain but states he does have difficulty catching his breath after a coughing episode. Denies known fevers. Patient denies any headache, dizziness, lightheadedness, chest pain, abdominal pain, constipation/diarrhea or peripheral edema. Patient has taken lvdt-ptx-vvujpld DayQuil and NyQuil for symptoms without relief. Nonsmoker. Patient reports a few weeks ago he injured his right ribs and was having pain with deep breaths at that time, this has since resolved. No other complaints at this time. - Related Data Home Medications Medication Instructions Recorded Confirmed Adalimumab [Humira(Cf) Pen] 40 mg SQ Q14D 11/03/19 10/07/20 PARoxetine HCL [Paxil] 30 mg PO DAILY 11/03/19 10/07/20 traZODone HCL [Desyrel] 100 mg PO HS 11/03/19 10/07/20 Loratadine [Claritin] 10 mg PO DAILY PRN 06/12/20 10/07/20 Meloxicam 15 mg PO DAILY 06/12/20 10/07/20 Sildenafil Citrate 50 mg PO DAILY PRN 10/06/20 10/07/20 busPIRone HCL [Buspar] 7.5 mg PO TID PRN 10/06/20 10/07/20 tiZANidine HCL 4 mg PO HS 10/06/20 10/07/20 Previous Rx's Medication Instructions Recorded ARIPiprazole [Abilify] 2.5 mg PO DAILY #30 tab 06/15/20 Folic Acid 1 mg PO DAILY #30 tablet 06/15/20 Ibuprofen [Motrin] 400 mg PO Q6HR PRN tab 06/15/20 Multivitamins, Thera [Multivitamin] 1 tab PO DAILY #30 tablet 06/15/20 Thiamine [Vitamin B-1] 100 mg PO DAILY #30 tablet 06/15/20 levETIRAcetam [Keppra] 500 mg PO Q12HR 30 Days #60 tab 08/07/21 Azithromycin [Zithromax Z Pack] 0 tab PO DIRECTED #6 tab 04/25/24 Allergies Allergy/AdvReac Type Severity Reaction Status Date / Time No Known Allergies Allergy Verified 04/25/24 13:46 Review of Systems ROS Statement: Those systems with pertinent positive or pertinent negative responses have been documented in the HPI. ROS Other: All systems not noted in ROS Statement are negative. Past Medical History Past Medical History: Seizure Disorder Additional Past Medical History / Comment(s): kidney stones, psorasis, hx alcoholism, History of Any Multi-Drug Resistant Organisms: None Reported Additional Past Surgical History / Comment(s): oral surgery, Past Anesthesia/Blood Transfusion Reactions: No Reported Reaction Past Psychological History: Anxiety, Bipolar Smoking Status: Former smoker, Vaper Past Alcohol Use History: None Reported, Abuse, Daily, Heavy Past Drug Use History: Marijuana General Exam - General Exam Comments Initial Comments: Visual Physical Exam Vital signs reviewed General: Well-appearing, nontoxic, no acute distress. Head: Normocephalic, atraumatic Eyes: PERRLA, EOMI ENT: Airway patent Chest: Nonlabored breathing Skin: No visual rash, normal skin tone Neuro: Alert and oriented 3 Musculoskeletal: No gross abnormalities Limitations: no limitations General appearance: alert, in no apparent distress ENT exam: Present: normal exam, normal oropharynx, mucous membranes moist, TM's normal bilaterally Neck exam: Present: normal inspection. Absent: tenderness, meningismus, lymphadenopathy Respiratory exam: Present: normal lung sounds bilaterally. Absent: respiratory distress, wheezes, rales, rhonchi, stridor Cardiovascular Exam: Present: regular rate, normal rhythm, normal heart sounds. Absent: systolic murmur, diastolic murmur, rubs, gallop, clicks GI/Abdominal exam: Present: soft, normal bowel sounds. Absent: distended, tenderness, guarding, rebound, rigid Neurological exam: Present: alert, oriented X3, CN II-XII intact Skin exam: Present: warm, dry, intact, normal color. Absent: rash Course Vital Signs 04/25/24 04/25/24 04/25/24 13:43 15:26 15:27 Temperature 98 F 98 F Pulse Rate 96 90 Respiratory 18 18 18 Rate Blood Pressure 159/80 142/88 O2 Sat by Pulse 97 98 Oximetry Medical Decision Making - Medical Decision Making I performed the quick note portion of this chart. Electronically signed by Ziyad Tam PA-C Was pt. sent in by a medical professional or institution ([facility] Baca, [employer], urgent care, hospital, or retirement...) When possible be specific @ -No Did you speak to anyone other than the patient for history (EMS, parent, family, police, friend...)? What history was obtained from this source @ -No Did you review nursing and triage notes (agree or disagree)? Why? @ -I reviewed and agree with nursing and triage notes Were old charts reviewed (outside hosp., previous admission, EMS record, old EKG, old radiological studies, urgent care reports/EKG's, retirement records)? Report findings @ -No old charts were reviewed Differential Diagnosis (chest pain, altered mental status, abdominal pain women, abdominal pain men, vaginal bleeding, weakness, fever, dyspnea, syncope, headache, dizziness, GI bleed, back pain, seizure, CVA, palpatations, mental health, musculoskeletal)? @ -COVID, RSV, influenza, viral sinusitis, pneumonia, strep pharyngitis, this list is not meant to be all-inclusive EKG interpreted by me (3pts min.). @ -None done X-rays interpreted by me (1pt min.). @ -CXR interpreted by me concerning of a right middle lobe pneumonia. CT interpreted by me (1pt min.). @ -None done U/S interpreted by me (1pt. min.). @ -None done What testing was considered but not performed or refused? (CT, X-rays, U/S, labs)? Why? @ -None What meds were considered but not given or refused? Why? @ -None Did you discuss the management of the patient with other professionals (professionals i.e. ALAINA Baca, [employer], lab, RT, psych nurse, social media marketer, fluid jet cutter operator, teacher, human resources officer, dependency case manager)? Give summary @ -No Was smoking cessation discussed for >3mins.? @ -No Was critical care preformed (if so, how long)? @ -No Were there social determinants of health that impacted care today? How? (Homelessness, low income, unemployed, alcoholism, drug addiction, transportation, low edu. Level, literacy, decrease access to med. care, care home, rehab)? @ -No Was there de-escalation of care discussed even if they declined (Discuss DNR or withdrawal of care, Hospice)? DNR status @ -No What co-morbidities impacted this encounter? (DM, HTN, Smoking, COPD, CAD, Cancer, CVA, ARF, Chemo, Hep., AIDS, mental health diagnosis, sleep apnea, morbid obesity)? @ -None Was patient admitted / discharged? Hospital course, mention meds given and route, prescriptions, significant lab abnormalities, going to OR and other pertinent info. @ -Discharge. 44-year-old male presented to ER for evaluation of flulike symptoms. Patient originally seen as a quick note. Upon rooming, history and physical exam completed. Vitals within acceptable limits. Patient in no signs of acute distress nontoxic-appearing. Influenza, RSV and COVID-negative. Strep negative. Chest x-ray concerning of pneumonia for which patient will be started on azithromycin. Upon reevaluation, patient resting comfortably in exam no signs of distress. Results discussed with patient, all questions answered. I advised [id number]-uot-[id number] ibuprofen and Tylenol for fever and symptom control outpatient. Instructed patient to follow-up with PCP in the next 1 to 2 days for reevaluation. Strict return parameters discussed. Patient discharged in stable condition. Patient verbally expressed understanding agree with care plan. Case discussed with ED attending, Dr. Duque. Undiagnosed new problem with uncertain prognosis? @ -No Drug Therapy requiring intensive monitoring for toxicity (Heparin, Nitro, Insulin, Cardizem)? @ -No Were any procedures done? @ -No Diagnosis/symptom? @ -Pneumonia Acute, or Chronic, or Acute on Chronic? @ -Acute Uncomplicated (without systemic symptoms) or Complicated (systemic symptoms)? @ -Uncomplicated Side effects of treatment? @ -No Exacerbation, Progression, or Severe Exacerbation? @ -No Poses a threat to life or bodily function? How? (Chest pain, [place], [place], pneumonia, PE, COPD, DKA, ARF, appy, cholecystitis, CVA, Diverticulitis, Homicidal, Suicidal, threat to staff... and all critical care pts) @ -Low at this time. Pneumonia can lead to sepsis and/or hypoxia which can lead to endorgan dysfunction. - Lab Data Lab Results 04/25/24 04/25/24 Range/Units 13:47 13:47 Influenza Type A (PCR) Not Detected (Not Detectd) Influenza Type B (PCR) Not Detected (Not Detectd) RSV (PCR) Not Detected (Not Detectd) SARS-CoV-2 (PCR) Not Detected (Not Detectd) Group A Strep (PCR) NOT DETECTED (Not Detectd) - Radiology Data Radiology results: report reviewed, image reviewed Disposition Clinical Impression: Pneumonia Disposition: HOME SELF-CARE Condition: Stable Instructions (If sedation given, give patient instructions): Community Acquired Pneumonia (DC) Additional Instructions: Complete full course of azithromycin. You may take [id number] ibuprofen and Tylenol for fever control. Follow-up with PCP. Return to the ER for any new or worsening concerns. Prescriptions: Azithromycin [Zithromax Z Pack] 0 tab PO DIRECTED #6 tab Is patient prescribed a controlled substance at d/c from ED?: No Referrals: Jessi Interiano MD [Primary Care Provider] - 1-2 days Time of Disposition: 15:34
[2024-04-25 14:40] LABS: Influenza A Not Detected (Not Detectd); Influenza B Not Detected (Not Detectd); RSV Not Detected (Not Detectd)
--- NOTE | 2024-04-25 14:55 | XR ---
EXAMINATION TYPE: XR chest 2V DATE OF EXAM: 04/25/2024 2:27 PM COMPARISON: None. CLINICAL INDICATION: Male, 44 years old with history of cough, TECHNIQUE: XR chest 2V view(s) obtained. FINDINGS: The heart size is normal. The pulmonary vasculature is normal. Infiltrate is in the lingula. Correlate for atelectasis or pneumonia. Follow-up can be performed.e IMPRESSION: 1. Lingular infiltrate. Correlate for pneumonia [facility], , 04/25/2024 2:53 PM
[2024-04-25 15:27] VITALS: BP 142/88; PULSE 90
== END 2024-04-25 16:17 | disposition home or self-care (01) ==
LOC: EC 13:41
DX: J18.9 Pneumonia, unspecified organism (principal); F17.290 Nicotine dependence, other tobacco product, uncomplicated
CPT/HCPCS: 71046; 87636; 87651; 93005; 99284